=== PATIENT | male | born 1955 | race Two or more races ===

== ENCOUNTER 2016-04-21 14:37 | Inpatient (IN) | payer OTHER ==
[2016-04-21] MEDS ORDERED: ONDANSETRON 4 MG/2 ML VIAL IVP PRN (16:35)
[2016-04-21] MEDS ORDERED: ONDANSETRON DISINTEGRATING 4 MG TAB PO PRN (16:35)
[2016-04-21] MEDS: ENOXAPARIN 80 MG/0.8 ML SYR SC SCH (16:43)
[2016-04-21] MEDS ORDERED: NS 1,000 ML IV SCH (16:45)
--- NOTE | 2016-04-21 16:45 | CPEKG ---
Heart Rate: 145 RR Interval: 414 QRSD Interval: 158 QT Interval: 368 QTC Interval: 572 QRS Lisle: -103 T Wave Lisle: 76 EKG Severity - ABNORMAL ECG - EKG Impression: Atrial fibrillation with RVR Electronically Signed By: Nick Sinclair 21-Apr-2016 17:09:20
[2016-04-21] MEDS ORDERED: PROPOFOL/EMULSION 500 MG/50 ML BOTTLE IV ONE (16:46)
[2016-04-21] MEDS ORDERED: MIDAZOLAM 2 MG/2 ML VIAL ONE (16:51)
[2016-04-21] MEDS ORDERED: fentaNYL 100 MCG/2 ML INJ ONE (16:52)
[2016-04-21] MEDS ORDERED: ENOXAPARIN 80 MG/0.8 ML SYR SC SCH (17:00)
[2016-04-21] MEDS ORDERED: MIDAZOLAM 2 MG/2 ML VIAL IVP ONE (17:00)
[2016-04-21] MEDS ORDERED: WARFARIN SODIUM 5 MG TAB PO ONE (17:00)
[2016-04-21] MEDS ORDERED: fentaNYL 100 MCG/2 ML INJ IVP ONE (17:00)
--- NOTE | 2016-04-21 17:20 | PDTEE1 ---
TERESITA Cardioversion Procedure Procedure: Electrical Cardioversion, Transesophageal Echo Indications: Atrial Fibrillation Consent: Signed and in Chart Anticoagulation: Heparin Procedural Details: Pads were placed in anterior-posterior position. TERESITA probe was advanced and standard images obtained. There is no evidence of left atrial or left atrial appendage thrombus. Synchronized cardioversion attempt #1: 200J Results: Normal sinus rhythm Conclusions: Successful TERESITA Cardioversion (Procedure performed urgently.)
--- NOTE | 2016-04-21 17:24 | CPEKG ---
Heart Rate: 76 RR Interval: 789 P-R Interval: 153 QRSD Interval: 180 QT Interval: 432 QTC Interval: 486 P Wray: 91 QRS Wray: 0 T Wave Wray: 95 EKG Severity - ABNORMAL ECG - EKG Impression: A sensed and VENTRICULAR-PACED COMPLEXES Electronically Signed By: Nick Sinclair 21-Apr-2016 18:02:33
--- NOTE | 2016-04-21 17:56 | GHP ---
[f rep st] HISTORY AND PHYSICAL DATE OF ADMISSION: 04/21/2016 CHIEF COMPLAINT: Lightheadedness. HISTORY OF PRESENT ILLNESS: A 60-year-old male with a known history of coronary artery disease and ischemic cardiomyopathy who presents to an outside hospital with complaints of severe dizziness and a sensation of imminently passing out when exerting even minimal activity including simple ADLs. The patient reports being in his normal state of health. Quite stable in his cardiac medications. Was seen by his mason apprentice last week with only a mild up -titration in his diuretic regimen. Otherwise without chest pain, shortness of breath or presyncopal symptoms. The patient reports 48 hours ago noting that with minimal exertion he had the sensation that he would pass out and feel short of breath. The patient would sit and the symptoms would resolve. The patient denied at that time and with these episodes having any chest discomfort. Denied any vision changes. Denied any notable palpitations. Denied any baseline shortness of breath and reported that when he sat and rested, he would no longer feel winded. Denied any new lower extremity edema or abdominal distention. Denied any nausea, any vomiting , changes in his bowel habits, dysuria, or hematuria. PAST MEDICAL HISTORY: 1. Coronary artery disease status post percutaneous intervention in 2008 with AICD placement for VT. 2. History of ventricular tachycardia with AICD that was placed in 2008 and exchanged for a Bi-V AICD in 2016. 3. Ischemic cardiomyopathy with an ejection fraction less than 25%. SOCIAL HISTORY: Negative for tobacco, alcohol, or illicit drugs. FAMILY HISTORY: Positive for heart disease. Father from an [place]. ADVANCE DIRECTIVE: Patient is full cor, full tube. His daughter would be his medical decision maker. REVIEW OF SYSTEMS: A 10-point review of systems is negative with the exception of that reported in the HPI. PHYSICAL EXAMINATION: VITAL SIGNS: Blood pressure 100/59, heart rate in the 130s to 150s, oxygen saturation 96% on 3 L. afebrile. GENERAL: This is a pleasant appearing middle-aged male in no acute distress. HEENT: Notable for moist mucous membranes. Eye exam is negative for any icterus. CARDIAC: Patient is irregularly, irregular. PULMONARY: Good respiratory effort, is clear to auscultation bilaterally. GASTROINTESTINAL: Positive bowel sounds. ABDOMEN: Soft and nontender in all 4 quadrants. MUSCULOSKELETAL: Negative for any lower extremity edema. SKIN: Negative for any rashes. NEUROLOGIC: Patient is alert and oriented x3. PSYCHIATRIC: He is pleasant and cooperative on interview and examination. DATA: [facility] [address] [facility]: Troponin is 0.15. Creatinine is 1.4. Platelets 219. Hematocrit 42. White count is 6. EKG, which I personally reviewed and interpreted, shows atrial fibrillation with intermittent ventricular pacing. No acute ST-T changes. Echo from the outside facility: Estimated ejection fraction estimated at 15%. ASSESSMENT AND PLAN: This is a 60-year-old male with known coronary artery disease and ischemic cardiomyopathy with history of ventricular tachycardia and AICD placement who presents with lightheadedness. 1. Acute atrial fibrillation with rapid ventricular response. The patient is intermittently ventricularly pacing, but his symptoms correspond with a new onset of atrial fibrillation. His monitor did alert yesterday afternoon, which was the start of his presyncopal symptoms. The plan will be to anticoagulate with Lovenox and cardiovert here in the ICU. The patient is uninsured, so will initiate warfarin therapy this evening and check an INR in the morning. 2. Presyncope. We do suspect that this is likely multifactorial, the new onset of atrial fibrillation with rapid ventricular rates compounded by his low ejection fraction. Hopeful that his symptoms will resolve after cardioversion. Patient received 1 L of normal saline and 2 small boluses at the outside facility. He is currently at his baseline blood pressures. Will not give more fluids at this time. 3. Coronary artery disease. Patient is denying chest pain. Troponin is 0.15 at the outside facility. Will trend troponins overnight and follow EKGs. Will continue his home cardiac regimen. 4. Ischemic cardiomyopathy. The patient has an estimated ejection fraction ranging between 25% and 15%, depending on which echo you refer. Will continue his appropriate medical management from the outside clinic. The patient appears to be currently compensated on my examination. 5. History of ventricular tachycardia with biventricular AICD. The patient is in a new rhythm of atrial fibrillation. We will shock as described above and follow. Anticoagulation is being initiated. 6. Prophylaxis: Patient will be on full-dose Lovenox. DIET: NPO, as we are anticipating cardioversion. DISPOSITION: I expect greater than 2 midnights, as the patient is presenting with symptoms related to his cardiac dysrhythmia. Will require close monitoring and medication titration. I have discussed the case with Dr. Torrey Hansen from Cardiology. We will anticoagulate the patient now and coordinate with Anesthesia for cardioversion. /[id number]/MODL MTDD
[2016-04-21] MEDS: ACETAMINOPHEN 325 MG TAB PO PRN (21:02)
[2016-04-22 04:35] LABS: % IMMATURE GRANULYOCYTES 0.3 % (0.0-1.1); ABSOLUTE IMMATURE GRANULOCYTES 0.02 10^3/uL (0.00-0.10); ADD DIFF? NO; ADD MORPH? NO; ADD SCAN? NO; ATYPICAL LYMPHOCYTE FLAG 0 (0-99); FRAGMENT RBC FLAG 0 (0-99); HEMATOCRIT 41.6 % (40.0-51.0); HEMOGLOBIN 13.6 g/dL (13.7-17.5); LEFT SHIFT FLG 0 (0-99); LIPEMIA HEMOLYSIS FLAG 80 (0-99); MEAN CELL HEMOGLOBIN 31.6 pg (27.9-34.1); MEAN CELL HEMOGLOBIN CONCENTR. 32.7 g/dL (32.4-36.7); MEAN CELL VOLUME 96.5 fL (81.5-99.8); MEAN PLATELET VOLUME 11.4 fL (8.7-11.7); PLATELET CLUMPS FLAG 0 (0-99); PLATELET COUNT 212 10^3/uL (150-400); RED BLOOD CELL COUNT 4.31 10^6/uL (4.40-6.38); RED CELL DISTRIBUTION WIDTH 13.8 % (11.5-15.2)
[2016-04-22] MEDS ORDERED: HYDROmorphONE/DILAUDID 1 MG/ML SYR IVP PRN (04:41)
--- NOTE | 2016-04-22 04:47 | CPEKG ---
Heart Rate: 77 RR Interval: 779 P-R Interval: 172 QRSD Interval: 170 QT Interval: 452 QTC Interval: 512 P Galva: 0 QRS Galva: 128 T Wave Galva: 106 EKG Severity - ABNORMAL ECG - EKG Impression: ATRIAL-SENSED VENTRICULAR-PACED RHYTHM Electronically Signed By: Nick Sinclair 22-Apr-2016 09:35:29
[2016-04-22 04:58] LABS: INR 1.23 (0.83-1.16); PROTIME(PATIENT) 15.5 SEC (12.0-15.0)
[2016-04-22 05:06] LABS: ANION GAP 9 mEq/L (8-16); CALCIUM 8.9 mg/dL (8.5-10.4); CARBON DIOXIDE 20 mEq/l (22-31); CHLORIDE 109 mEq/L (97-110); GLOMERULAR FILTRATION RATE > 60; GLUCOSE 83 mg/dL (70-100); SODIUM 138 mEq/L (134-144); SPECIMEN HEMOLYSIS 103
[2016-04-22 05:10] LABS: TROPONIN I 0.058 ng/mL (0-0.034)
[2016-04-22] MEDS ORDERED: NON-FORMULARY NEW DRUG (Carvedilol [Coreg] 12.5 MG) PO SCH (09:00)
[2016-04-22] MEDS ORDERED: FUROSEMIDE 100 MG/10 ML VIAL IVP SCH (09:00)
[2016-04-22] MEDS ORDERED: FUROSEMIDE 40 MG TAB PO SCH (09:00)
[2016-04-22] MEDS ORDERED: LISINOPRIL 20 MG TAB PO SCH (09:00)
--- NOTE | 2016-04-22 09:02 | SOAPPROG ---
SOAP Progress Note Assessment/Plan: Assessment: 1. Known coronary artery disease. History of previous myocardial infarction in 2008. At that time he underwent PCI of the LAD. An ICD was implanted due to ventricular tachycardia in 2008. This was upgraded in June of 2015 to a biventricular device given ongoing issues with heart failure. Apparently, he has had 3 heart failure issues over the last 12 months. As an outpatient he is followed by Dr. Griffin. 2. Paroxysmal atrial fibrillation. This is his 1st presentation with atrial fibrillation. Historically, he has had an inappropriate ICD shock for an atrial tachycardia. Given his coronary disease, previous infarction and heart failure he certainly is at increased risk for stroke. He underwent a TERESITA cardioversion yesterday given the highly symptomatic nature of his presentation. Fortunately, he was hemodynamically stable. 3. Chronic systolic congestive heart failure . He complains of dyspnea today. This is likely on the basis of heart failure. Apparently, he did receive a significant amount of fluid when he was in the emergency department at [facility]. 4. Valvular heart disease. Plan : 1. I have ordered a PA and lateral chest x-ray. 2. I will transition him over to IV Lasix today. 3. I reduced his lisinopril dose. Instead, I would like to try to increase his Coreg dose in light of his presentation with AFib and a rapid ventricular response. 4. He will continue on Lovenox and Coumadin until his INR is therapeutic at which point the Lovenox can be discontinued. 5. I would like him to get out of bed and ambulate. 6. We will follow along with you. 04/22/16 08:54 Subjective: Yesterday, shortly after arrival, he underwent a transesophageal echo and cardioversion. Sinus rhythm was restored from atrial fibrillation with a rapid ventricular response. He has remained in sinus rhythm overnight. He has been hemodynamically stable. His current blood pressures are consistent with his outpatient blood pressures. Today, he denies chest discomfort. He does complain of dyspnea when he is lying on his back. This is a little improved when laying on his right side. He denies swelling in his legs. He has a slight cough which is nonproductive. Objective: Vital Signs Temp Pulse Resp BP Pulse Ox 37 C 72 18 90/61 L 95 04/22/16 08:00 04/22/16 08:00 04/22/16 08:00 04/22/16 08:00 04/22/16 08:00 Laboratory Results 04/22/16 04:15 04/22/16 04:15 04/21/16 04/22/16 04/23/16 05:59 05:59 05:59 Intake Total 400 Output Total 600 250 Balance -200 -250 PT 15.5 SEC (12.0-15.0) H 04/22/16 04:15 INR 1.23 (0.83-1.16) H 04/22/16 04:15 Laboratory Tests 04/21/16 04/22/16 20:10 04:15 Troponin I 0.070 H 0.058 H Physical Exam - Physical Exam General Appearance: WD/WN, no apparent distress Neck: non-tender Respiratory: lungs clear, other ( Poor air movement diffusely) Cardiac/Chest: regular rate, rhythm, No edema, No gallop, No JVD Peripheral Pulses: 2+: carotid (R), carotid (L) Neuro/Psych: alert, normal mood/affect, oriented x 3 ICD10 Worksheet Patient Problems: Problems Problem Status Diagnosed A-fib Acute
[2016-04-22] MEDS: ENOXAPARIN 80 MG/0.8 ML SYR SC SCH ×2 (10:06→21:00)
[2016-04-22] MEDS: SPIRONOLACTONE 25 MG TAB PO SCH (10:06)
[2016-04-22] MEDS: CARVEDILOL 6.25 MG TAB PO SCH ×2 (10:06→21:01)
[2016-04-22] MEDS: LISINOPRIL 10 MG TAB PO SCH (10:07)
[2016-04-22] MEDS: ASPIRIN EC 81 MG TAB PO SCH (10:07)
[2016-04-22] MEDS: FUROSEMIDE 80 MG in D5W 50 ML IV SCH ×2 (10:32→21:01)
--- NOTE | 2016-04-22 12:37 | DX ---
PA and lateral chest. Clinical History: Dyspnea, hypotension. Comparison Study: None available. Findings: Patchy infiltrate, right lower lobe, which may be secondary to pneumonia or parenchymal sca rring or asymmetric pulmonary edema. Left lung is clear. Cardiac silhouette is markedly enlarged postplacement of left subclavian transven ous pacemaker/defibrillator.. Impression: 1. Right lower lobe infiltrate, pneumonia versus asymmetric pulmonary edema versus parenchymal fibros is. 2. Marked cardiomegaly. Left subclavian transvenous pacemaker/defibrillator. .
--- NOTE | 2016-04-22 14:25 | GCON ---
[f rep st] CONSULTATION PULMONARY CRITICAL CARE CONSULTATION. DATE OF CONSULTATION: 04/22/2016 REASON FOR CONSULTATION: Intensive care unit evaluation and treatment of a gentleman admitted with congestive heart failure. HISTORY: The patient is a very pleasant 60-year-old gentleman, with known underlying coronary artery disease, and an ischemic cardiomyopathy. He is status post biventricular pacer. He is followed by [facility]. He presented to [place] yesterday with increasing shortness of breath. He was in atrial fibrillation for the 1st time. Chest x-ray was consistent with a component of acute pulmonary edema. Secondary to his care with [facility], he was transferred to [facility] and admitted. He was cardioverted last night and remains in a regular rhythm, paced. He denies any chest pain. He denies significant shortness of breath. He denies any neurologic symptoms. PAST MEDICAL HISTORY: As outlined above, with coronary artery disease, previous stenting, biventricular pacer, and AICD. He has had ventricular tachycardia in the past. He has a known ischemic cardiomyopathy with an ejection fraction of approximately 20%. SOCIAL HISTORY: He denies tobacco or alcohol. He has a supportive family. 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 FAMILY HISTORY: Positive for heart disease. REVIEW OF SYSTEMS: A 10-point review of systems is negative except as mentioned above. He is full cor per his wishes. PHYSICAL EXAMINATION: GENERAL: Reveals a very pleasant gentleman who is lying comfortably in bed. VITAL SIGNS: Blood pressure is currently approximately 90/ 60, heart rate 74, with a paced rhythm on the monitor. Respiratory rate is 18 to 20. On 4 L saturations are 94%. He is afebrile. HEENT: Unremarkable for lymphadenopathy or thyromegaly. Mucous membranes are moist. NECK: Jugular venous pressures are difficult to estimate. CHEST: Clear anteriorly. Breath sounds are somewhat diminished. There are some fine inspiratory rales at the bases, no rhonchi, no wheezing. HEART: Heart tones are distant. The rhythm is regular. A systolic murmur is present, and there is a soft apparent gallop. ABDOMEN: Soft, nontender. Bowel sounds are present. There is no organomegaly. EXTREMITIES: Without edema, cords, or tenderness. NEUROLOGIC: Nonfocal. Mental status is intact. DATABASE: Chest x-ray shows a large cardiac silhouette, with some bilateral primarily basilar infiltrates, consistent with congestive heart failure/ pulmonary edema. LABORATORY: White blood cell count 5700, hematocrit 41.6. Platelets are normal. INR on admission is 1.23. Sodium is 138, potassium 5.0, CO2 20, BUN 29 , with a creatinine of 1.0. Glucose is normal. Troponins are mildly elevated at approximately 0.06. ASSESSMENT: 1. Acute congestive heart failure secondary to atrial fibrillation, now resolved post cardioversion, in the setting of a known ischemic cardiomyopathy. The patient also did receive significant fluids which may have contributed. 2. Coronary artery disease, ischemia cardiomyopathy, status post biventricular pacer and automatic implantable cardioverter defibrillator (AICD). 3. History of hyperlipidemia. 4. Metabolic: No issues currently identified. 5. Gastrointestinal prophylaxis: None indicated. PLAN: The patient will be kept in the intensive care unit. Status can be changed to step-down. Lasix diuresis will be continued. Cardiac rhythm will be monitored. The patient is being followed by Cardiology. Medications including aspirin, Coreg, lisinopril, etc. will be continued. He will be kept on full dose anticoagulation. He is currently receiving enoxaparin and will be transitioned to Coumadin. The 1st dose of Coumadin has been given. Lasix diuresis will be continued. Laboratory and chest x-ray will be followed. He will be changed to step-down status. /[id number]/MODL MTDD
--- NOTE | 2016-04-22 15:11 | GCON ---
[f rep st] CONSULTATION CARDIOLOGY CONSULTATION DATE OF CONSULTATION: 04/21/2016 INDICATIONS: Congestive heart failure. HISTORY OF PRESENT ILLNESS: The patient is a 60-year-old male who has been seen in our outpatient cl in by Dr. Juanito Griffin. His cardiovascular history is significant for known coronary artery disease . He had an anterior wall myocardial infarction in 2008. At that time, he underwent PCI. Subsequen tly, he developed ventricular tachycardia and had an ICD placed in 2008. This was upgraded in June of 2015 to a biventricular device, given ongoing congestive heart failure. His ejection fraction at baseline is between 15% and 20%. Comorbidities include dyslipidemia and functional mitral insufficie ncy. At his baseline, he is in [place] [employer] functional class IV. Due to social issues (non [place] citizen, uninsured status), he was thought not to be a candidate for a cardiac transplant, at least here in the [place]. At his last visit, Dr. Griffin was maximizing his medications, ho wealyssa, felt that the patient had approximately 6-18 months to live. I was contacted earlier today from [facility], stating that the patient was in the [facility] department [facility]. The patient was subsequently transferred to our care. The patient states that he began feeling poorly yesterday afternoon at about noon. He had symptoms o f shortness of breath and significant fatigue as well as a sensation of presyncope. Because of this, he went to the emergency department, and was transferred to us. On arrival here, it was noted that he was in rapid atrial fibrillation. In reviewing his medical record, we received a remote alert fro m his ICD. On the , he developed rapid atrial fibrillation with a maximum ventricular rate of 140 beats per minute. It should be noted that the patient does not have a history of atrial fibrillatio n and is typically not on systemic anticoagulation. In talking to the patient with an cereal maker, he states he has mild chest pain and a fullness in his neck associated with dyspnea, fatigue, and symptoms of dizziness. PAST MEDICAL HISTORY: 1. Coronary artery disease, as described above. 2. Chronic ischemic cardiomyopathy with chronic systolic congestive heart failure. He is [place] [employer] functional class IV at baseline. 3. Hyperlipidemia. 4. History of ventricular tachycardia, status post ICD with upgrade to biventricular device. HOME MEDICATIONS: 1. Aspirin 81 mg daily. 2. Coreg 12.5 mg twice daily. 3. Lasix 40 mg by mouth twice daily. 4. Lisinopril 20 mg daily. 5. Simvastatin 80 mg daily. 6. Spironolactone 25 mg daily. ALLERGIES: None. SOCIAL HISTORY: He is . He is not a [place] citizen. He has never smoked. He does not drink alcohol. He does not use drugs. SURGICAL HISTORY: Previous ICD implantation. REVIEW OF SYSTEMS: Through an cereal maker, a 10-point review of systems was performed and was otherw ise negative. PHYSICAL EXAMINATION: VITAL SIGNS: At arrival, his blood pressure was 90/65, heart rate was 145 manuel ts per minute. He was afebrile. He did not have a significant oxygen requirement. GENERAL: He is an obese male, who is not in acute distress. HEENT: He has a thick neck with difficult to appreciate jugular veins. His carotid upstrokes are slightly blunted. RESPIRATORY: He speaks in fu ll sentences, breathing easily. He is resting comfortably. On auscultation, he has scant bibasilar rales. CARDIAC: Precordial inspection demonstrates an ICD in his left infraclavicular fossa. His P TX is laterally displaced. On auscultation, he is tachycardic. He has no 3rd or 4th heart sounds. He has 1/6 holosystolic murmur at the left sternal border. ABDOMEN: Soft and nontender. He has nor moactive bowel sounds. EXTREMITIES: Demonstrate no edema. They are, in fact, well preserved and wa rm. Vasculature has 2+ radial and dorsal pedal pulses. NEUROLOGIC: He is alert and oriented with a pleasant mood and affect. DATABASE: His ECG demonstrates atrial fibrillation, with a resting heart rate of 145 beats per minut e. He has a right bundle branch block with a strong left axis deviation consistent with a left anter ior fascicular block. There is absence of R-waves in the anterolateral precordial leads consistent w ith a previous anterior infarct. Previous chest x-ray from [facility] did not suggest an infi ltrate. His CBC and chemistry panels there were unremarkable. IMPRESSION: This is a 60-year-old male. His cardiovascular history is detailed above. He does have an end-stage ischemic cardiomyopathy with baseline [place] [employer] functional class IV he art failure. He presents now with symptoms of fatigue, weakness, and presyncope. He is found to be in atrial fibrillation with a rapid ventricular response. He does not have a history of atrial fibri llation in the past. In reviewing his remote alerts, we were alerted that he went into atrial fibril lation yesterday afternoon, coincident with the development of his symptoms. RECOMMENDATIONS: 1. I will plan for a TERESITA cardioversion urgently today. 2. He was been given Lovenox, and he will be started on Coumadin. 3. Will plan to continue his outpatient medications, although I think we may need to adjust his Core g up as much as tolerated. 4. In the past, he was thought not to be a candidate for Entresto due to tenuous hemodynamics and co st concerns. 5. At this point, there is no indication of an acute coronary syndrome. I do not think he needs [facility] cardiac catheterization. /[id number]/MODL
--- NOTE | 2016-04-22 15:32 | HOSPPROG ---
Hospitalist Progress Note Assessment/Plan: 60 yo M w/pmh of CAD, iCM pw a fib w/rvr # a fib w/rvr: s/p CV last night, ecg personally reviewed showing a sensed v paced rhythm. Continue AC with lovenox and coumadin. continue coreg # presyncope: likely all related to above, no longer having sxs # acute on chronic systolic heart failure: with EF of 15-20%, volume overloaded s/p volume resuscitation on arrival. Started on IV lasix, monitoring # acute hypoxic respiratory failure: requiring 3-4L to maintain o2 sats in the low 90s, 2/2 above, cxr personally reviewed and notable for CM, bilateral infiltrates r>L, likely asymmetric pulmonary edema but possible pna. Will repeat cxr in am. no infectious sxs currently so will monitor off of abx # hx of CAD, hx of VT with BiVICD # dispo: IP status, high risk given decompensated heart failure requiring IV diuresis # patient new to my care. old records reviewed and summarized as above. Care plan reviewed with pulmonary on multidisciplinary team rounds Subjective: feeling sob, no chest pain, no real cough, no fever or chills Objective: Vital Signs Temp Pulse Resp BP Pulse Ox 37 C 70 20 92/64 L 93 04/22/16 12:00 04/22/16 14:00 04/22/16 14:00 04/22/16 14:00 04/22/16 14:00 Laboratory Results 04/22/16 04:15 04/22/16 04:15 04/21/16 04/22/16 04/23/16 05:59 05:59 05:59 Intake Total 400 Output Total 600 250 Balance -200 -250 PT 15.5 SEC (12.0-15.0) H 04/22/16 04:15 INR 1.23 (0.83-1.16) H 04/22/16 04:15 awake alert nad anicteric op clear rrr no mrg dec bs at bases with bibasilar crackles obese soft nt nd trace ble edema warm dry well perfused oriented appropriate ICD10 Worksheet Patient Problems: Problems Problem Status Diagnosed A-fib Acute - ICD10 Problem Qualifiers (1) A-fib Qualifiers: Atrial fibrillation type: paroxysmal Qualified Description: Paroxysmal atrial fibrillation Qualifier Code(s): (I48.0) Paroxysmal atrial fibrillation
[2016-04-22] MEDS: WARFARIN SODIUM 5 MG TAB PO SCH (16:24)
[2016-04-22] MEDS ORDERED: LORazepam 0.5 MG TAB PO ONE (20:30)
[2016-04-23 05:17] LABS: ANION GAP 12 mEq/L (8-16); CALCIUM 9.3 mg/dL (8.5-10.4); CARBON DIOXIDE 26 mEq/l (22-31); CHLORIDE 104 mEq/L (97-110); CREATININE 0.9 mg/dL (0.7-1.3); GLOMERULAR FILTRATION RATE > 60; GLUCOSE 110 mg/dL (70-100); INR 1.26 (0.83-1.16); MAGNESIUM 1.8 mg/dL (1.6-2.3); POTASSIUM 3.9 mEq/L (3.5-5.2); PROTIME(PATIENT) 15.8 SEC (12.0-15.0); SODIUM 142 mEq/L (134-144)
[2016-04-23] MEDS: ENOXAPARIN 80 MG/0.8 ML SYR SC SCH ×2 (07:33→20:17)
[2016-04-23] MEDS: ACETAMINOPHEN 325 MG TAB PO PRN (07:34)
[2016-04-23] MEDS: ASPIRIN EC 81 MG TAB PO SCH (07:34)
--- NOTE | 2016-04-23 09:22 | DX ---
Chest, One View Portable April 23, 2016, at 0611 Hours History: Dyspnea. Comparison: April 22, 2016. Findings: Cardiac silhouette moderately increased in size similar to yesterday. AICD pacemaker again noted without pneumothorax. Increasing right lower lobe pleuroparenchymal opacity probably represent ing minimal pleural effusion and underlying right lower lobe pneumonia or atelectasis. Mild pulmonary venous hypertension. Left lower lobe retrocardiac opacity which may represent pneumonia or atelectas is. Impression: 1. Pacemaker without pneumothorax. 2. Cardiomegaly and mild pulmonary venous hypertension. 3. Increasing bilateral lower lobe infiltrates with minimal right pleural effusion representing focal pneumonias versus atelectasis.
--- NOTE | 2016-04-23 09:59 | SOAPPROG ---
SOAP Progress Note Assessment/Plan: Assessment: 1. Known coronary artery disease. History of previous myocardial infarction in 2008. At that time he underwent PCI of the LAD. An ICD was implanted due to ventricular tachycardia in 2008. This was upgraded in June of 2015 to a biventricular device given ongoing issues with heart failure. Apparently, he has had 3 heart failure issues over the last 12 months. As an outpatient he is followed by Dr. Griffin. 2. Paroxysmal atrial fibrillation. This is his 1st presentation with atrial fibrillation. Historically, he has had an inappropriate ICD shock for an atrial tachycardia. Given his coronary disease, previous infarction and heart failure he certainly is at increased risk for stroke. He underwent a TERESITA cardioversion yesterday given the highly symptomatic nature of his presentation. Fortunately, he was hemodynamically stable. 3. Chronic systolic congestive heart failure . He complains of dyspnea today. This is likely on the basis of heart failure. Apparently, he did receive a significant amount of fluid when he was in the emergency department at [facility]. 4. Valvular heart disease. 04/23/2016: He experienced a nice diuresis yesterday. With this, he has had significant improvement in previous complaints of shortness of breath. He states that he feels back to normal. However, his blood pressures are a little low today. Plan : 1. I will plan to get him out of bed today. I would like to reassess his hemodynamics once he is a little more awake and out of bed. 2. For the morning we have held his Coreg and lisinopril. 3. Long-term, I think he would do better with Toprol rather than Coreg in light of his tenuous hemodynamics. 4. I think it is likely that we will be able to get him home today. 04/23/16 09:58 Subjective: He states that he feels back to normal. He is not experiencing any significant dyspnea. He denies chest pain. He notes no dizziness. He has maintained sinus rhythm. This morning, his blood pressure is a little on the low side. Objective: Vital Signs Temp Pulse Resp BP Pulse Ox 36.9 C 72 27 H 87/52 L 97 04/23/16 07:38 04/23/16 07:38 04/23/16 07:38 04/23/16 07:38 04/23/16 07:38 Laboratory Results 04/22/16 04:15 04/23/16 04:50 04/22/16 04/23/16 04/24/16 05:59 05:59 05:59 Intake Total 400 700 Output Total 600 3150 Balance -200 -2450 PT 15.8 SEC (12.0-15.0) H 04/23/16 04:50 INR 1.26 (0.83-1.16) H 04/23/16 04:50 Physical Exam - Physical Exam General Appearance: WD/WN, no apparent distress Neck: non-tender, full range of motion Respiratory: lungs clear Cardiac/Chest: regular rate, rhythm, No edema, No gallop, No JVD Peripheral Pulses: 2+: carotid (R), carotid (L) ICD10 Worksheet Patient Problems: Problems Problem Status Diagnosed A-fib Acute
[2016-04-23] MEDS: LISINOPRIL 10 MG TAB PO SCH (10:13)
[2016-04-23] MEDS: FUROSEMIDE 80 MG in D5W 50 ML IV SCH (10:13)
[2016-04-23] MEDS: CARVEDILOL 6.25 MG TAB PO SCH (10:14)
[2016-04-23] MEDS: SPIRONOLACTONE 25 MG TAB PO SCH (10:14)
[2016-04-23] MEDS: ATORVASTATIN CALCIUM 40 MG TAB PO SCH ×2 (10:43→18:02)
--- NOTE | 2016-04-23 11:03 | PDINTPN ---
Industrial Sales Representative Progress Note Assessment/Plan: Assessment: Resolved atrial fibrillation, status post cardioversion. Resolving congestive heart failure, close to baseline. Ischemic cardiomyopathy. Anticoagulation: On full-dose Lovenox, started Coumadin. INR now is therapeutic. Hypoxemia: Mild. He does have oxygen at home and is well educated on how to use it. Plan: Discharged to home today. Cardiac medications per Cardiology. Follow- up per Cardiology. Will need Lovenox bridge until INR is therapeutic. To be followed in the anticoagulation clinic. 30 minutes of critical care time spent directly with the patient. Discussed with Dr. Hansen, nursing. Subjective: Doing well, wants to go home. Denies shortness of breath, denies chest pain. Objective: Vital Signs Temp Pulse Resp BP Pulse Ox 36.9 C 72 27 H 68/47 L 97 04/23/16 07:38 04/23/16 07:38 04/23/16 07:38 04/23/16 10:14 04/23/16 07:38 Laboratory Results 04/22/16 04:15 04/23/16 04:50 04/22/16 04/23/16 04/24/16 05:59 05:59 05:59 Intake Total 400 700 Output Total 600 3150 Balance -200 -2450 PT 15.8 SEC (12.0-15.0) H 04/23/16 04:50 INR 1.26 (0.83-1.16) H 04/23/16 04:50 Laboratory Tests 04/23/16 04:50 PT 15.8 H INR 1.26 H Calcium 9.3 Magnesium 1.8 CXR: James chart. Resolving congestive heart failure. Physical Exam - Physical Exam General Appearance: alert, no apparent distress, obese EENT: other (On O2 at 4 L) Neck: normal inspection (Large neck) Respiratory: lungs clear (Anteriorly), decreased breath sounds (At bases, minimal rales) Cardiac/Chest: regular rate, rhythm (Paced, with some ectopy) Abdomen: normal bowel sounds, non-tender, soft Skin: normal color, warm/dry Extremities: No pedal edema Neuro/Psych: no motor/sensory deficits, No cognition abnormalities ICD10 Worksheet Patient Problems: Problems Problem Status Diagnosed A-fib Acute
--- NOTE | 2016-04-23 15:59 | ECHO ---
[id number] + + [address] : : [place] [address] : : [phone] + + Transesophageal Echocardiographic Report + + :Name: Jacqueline GARVEY Date: 04/21/2016 05:09 PM : : Hospital Admission Number: [id number] Location: icu: :: 1955 Gender: Male : :Age: 60 yrs Race: SAGAR,OT : :Reason For Study: Rosalina HOLLIS : :History: Pre Cardioversion : + + Left Ventricle Left ventricular systolic function is severely reduced. Atria No left atrial mass or thrombus visualized. No thrombus is detected in the left atrial appendage. Conclusion A 2D transesophageal echocardiogram with color flow Doppler was performed. Left ventricular systolic function is severely reduced. No left atrial mass or thrombus visualized. No thrombus is detected in the left atrial appendage. Spontaneous contrast within the left atrium. Proceeded with successful elective DC cardioversion. Final Reading Physician: Kyree Coleman signed on 04/23/2016 03:58 PM Ordering Physician: Dung Hansen Performed By: Dung Hansen MD
[2016-04-23] MEDS: WARFARIN SODIUM 5 MG TAB PO SCH (17:01)
--- NOTE | 2016-04-23 17:42 | HOSPPROG ---
Hospitalist Progress Note Assessment/Plan: * New onset Afib with RVR s/p TERESITA/cardioversion -change to metoprolol due to hypotension -initiating warfarin - follow INR -on lovenox * Hypotension - persists -meds reduced -continue to monitor * Acute on chronic systolic CHF EF 15% -s/p IV lasix * Acute respiratory failure due to pulmonary edema -improved * Vtach s/p BiV ICD Subjective: no new complaints Objective: Vital Signs Temp Pulse Resp BP Pulse Ox 36.9 C 71 16 141/107 H 93 04/23/16 15:14 04/23/16 15:14 04/23/16 15:14 04/23/16 15:14 04/23/16 15:14 Laboratory Results 04/22/16 04:15 04/23/16 04:50 04/22/16 04/23/16 04/24/16 05:59 05:59 05:59 Intake Total 400 700 500 Output Total 600 3150 100 Balance -200 -2450 400 PT 15.8 SEC (12.0-15.0) H 04/23/16 04:50 INR 1.26 (0.83-1.16) H 04/23/16 04:50 - Physical Exam Constitutional: no apparent distress, appears nourished, not in pain Cardiovascular: regular rate and rhythym, no murmur, rub, or gallop Respiratory: no respiratory distress, no rales or rhonchi, clear to auscultation Gastrointestinal: normoactive bowel sounds, soft, non-tender abdomen, no palpable masses Skin: no rashes or abrasions, no fluctuance, no induration Neurologic: AAOx3, sensation intact bilaterally Psychiatric: interacting appropriately, not anxious, not encephalopathic, thought process linear ICD10 Worksheet Patient Problems: Problems Problem Status Diagnosed A-fib Acute
[2016-04-23] MEDS ORDERED: LORazepam 0.5 MG TAB PO PRN (22:39)
[2016-04-24] MEDS ORDERED: METOPROLOL TARTRATE 50 MG TAB PO SCH
[2016-04-24] MEDS ORDERED: WARFARIN SODIUM 5 MG TAB PO SCH
[2016-04-24 05:36] LABS: ANION GAP 9 mEq/L (8-16); CALCIUM 9.4 mg/dL (8.5-10.4); CARBON DIOXIDE 27 mEq/l (22-31); CHLORIDE 104 mEq/L (97-110); CREATININE 0.8 mg/dL (0.7-1.3); GLOMERULAR FILTRATION RATE > 60; GLUCOSE 86 mg/dL (70-100); POTASSIUM 4.4 mEq/L (3.5-5.2); SODIUM 140 mEq/L (134-144)
[2016-04-24 05:47] LABS: INR 1.4 (0.83-1.16); PROTIME(PATIENT) 17.1 SEC (12.0-15.0)
[2016-04-24 07:34] VITALS: RESP 21; TEMP 97.6
[2016-04-24] MEDS: ENOXAPARIN 80 MG/0.8 ML SYR SC SCH (08:21)
[2016-04-24] MEDS: ASPIRIN EC 81 MG TAB PO SCH (08:21)
[2016-04-24] MEDS: SPIRONOLACTONE 25 MG TAB PO SCH (09:24)
[2016-04-24] MEDS ORDERED: LISINOPRIL 10 MG TAB PO SCH (09:28)
[2016-04-24] MEDS: LISINOPRIL 10 MG TAB PO SCH (10:28)
[2016-04-24] MEDS ORDERED: LISINOPRIL 5 MG TAB PO SCH ×2 (10:30)
[2016-04-24 11:51] VITALS: BP 102/73; PULSE 70; O2SAT 90
[2016-04-24] MEDS: WARFARIN SODIUM 5 MG TAB PO SCH (13:46)
--- NOTE | 2016-04-24 17:44 | GDS ---
[f rep st] DISCHARGE SUMMARY DISCHARGE DIAGNOSES: 1. New-onset atrial fibrillation with rapid ventricular response, status post transesophageal echoca rdiogram and cardioversion. 2. Hypotension. 3. Jbtei-ui-uffhtaz systolic congestive heart failure. Ejection fraction 15%. 4. Acute respiratory failure due to pulmonary edema. 5. Ventricular tachycardia, status post biventricular implantable cardioverter-defibrillator. 6. Coronary artery disease, status post stent to left anterior descending. HISTORY: The patient is a 60-year-old male, with known cardiomyopathy, ejection fraction 15%. He pr esented with new-onset rapid atrial fibrillation. He underwent TERESITA and subsequent cardioversion, and is now maintaining normal sinus rhythm. He has been showing very low blood pressures throughout his hospitalization. Cardiology changed his Coreg to metoprolol. He was initiated on anticoagulation f or his atrial fibrillation. Warfarin was started, and he should have close outpatient followup for I NR monitoring. Due to his hypotension, we also had reduce many of his other medications including his lisinopril. Mariann clements initially got some IV fluid, which popped him into pulmonary edema, and he was successfully diurese d back to euvolemic state. DISCHARGE MEDICATIONS: Please see computer record for full detailed list. NEW MEDICATIONS: 1. Warfarin 5 mg p.o. daily. 2. Metoprolol-XL 50 mg p.o. daily. 3. Lisinopril decreased to 5 mg p.o. daily. ADDITIONAL DISCHARGE INSTRUCTIONS: Followup arranged at [facility]. He will have his INR check ed this upcoming April 27. This will be coordinated with [facility], with outpatient followup at [facility] also arranged at the time of discharge. TIME: 30 minutes' time spent arranging discharge. Patient seen and examined by me on the day of dis charge. /[id number]/MODL
[2016-04-24] MEDS ORDERED: METOPROLOL SUCCINATE XR 50 MG TAB PO SCH ×2 (20:00)
[2016-04-24] MEDS ORDERED: FUROSEMIDE 40 MG TAB PO SCH (21:00)
== END 2016-04-24 13:56 | disposition home or self-care (01) | DRG 308 ==
LOC: MERGE 16:10 → F2N 16:10 → F2W 04-23 15:21
PROVIDERS: ADMIT Student in an Organized Health Care Education/Training Program; ATTEND Internal Medicine
PROC: B246ZZ4 Ultrasonography of Right and Left Heart, Transesophageal (ICD-10-PCS; principal; 2016-04-21)
PROC: 5A2204Z Restoration of Cardiac Rhythm, Single (ICD-10-PCS; principal; 2016-04-21)
DX: I48.0 Paroxysmal atrial fibrillation (principal); I50.23 Acute on chronic systolic (congestive) heart failure; J81.1 Chronic pulmonary edema; J96.01 Acute respiratory failure with hypoxia; I25.5 Ischemic cardiomyopathy; I95.9 Hypotension, unspecified; I25.10 Atherosclerotic heart disease of native coronary artery without angina pectoris; E78.5 Hyperlipidemia, unspecified; I25.2 Old myocardial infarction; Z95.5 Presence of coronary angioplasty implant and graft; Z95.810 Presence of automatic (implantable) cardiac defibrillator
CPT/HCPCS: J1170; J1650; J2250; J2704; J3010

== ENCOUNTER 2016-10-07 10:48 | Inpatient (IN) | payer MEDICAID, OTHER ==
--- NOTE | 2016-10-07 11:06 | EDPHY ---
H & P Time Seen by Provider: 10/07/16 11:06 HPI/ROS: CHIEF COMPLAINT: Chest pain HISTORY OF PRESENT ILLNESS: discharged on 04/24/2016 with new onset atrial fibrillation and heart failure as well as history of ventricular tachycardia with implantable defibrillator. Patient developed chest pain at 8:00 a.m. 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 Chest pain is central and does not radiate. Not better worse with position or exertion. Did not actually have syncope. Symptoms are moderate to severe this morning and moderate now. REVIEW OF SYSTEMS: Eye: no change in vision ENT: no sore throat Cardiac: HPI Pulmonary: no cough or SOB Abdomen: no vomiting, diarrhea, abdominal pain Musculoskeletal: no back pain Skin: [place] sweaty earlier Neuro: no headache Constitutional: no fever : no urinary symptoms A comprehensive 10 point review of systems is otherwise negative aside from elements mentioned in the history of present illness. PAST MEDICAL HISTORY: coronary disease and pacemaker. History and physical dated 04/21/2016 includes ventricular tachycardia with AICD, ischemic cardiomyopathy. His discharge summary also notes congestive heart failure and atrial fibrillation. Social history: history and physical with [place] doctor personally in the room. 156/133, 107, 18, 93% RA, 36/T General Appearance: Alert and conversant, cooperative. Eyes: No scleral icterus. ENT, Mouth: Normal mucous membranes. Respiratory: Normal respiratory effort, breath sounds equal, lungs are clear to auscultation. Cardiovascular: Regular rate and rhythm. Gastrointestinal: Abdomen is soft and non tender. Neurological: Alert and oriented x3. Normally conversant. Face symmetric, normal movement and sensation in all extremities. Skin: Not diaphoretic. Musculoskeletal: No peripheral edema and no joint swelling. Psychiatric: Not agitated. Emergency Department course/MDM: Patient had EKG reviewed and was noted to be in a rapid wide complex tachycardia with intermittent pacing spikes. Probable atrial fibrillation with conduction delay, irregular rhythm. Patient's blood pressure started decreasing with systolics in the 70s and 80s. IV normal saline 1 L infused. Steven louis in ED at 1135. Evaluated patient and recommended cardioversion if INR is above 2. Patient continues to have normal mental status and is conversant with the wet room supervisor. Biotronic rep in ED; please see procedure notes for sedation by myself, and cardioversion performed by Dr. Harris. Echocardiogram performed in the emergency department shows ejection fraction 15% . [place] for Steven at 1414 for persistent intermittent hypotension. Request PICC line and start dopamine; at 2:[address] Harris discussed cardiac catheterization, but tells me because of the patient's INR he would like to defer that and continue with PICC line and dopamine. Dopamine started in the emergency department. At this time in discussion with the patient via donkey doctor he appears to have a normal mental status and moves all 4 extremities. Smoking Status: Never smoked Constitutional: Initial Vital Signs Heart Rate 107 H 10/07/16 10:49 Respiratory Rate 18 10/07/16 10:49 O2 Sat (%) 93 10/07/16 10:49 O2 Delivery Mode [Post Non-Rebreather Mask Procedure 3rd] O2 Delivery Mode [Post Non-Rebreather Mask Procedure 2nd] O2 Delivery Mode [Post Non-Rebreather Mask Procedure 1st] O2 Delivery Mode Non-Rebreather Mask O2 (L/minute) [Post Procedure 15 3rd] O2 (L/minute) [Post Procedure 15 2nd] O2 (L/minute) [Post Procedure 15 1st] O2 (L/minute) 15 Allergies/Adverse Reactions: No Known Allergies Allergy (Verified 10/07/16 10:57) Home Medications: Medication Instructions Recorded Aspirin EC [Aspirin EC 81 mg (*)] 81 mg PO DAILY 04/21/16 Furosemide [Lasix 40 MG (*)] 40 mg PO BID 04/21/16 Simvastatin [Zocor] 80 mg PO DAILY18 04/21/16 Spironolactone [Aldactone 25 MG 25 mg PO DAILY 04/21/16 (*)] Lisinopril [Zestril 5 mg (*)] 5 mg PO DAILY #1 tab 04/24/16 Metoprolol Succinate Xr [Toprol Xl 50 mg PO DAILY #1 tab 04/24/16 50 mg (*)] Triamcinolone 0.1% [Triamcinolone 1 jesse TP DAILY PRN 10/07/16 0.1% Cream (*)] Warfarin Sodium [Coumadin 5MG (*)] 5 mg PO DAILY16 10/07/16 Medical Decision Making - Diagnostics EKG Interpretation: 12-lead EKG interpreted by me; official reading is in trace master. My interpretation is white complex tachycardia with pacemaker spikes rate 152 probable underlying AFib. 2nd EK-lead EKG interpreted by me; official reading is in trace master. My interpretation is AV dual pacing at rate of 70. Imaging Results: Imaging Impressions Chest X-Ray 10/07/16 11:16 Impression: 1. Stable moderate to marked cardiomegaly. 2. No significant pulmonary edema seen. 3. Residual fibrotic bands of subsegmental atelectasis suspected at the lung bases. Procedures: Procedure: Procedural sedation. Indication: cardioversion. I was asked to perform sedation by Dr. Harris A pre-sedation evaluation was completed on the patient at my initial evaluation including medical history, allergies and medications, last oral intake, previous experience with sedation, airway assessment, physical examination. Patient is an appropriate candidate for procedural sedation. The risks, benefits, and alternatives of the sedation were discussed with the patient including but not limited to need for airway intervention, cardiovascular complications, ; and consent obtained. The patient is ASA class 3E.Mallampati and 3/3/2 airway assessments were completed. A time out was completed. The patient was sedated with etomidate. The patient was monitored with continuous pulse oximetry, construction inspector and end tidal CO2. There were no complications and no significant hypoxemia. I remained at the bedside for the sedation. The total time I spent in the procedural sedation was 16 minutes. Differential Diagnosis: Differential diagnosis considered for chest pain including but not limited to myocardial ischemia, aortic dissection, pericarditis, pulmonary embolus, chest wall pain, pleural inflammation and pulmonary infectious causes. Consult/Admit Bed Type: [place] [id number] Critical Care Time: Critical care time spent by me, Dr. Henson, exclusively with the care of this patient was 45 minutes, exclusive of PA or COMMODITY MERCHANT time and exclusive of separate procedures. The organ system at risk was cardiovascular and I ordered intravenous normal saline bolus, multiple diagnostic studies, discussion with clinical consultant, interface with pacemaker manufacturer's representative, intravenous pressor medication to stabilize the patient and prevent worsening of the patient 's condition. - Data Points Laboratory Results: Laboratory Results 10/07/16 11:27 10/07/16 11:27 10/07/16 10/07/16 10/07/16 11:27 11:27 11:27 WBC 7.72 10^3/uL 10^3/uL (3.80-9.50) RBC 4.55 10^6/uL 10^6/uL (4.40-6.38) Hgb 14.4 g/dL g/dL (13.7-17.5) Hct 42.2 % % (40.0-51.0) MCV 92.7 fL fL (81.5-99.8) MCH 31.6 pg pg (27.9-34.1) MCHC 34.1 g/dL g/dL (32.4-36.7) RDW 13.6 % % (11.5-15.2) Plt Count 184 10^3/uL 10^3/uL (150-400) MPV 11.0 fL fL (8.7-11.7) Neut % (Auto) 71.0 % % (39.3-74.2) Lymph % (Auto) 13.2 % L % (15.0-45.0) [place] % (Auto) 14.2 % H % (4.5-13.0) Eos % (Auto) 0.9 % % (0.6-7.6) Baso % (Auto) 0.4 % % (0.3-1.7) Nucleat RBC Rel Count 0.0 % % (0.0-0.2) Absolute Neuts (auto) 5.48 10^3/uL 10^3/uL (1.70-6.50) Absolute Lymphs (auto) 1.02 10^3/uL 10^3/uL (1.00-3.00) Absolute Monos (auto) 1.10 10^3/uL H 10^3/uL (0.30-0.80) Absolute Eos (auto) 0.07 10^3/uL 10^3/uL (0.03-0.40) Absolute Basos (auto) 0.03 10^3/uL 10^3/uL (0.02-0.10) Absolute Nucleated RBC 0.00 10^3/uL 10^3/uL (0-0.01) Immature Gran % 0.3 % % (0.0-1.1) Immature Gran # 0.02 10^3/uL 10^3/uL (0.00-0.10) PT 33.3 SEC H SEC (12.0-15.0) INR 3.21 H (0.83-1.16) APTT 48.6 SEC H SEC (23.0-38.0) Sodium 138 mEq/L mEq/L (134-144) Potassium 4.5 mEq/L mEq/L (3.5-5.2) Chloride 103 mEq/L mEq/L (97-110) Carbon Dioxide 21 mEq/l L mEq/l (22-31) Anion Gap 14 mEq/L mEq/L (8-16) BUN 28 mg/dL H mg/dL (7-23) Creatinine 1.4 mg/dL H mg/dL (0.7-1.3) Estimated GFR 52 Glucose 102 mg/dL H mg/dL (70-100) Calcium 9.1 mg/dL mg/dL (8.5-10.4) Troponin I 0.073 ng/mL H ng/mL (0-0.034) Medications Given: Discontinued Medications Etomidate (Etomidate) 10 mg IVP EDNOW ONE Stop: 10/07/16 13:15 Last Admin: 10/07/16 11:58 Dose: 10 mg Dopamine HCl/Dextrose (Dopamine 1600 Mcg/Ml (Premix)) 250 mls @ 0 mls/hr IV EDNOW ONE; Titrate PRN Reason: Protocol Stop: 10/07/16 14:17 Last Admin: 10/07/16 14:47 Dose: 250 mls Departure - Departure Disposition: [facility] Inpatient Acute Clinical Impression: Chest pain Qualifiers: Chest pain type: unspecified Qualified Code(s): R07.9 - Chest pain, unspecified Atrial fibrillation Qualifiers: Atrial fibrillation type: paroxysmal Qualified Code(s): I48.0 - Paroxysmal atrial fibrillation Condition: Serious
--- NOTE | 2016-10-07 11:06 | CPEKG ---
Heart Rate: 152 RR Interval: 395 QRSD Interval: 164 QT Interval: 372 QTC Interval: 592 QRS [place]: 264 T Wave [place]: 85 EKG Severity - ABNORMAL ECG - EKG Impression: PACEMAKER SPIKES OR ARTIFACTS EKG Impression: EXTREME TACHYCARDIA WITH WIDE COMPLEX, NO FURTHER RHYTHM ANALYSIS ATTEMPTED Electronically Signed By: Mateus Henson 07-Oct-2016 16:06:23
[2016-10-07] MEDS ORDERED: ETOMIDATE 40 MG/20 ML INJ ONE (11:33)
[2016-10-07 11:37] LABS: % IMMATURE GRANULYOCYTES 0.3 % (0.0-1.1); ABSOLUTE IMMATURE GRANULOCYTES 0.02 10^3/uL (0.00-0.10); ADD DIFF? NO; ADD MORPH? NO; ADD SCAN? NO; ATYPICAL LYMPHOCYTE FLAG 10 (0-99); FRAGMENT RBC FLAG 0 (0-99); HEMATOCRIT 42.2 % (40.0-51.0); HEMOGLOBIN 14.4 g/dL (13.7-17.5); LEFT SHIFT FLG 0 (0-99); LIPEMIA HEMOLYSIS FLAG 90 (0-99); MEAN CELL HEMOGLOBIN 31.6 pg (27.9-34.1); MEAN CELL HEMOGLOBIN CONCENTR. 34.1 g/dL (32.4-36.7); MEAN CELL VOLUME 92.7 fL (81.5-99.8); PLATELET CLUMPS FLAG 0 (0-99); PLATELET COUNT 184 10^3/uL (150-400); RED BLOOD CELL COUNT 4.55 10^6/uL (4.40-6.38); RED CELL DISTRIBUTION WIDTH 13.6 % (11.5-15.2)
[2016-10-07 11:47] LABS: INR 3.21 (0.83-1.16); PROTIME(PATIENT) 33.3 SEC (12.0-15.0)
[2016-10-07 11:48] LABS: APTT 48.6 SEC (23.0-38.0)
[2016-10-07 11:52] LABS: ANION GAP 14 mEq/L (8-16); CALCIUM 9.1 mg/dL (8.5-10.4); CARBON DIOXIDE 21 mEq/l (22-31); CHLORIDE 103 mEq/L (97-110); CREATININE 1.4 mg/dL (0.7-1.3); GLOMERULAR FILTRATION RATE 52; GLUCOSE 102 mg/dL (70-100); POTASSIUM 4.5 mEq/L (3.5-5.2); SODIUM 138 mEq/L (134-144)
[2016-10-07 12:04] LABS: TROPONIN I 0.073 ng/mL (0-0.034)
--- NOTE | 2016-10-07 12:16 | CPEKG ---
Heart Rate: 73 RR Interval: 822 P-R Interval: 172 QRSD Interval: 146 QT Interval: 389 QTC Interval: 429 P [place]: 131 QRS [place]: 107 T Wave [place]: 105 EKG Severity - ABNORMAL ECG - EKG Impression: ATRIAL-SENSED VENTRICULAR-PACED RHYTHM Electronically Signed By: Mateus Henson 07-Oct-2016 16:06:17
--- NOTE | 2016-10-07 13:06 | GCON ---
[f rep st] CONSULTATION CARDIOLOGY CONSULTATION. I have been asked to do a cardiovascular consultation on him in the emergency room because of tachycardia. Today he had the onset of chest discomfort, and the next thing he noted was that he was having very fast heartbeats. He has known heart failure with a biventricular ICD in place. He has atrial fibrillation. He is on Coumadin. He has been taking his Coumadin as INR is over 3. He was diaphoretic and lightheaded when he had his symptoms. He has coronary disease. He has a pacemaker in place. We have a planer tailer who is helping us, and we are watching him closely. His remote history has been that he had a myocardial infarction in 2008 in [facility]. At that time he got a stent in his LAD. 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 His EKG in the past showed anterior infarction, interventricular conduction delay. His ejection fraction back in 2008 was 34% to 35%. So the patient was in the hospital. At that time, he came in with feeling poorly. He felt a little shortness of breath. [place] some fatigue. He had rapid atrial fibrillation. Maximum ventricular rate was 140 at that time, and that was his first atrial fibrillation. The patient was [place] [employer] functional class 4 at baseline. At this time, he is working so he would not be class 4. His history includes hyperlipidemia, coronary disease, history of VT, ICD with an upgrade to a biventricular device. That upgrade was in June 2015. MEDICATIONS: Have included aspirin, Coreg, Lasix, lisinopril, simvastatin, spironolactone, Coumadin, ALLERGIES: The patient is not allergic to any medications. PAST SURGICAL HISTORY: Includes his ICD and his upgrade. REVIEW OF SYSTEMS: A 12-point review of systems has been done with the tie in machine operator and is negative except as noted. SOCIAL HISTORY: He is from [place]. 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 He does not smoke. He does not drink significant amounts of alcohol. PHYSICAL EXAMINATION: VITAL SIGNS: His blood pressure was 70/60 when I saw him , heart rate 160. GENERAL: He is cooperative. Lying comfortably in emergency room bed. He is overweight. NECK: Supple without adenopathy, thyromegaly. PULMONARY: Reveals rhonchi. No rales, wheezing, or dullness. ABDOMEN: Soft, nontender, without masses. CARDIOVASCULAR: He has an ICD. PMI is on 5th intercostal space 2 cm lateral to the midclavicular line. He has a soft systolic murmur. No diastolic murmur. No S3, S4. No rubs. ABDOMEN: Soft, nontender, with no masses. EXTREMITIES: No edema, inflammation or ulceration. NEUROLOGIC: Shows no cranial neuropathies, and he is moving and talking well and has no obvious motor deficits. LABORATORY DATA/STUDIES: INR is over 3. He has atrial fibrillation with a rapid ventricular response. Interrogating his ICD shows that he has ventricular tachycardia that was overdrive paced earlier. His labs are pending at the time of this dictation. ASSESSMENT AND PLAN: 1. Chest pain. 2. Coronary disease. 3. Atrial fibrillation. 4. Ventricular tachycardia. 5. Ischemic cardiomyopathy. 6. Dyslipidemia. 7. Obesity. PLAN: He is a very active gentleman doing a good job of trying to take care of himself with secondary prevention. He is taking his medications. At this point in time, he is stable, but he had chest pain. Because of his INR being extended, I will do a Lexiscan stress test tomorrow. His chest discomfort that he first had this morning came with a heart rate of 160 and may not represent significant ischemia. If he were not on Coumadin, I might proceed with coronary angiography tomorrow instead for a more definitive test, but he is on Coumadin, and I do not really want to stop the Coumadin, especially if he has no significant ischemia. He has had no complaints of ischemia up until this time. Recently he has been very active and not had limitations. In terms of his chest pain differential diagnosis, there is nothing to suggest disease of the great vessels. His pulses are full and equal. Nothing to suggest pulmonary embolic disease. Nothing to suggest even GI or pulmonary pathology as other causes such as paraesophageal hernia, GI bleed, etc. However , we will watch him closely and make sure that everything is fine. There is no evidence to suggest pancreatitis. He will be admitted to the hospital. We will watch his troponins which invariably will probably be up, and we will do the Lexiscan tomorrow. I have discussed things with him through the tie in machine operator. All of his questions were answered. His prognosis is guarded, and we will watch him very closely. Thank you very much. /[id number]/MODL MTDD
[2016-10-07] MEDS ORDERED: ETOMIDATE 20 MG/10 ML VIAL IVP ONE (13:14)
[2016-10-07] MEDS ORDERED: ONDANSETRON 4 MG/2 ML VIAL IVP PRN (13:37)
[2016-10-07] MEDS ORDERED: ONDANSETRON DISINTEGRATING 4 MG TAB PO PRN (13:37)
[2016-10-07] MEDS ORDERED: TRIAMCINOLONE 0.1% 15 GM CRTUBE TP PRN (13:40)
--- NOTE | 2016-10-07 13:53 | ECHO ---
[id number] + + [address] : : [place] [address] : : [phone] + + Adult Echocardiographic Report + --------+ :Name: ZOEY BANG Johannejim Date: 10/07/2016 01:03 PM : : Hospital Admission Number: [id number] Locat ion: ER6: :: 1955 Gender: Male Height: 66 in : :Age: 61 yrs Race: UN,U,OT Weight: 180 l b : :Reason For Study: Eval LV Fx : : BSA: 1.9 mete rs2 : :History: Post Cardioversion : + --------+ MMode/2D Measurements \T\ Calculations IVSd: 0.89 cm LVIDd: 8.4 cm FS: 4.2 % Ao root diam: LVPWd: 1.1 cm LVIDs: 8.0 cm EDV(Teich): 3.1 cm 383.1 ml ACS: 2.0 cm ESV(Teich): 348.5 ml EF(Teich): 9.0 % LVLd ap4: 9.7 cm SV(MOD-sp4): EDV(MOD-sp4): 81.0 ml 309.0 ml LVLs ap4: 10.4 cm ESV(MOD-sp4): 228.0 ml EF(MOD-sp4): 26.2 % Normal Measurement Values: + + :LVIDd (3.5-5.7cm) IVSd (0.6-1.1cm) LVPWd (0.6-1.1cm) Aortic Root (2.0-3.7cm)Left Atrium (1.5-4.0cm): :LV Vol(d) (76-115ml) LV Vol(s) (29-48ml) Ejec Fraction (50-65%)PV Keith (0.6- 1.2m/s) TV Keith (0.4-1.0m/s) : :MV E Keith (0.8-1.0m/s)MV A Keith (0.3-1.0m/s)LVOT Keith (0.7-1.2m/s) Asc Ao Keith ( 0.9-1.8m/s) : + + Doppler Measurements \T\ Calculations MV E max keith: Ao V2 max: LV V1 max: MR max keith: 72.1 cm/sec 93.7 cm/sec 49.9 cm/sec 365.0 cm/sec MV A max keith: Ao max P.5 mmHg LV V1 max PG: MR max P.4 cm/sec 1.00 mmHg 53.3 mmHg MV E/A: 1.7 PA V2 max: TR max keith: 78.7 cm/sec 315.0 cm/sec PA max P.5 mmHgTR max P.7 mmHg RAP systole: 5.0 mmHg RVSP(TR): 44.7 mmHg Left Ventricle The left ventricle is severely dilated. There is global thinning of the left ventricular pitts. Ejection Fraction = 15%. Left ventricular systolic function is severely reduced. There is severe global hypokinesis of the left ventricle. Right Ventricle There is a pacemaker lead in the right ventricle. Atria The left atrium is severely dilated. The right atrium is mild to moderately dilated. Mitral Valve There is no evidence of mitral valve prolapse. There is no mitral valve stenosis. There is mild to moderate mitral regurgitation. Tricuspid Valve There is mild tricuspid regurgitation. Right ventricular systolic pressure is 45mmHg. There is Doppler evidence for mild pulmonary hypertension. Aortic Valve The aortic valve opens well. There is no aortic stenosis. There is no aortic insufficiency. Pulmonic Valve The pulmonic valve is normal in structure and function. There is no pulmonic valvular regurgitation. Great Vessels The aortic root is normal size. Pericardium/Pleural There is no pericardial effusion. Conclusion A complete two-dimensional transthoracic echocardiogram was performed (2D, M-mode, Doppler and color flow Doppler). The left ventricle is severely dilated. There is global thinning of the left ventricular pitts. Ejection Fraction = 15%. Left ventricular systolic function is severely reduced. There is severe global hypokinesis of the left ventricle. There is a pacemaker lead in the right ventricle. The left atrium is severely dilated. There is no evidence of mitral valve prolapse. There is mild to moderate mitral regurgitation. There is mild tricuspid regurgitation. Right ventricular systolic pressure is 45mmHg. There is Doppler evidence for mild pulmonary hypertension. The aortic valve opens well. There is no pericardial effusion. Final Reading Physician: Kyree Morrison signed on 10/07/2016 01:52 PM Ordering Physician: Shahbaz Harris Performed By: Oswaldo Asif, KARENCS
[2016-10-07] MEDS ORDERED: ALTEPLASE 2 MG VIAL IVP PRN (14:15)
[2016-10-07] MEDS ORDERED: LIDOCAINE 1% 300 MG/30 ML SDV ONE (14:32)
[2016-10-07] MEDS ORDERED: IOPAMIDOL (ISOVUE-370) 150 ML BTL IV ONE (14:33)
[2016-10-07] MEDS ORDERED: fentaNYL 100 MCG/2 ML INJ ONE (14:33)
[2016-10-07] MEDS ORDERED: MIDAZOLAM 2 MG/2 ML VIAL ONE (14:33)
[2016-10-07] MEDS ORDERED: WARFARIN SODIUM 5 MG TAB PO SCH (16:00)
--- NOTE | 2016-10-07 16:38 | PDGENHP ---
History and Physical - Chief Complaint acute weakness - History of Present Illness primary care provider: [facility] Primary pick out hand: Humaira Yang HPI: 61-year-old male presenting with acute weakness characterized as generalized with associated central chest discomfort characterized as pressure and burning sensation as well as palpitations, diaphoresis, lightheadedness, shortness of breath, blurred vision. Onset of symptoms was around 8:00 a.m. on the day of presentation and it occurred approximately 1 hour after patient was physically exerting himself. During the exact onset of symptoms, the patient was at rest. Reports that the previous day he had experienced acute lightheadedness as well as blurred vision which lasted several minutes. He reports that he regularly physically exerting himself and does not experience these after mentioned symptoms. In our emergency department, the patient was noted to be in rapid atrial fibrillation and his pacemaker was interrogated. Demonstrated ventricular tachycardia with overdrive pacing. Patient received DC cardioversion and he became hypotensive. Was placed on a dopamine drip. History Information - Allergies/Home Medication List Allergies/Adverse Reactions: No Known Allergies Allergy (Verified 10/07/16 10:57) Home Medications: Aspirin EC [Aspirin EC 81 mg (*)] 81 mg PO DAILY 04/21/16 [Last Taken 10/07/16] Furosemide [Lasix 40 MG (*)] 40 mg PO BID 04/21/16 [Last Taken 10/07/16] Simvastatin [Zocor] 80 mg PO DAILY18 04/21/16 [Last Taken 10/06/16] Spironolactone [Aldactone 25 MG (*)] 25 mg PO DAILY 04/21/16 [Last Taken ] Triamcinolone 0.1% [Triamcinolone 0.1% Cream (*)] 1 jesse TP DAILY PRN 10/07/16 [ Last Taken Unknown] Warfarin Sodium [Coumadin 5MG (*)] 5 mg PO DAILY16 10/07/16 [Last Taken 10/06/16 ] I have personally reviewed and updated: family history, medical history, social history, surgical history - Past Medical History atrial fibrillation ( paroxysmal with most recent TERESITA DC cardioversion in April of 2016), coronary artery disease ( With myocardial infarction in 2008 , stent placed in the LAD at [facility]), CHF ( systolic, ischemic cardiomyopathy with last known ejection fraction 15%), hyperlipidemia Additional medical history: ventricular tachycardia - Surgical History Additional surgical history: biventricular ICD, permanent pacemaker, LAD stent - Family History Additional family history: father with myocardial infarction - Social History Smoking Status: Never smoked Alcohol Use: None Drug Use: None Additional social history: reports he has regularly physically 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, 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 Review of Systems ROS: 10pt was reviewed & negative except for what was stated in HPI & below Constitutional: Reports: weakness EENMT: Reports: blurred vision Cardiac: Reports: chest pain, lightheadedness, palpitations Respiratory: Reports: shortness of breath Physical Exam Temp Pulse Resp BP Pulse Ox 36.1 C 70 20 91/57 L 93 10/07/16 16:03 10/07/16 16:03 10/07/16 16:03 10/07/16 16:03 10/07/16 16:03 O2 (L/minute) 2 Constitutional: no apparent distress, appears nourished, not in pain Eyes: PERRL, anicteric sclera, EOMI Ears, Nose, Mouth, Throat: moist mucous membranes, hearing normal, ears appear normal, no oral mucosal ulcers Cardiovascular: systolic murmur ( 1/6 at the apex, 2/6 at the right sternal border), JVD, No irregularly irregular, No tachycardia, No edema Respiratory: no respiratory distress, no rales or rhonchi, clear to auscultation Gastrointestinal: normoactive bowel sounds, soft, non-tender abdomen, no palpable masses Skin: warm, normal color, no rashes or abrasions, no fluctuance, no induration, No mottled Neurologic: AAOx3, CN II-XII Intact, No weakness ( motor strength 5/5 bilateral upper and lower extremities), No facial droop Psychiatric: interacting appropriately, not anxious, not encephalopathic, thought process linear Lab Data & Imaging Review 10/07/16 11:27 10/07/16 11:27 WBC 7.72 10^3/uL (3.80-9.50) 10/07/16 11:27 RBC 4.55 10^6/uL (4.40-6.38) 10/07/16 11:27 Hgb 14.4 g/dL (13.7-17.5) 10/07/16 11:27 Hct 42.2 % (40.0-51.0) 10/07/16 11:27 MCV 92.7 fL (81.5-99.8) 10/07/16 11: MCH 31.6 pg (27.9-34.1) 10/07/16 11: MCHC 34.1 g/dL (32.4-36.7) 10/07/16 11:27 RDW 13.6 % (11.5-15.2) 10/07/16 11:27 Plt Count 184 10^3/uL (150-400) 10/07/16 11: MPV 11.0 fL (8.7-11.7) 10/07/16 11: Neut % (Auto) 71.0 % (39.3-74.2) 10/07/16 11: Lymph % (Auto) 13.2 % (15.0-45.0) L 10/07/16 11: [place] % (Auto) 14.2 % (4.5-13.0) H 10/07/16 11: Eos % (Auto) 0.9 % (0.6-7.6) 10/07/16 11: Baso % (Auto) 0.4 % (0.3-1.7) 10/07/16 11: Nucleat RBC Rel Count 0.0 % (0.0-0.2) 10/07/16 11: Absolute Neuts (auto) 5.48 10^3/uL (1.70-6.50) 10/07/16 11: Absolute Lymphs (auto) 1.02 10^3/uL (1.00-3.00) 10/07/16 11:27 Absolute Monos (auto) 1.10 10^3/uL (0.30-0.80) H 10/07/16 11:27 Absolute Eos (auto) 0.07 10^3/uL (0.03-0.40) 10/07/16 11: Absolute Basos (auto) 0.03 10^3/uL (0.02-0.10) 10/07/16 11: Absolute Nucleated RBC 0.00 10^3/uL (0-0.01) 10/07/16 11:27 Immature Gran % 0.3 % (0.0-1.1) 10/07/16 11:27 Immature Gran # 0.02 10^3/uL (0.00-0.10) 10/07/16 11:27 PT 33.3 SEC (12.0-15.0) H 10/07/16 11:27 INR 3.21 (0.83-1.16) H 10/07/16 11:27 APTT 48.6 SEC (23.0-38.0) H 10/07/16 11:27 VBG Lactic Acid 1.7 mmol/L (0.7-2.1) 10/07/16 14:55 Sodium 138 mEq/L (134-144) 10/07/16 11:27 Potassium 4.5 mEq/L (3.5-5.2) 10/07/16 11:27 Chloride 103 mEq/L (97-110) 10/07/16 11:27 Carbon Dioxide 21 mEq/l (22-31) L 10/07/16 11:27 Anion Gap 14 mEq/L (8-16) 10/07/16 11:27 BUN 28 mg/dL (7-23) H 10/07/16 11:27 Creatinine 1.4 mg/dL (0.7-1.3) H 10/07/16 11:27 Estimated GFR 52 10/07/16 11:27 Glucose 102 mg/dL (70-100) H 10/07/16 11:27 Calcium 9.1 mg/dL (8.5-10.4) 10/07/16 11:27 Troponin I 0.073 ng/mL (0-0.034) H 10/07/16 11:27 Visualized and Interpreted Chest x-ray results: Yes Chest X-Ray results: other ( severe cardiomegaly with atelectasis) Visualized and Interpreted EKG results: Yes EKG Interpretation: Positive for: other ( a sensed V paced) Assessment & Plan Assessment: 61-year-old male presenting with paroxysmal atrial fibrillation with acute rapid ventricular response complicated by acute kidney injury, hypotension, ischemic cardiomyopathy Plan: 1. atrial fibrillation. Paroxysmal, acute rapid ventricular response, most likely cause of patient's constellation of initial symptoms, may also have been the result of obstructive coronary disease -status post cardioversion in the emergency department with subsequent hypotension -monitor rhythm closely while on dobutamine -currently systemically anticoagulated, holding this afternoon Coumadin dosage that he can be successfully catheterized tomorrow if required after Lexiscan -will continue on beta-dominic if in when pressure stabilizes 2. hypotension. Acute, most likely secondary to a combination of severe ischemic cardiomyopathy as well as recent AFib requiring cardioversion -per Cardiology, placed on dobutamine drip and would recommend maintaining a mean arterial pressure greater than 60 -initial lactic acid level normal, repeat at 6:00 p.m. to ensure no end-organ ischemia is occurring -hold on aggressive IV fluids given his significantly impaired ejection fraction 3. Acute kidney injury. Most likely secondary to renal hypoperfusion in the setting of uncontrolled atrial fibrillation on presentation, increase renal perfusion with dobutamine, monitor urine output and serum creatinine level -holding Aldactone, holding BARBARA-inhibitor, holding Lasix 4. chest pain. Acute, potentially secondary to atrial fibrillation outlined above, also has underlying coronary artery disease and warrants further cardiac risk stratification for obstructive coronary disease -get Lexiscan stress tomorrow once the acute situation has stabilized, to be catheterized following that if warranted -continue on aspirin 81 mg daily 5. ischemic cardiomyopathy and chronic systolic congestive heart failure. Secondary to known coronary artery disease, echocardiogram performed demonstrating ejection fraction of 15% and global hypokinesis -he is at high risk for CHF exacerbation if he receives fluids or is in uncontrolled atrial fibrillation, continue to maintain the fine balance between these 2 entities -currently receiving dobutamine via PICC line to ensure adequate cardiac output , continue to monitor weight and urine output Diet. Cardiac Prophylaxis. High risk patient, currently systemically anticoagulated Code. Full, is MPOA confirmed with patient Disposition. Anticipated discharge uncertain this time, anticipated length stay is greater than 48 hours warranting inpatient admission status for acute AFib RVR with hypotension and high risk ischemic cardiomyopathy warranting ICU level care. 50 minutes of total critical care time spent with the patient, at bedside, addressing the issues as outlined above, patient remains high risk of worsening morbidity and/or mortality is critically ill.
[2016-10-07] MEDS ORDERED: DOBUTamine 500 MG in D5W 250 ML IV SCH (17:00)
[2016-10-07] MEDS: ATORVASTATIN CALCIUM 40 MG TAB PO SCH (17:26)
[2016-10-07] MEDS ORDERED: DOBUTamine/DEXTROSE 250 ML IV SCH (17:30)
[2016-10-07] MEDS: ACETAMINOPHEN 325 MG TAB PO PRN (18:07)
[2016-10-08 05:56] LABS: % IMMATURE GRANULYOCYTES 0.4 % (0.0-1.1); ABSOLUTE IMMATURE GRANULOCYTES 0.02 10^3/uL (0.00-0.10); ADD DIFF? NO; ADD MORPH? NO; ADD SCAN? NO; ATYPICAL LYMPHOCYTE FLAG 10 (0-99); FRAGMENT RBC FLAG 0 (0-99); HEMOGLOBIN 13.5 g/dL (13.7-17.5); LEFT SHIFT FLG 0 (0-99); LIPEMIA HEMOLYSIS FLAG 90 (0-99); MEAN CELL HEMOGLOBIN 31.4 pg (27.9-34.1); MEAN CELL HEMOGLOBIN CONCENTR. 33.8 g/dL (32.4-36.7); MEAN PLATELET VOLUME 10.6 fL (8.7-11.7); PLATELET CLUMPS FLAG 0 (0-99); PLATELET COUNT 165 10^3/uL (150-400); RED CELL DISTRIBUTION WIDTH 13.8 % (11.5-15.2)
[2016-10-08 06:10] LABS: ANION GAP 11 mEq/L (8-16); CALCIUM 9.1 mg/dL (8.5-10.4); CARBON DIOXIDE 23 mEq/l (22-31); CHLORIDE 108 mEq/L (97-110); GLOMERULAR FILTRATION RATE > 60; GLUCOSE 88 mg/dL (70-100); POTASSIUM 4.4 mEq/L (3.5-5.2); SODIUM 142 mEq/L (134-144)
[2016-10-08 06:11] LABS: INR 3.64 (0.83-1.16); PROTIME(PATIENT) 36.8 SEC (12.0-15.0)
[2016-10-08] MEDS: METOPROLOL SUCCINATE XR 50 MG TAB PO SCH (11:07)
[2016-10-08] MEDS: ASPIRIN EC 81 MG TAB PO SCH (11:07)
[2016-10-08] MEDS: ATORVASTATIN CALCIUM 40 MG TAB PO SCH (18:07)
--- NOTE | 2016-10-08 18:19 | HOSPPROG ---
Hospitalist Progress Note Assessment/Plan: Assessment: 61-year-old male presenting with paroxysmal atrial fibrillation with acute rapid ventricular response complicated by acute kidney injury, hypotension, ischemic cardiomyopathy Plan: 1. atrial fibrillation. Paroxysmal, acute rapid ventricular response, most likely cause of patient's constellation of initial symptoms, may also have been the result of obstructive coronary disease -status post cardioversion in the emergency department, now NSR -currently systemically anticoagulated, holding today -will continue on beta-dominic 2. hypotension. Acute, most likely secondary to a combination of severe ischemic cardiomyopathy as well as recent AFib requiring cardioversion -weaned off dobutamine gtt today 3. Acute kidney injury. Most likely secondary to renal hypoperfusion in the setting of uncontrolled atrial fibrillation on presentation -holding Aldactone, holding BARBARA-inhibitor, holding Lasix -monitor Cr, improving 4. chest pain. Acute, potentially secondary to atrial fibrillation outlined above, also has underlying coronary artery disease and warrants further cardiac risk stratification for obstructive coronary disease -get Lexiscan stress tomorrow once INR < 2, to be catheterized following that if warranted -continue on aspirin 81 mg daily, statin 5. ischemic cardiomyopathy and chronic systolic congestive heart failure. Secondary to known coronary artery disease, echocardiogram performed demonstrating ejection fraction of 15% and global hypokinesis -he is at high risk for CHF exacerbation Diet. Cardiac Prophylaxis. High risk patient, currently systemically anticoagulated Code. Full, is MPOA confirmed with patient Disposition. Anticipated discharge uncertain, stress test and possible cath tomorrow, made PCU status Subjective: no further chest pain, ambulating well to bathroom Objective: Vital Signs Temp Pulse Resp BP Pulse Ox 36.5 C 70 20 98/59 L 97 10/08/16 16:00 10/08/16 16:00 10/08/16 16:00 10/08/16 16:00 10/08/16 16:00 Laboratory Results 10/08/16 05:41 10/08/16 05:41 10/07/16 10/08/16 10/09/16 05:59 05:59 05:59 Intake Total 2346 500 Output Total 850 125 Balance 1496 375 PT 36.8 SEC (12.0-15.0) H 10/08/16 05:41 INR 3.64 (0.83-1.16) H 10/08/16 05:41 - Physical Exam Constitutional: no apparent distress, appears nourished, not in pain Cardiovascular: systolic murmur (II/ at apex), JVD, No irregularly irregular, No tachycardia, No edema Respiratory: no respiratory distress, no rales or rhonchi, clear to auscultation Gastrointestinal: normoactive bowel sounds, soft, non-tender abdomen, no palpable masses Psychiatric: interacting appropriately, not anxious, not encephalopathic, thought process linear ICD10 Worksheet Patient Problems: Problems Problem Status Onset Atrial fibrillation Acute Chest pain Acute A-fib Acute Cardiomyopathy Acute
[2016-10-09 05:21] LABS: % IMMATURE GRANULYOCYTES 0.3 % (0.0-1.1); ABSOLUTE IMMATURE GRANULOCYTES 0.02 10^3/uL (0.00-0.10); ADD DIFF? NO; ADD MORPH? NO; ADD SCAN? NO; ATYPICAL LYMPHOCYTE FLAG 0 (0-99); FRAGMENT RBC FLAG 0 (0-99); HEMATOCRIT 40.2 % (40.0-51.0); HEMOGLOBIN 13.6 g/dL (13.7-17.5); LEFT SHIFT FLG 0 (0-99); LIPEMIA HEMOLYSIS FLAG 90 (0-99); MEAN CELL HEMOGLOBIN 31.6 pg (27.9-34.1); MEAN CELL HEMOGLOBIN CONCENTR. 33.8 g/dL (32.4-36.7); MEAN CELL VOLUME 93.5 fL (81.5-99.8); MEAN PLATELET VOLUME 10.5 fL (8.7-11.7); PLATELET CLUMPS FLAG 0 (0-99); PLATELET COUNT 166 10^3/uL (150-400); RED CELL DISTRIBUTION WIDTH 13.6 % (11.5-15.2)
[2016-10-09 05:35] LABS: INR 2.81 (0.83-1.16); PROTIME(PATIENT) 29.9 SEC (12.0-15.0)
[2016-10-09 05:48] LABS: ALBUMIN 3.7 g/dL (3.5-5.0); ANION GAP 10 mEq/L (8-16); CALCIUM 9.2 mg/dL (8.5-10.4); CARBON DIOXIDE 24 mEq/l (22-31); CHLORIDE 107 mEq/L (97-110); CREATININE 0.8 mg/dL (0.7-1.3); GLOMERULAR FILTRATION RATE > 60; GLUCOSE 94 mg/dL (70-100); POTASSIUM 4.8 mEq/L (3.5-5.2); SODIUM 141 mEq/L (134-144)
--- NOTE | 2016-10-09 09:21 | SOAPPROG ---
ERNIE Progress Note Assessment/Plan: Assessment: 61 y/o man uninsured and illegal immigration status with CAD s/p LAD PCI and anterior ID in 2008 and chronic ischemic systolic CHF with LVEF 15%, severe MR and LVEDD 8.4cm admitted with afib with RVR and decompensated CHF. I meet him in 02/26 and my recommendation was a heart transplant evaluation. I discussed his case with Medical school and because of insurance and immigration status could not offer heart transplant work up. He feels okay today with no CP, heart palpitations, PND or syncope. PLAN: 1)cancel ETT cardiolite and/or heart cath. 2)lasix 60mg IV BID 3)lisinopril 5mg pO qam. 4)allow cardiac, low NACL diet. 5)okay to transfer out of ICU to [facility] on tele 6)AM tommorrow (BMP and Troponin and INR) 7)maybe home Tuesday or Tuesday. Would do palliative care consult tuesday. entire visit today done with striker off 10/09/16 09:17 Subjective: feels better today. Denies CP, palpitations, PND or cough or lightheadeness. Objective: Vital Signs Temp Pulse Resp BP Pulse Ox 36.4 C 71 18 101/68 97 10/09/16 08:00 10/09/16 08:00 10/09/16 08:00 10/09/16 08:00 10/09/16 08:00 Laboratory Results 10/09/16 05:09 10/09/16 05:09 10/08/16 10/09/16 10/10/16 05:59 05:59 05:59 Intake Total 2346 500 Output Total 850 850 Balance 1496 -350 PT 29.9 SEC (12.0-15.0) H 10/09/16 05:09 INR 2.81 (0.83-1.16) H 10/09/16 05:09 Physical Exam - Physical Exam General Appearance: alert EENT: normal ENT inspection Neck: non-tender Respiratory: rales Cardiac/Chest: regular rate, rhythm, gallop, JVD, systolic murmur Peripheral Pulses: 2+: carotid (R), carotid (L), femoral (R), femoral (L), dorsalis-pedis (R), dorsalis-pedis (L) Abdomen: non-tender, No organomegaly, No hepatomegaly, No splenomegaly Skin: warm/dry Extremities: No pedal edema Neuro/Psych: oriented x 3 ICD10 Worksheet Patient Problems: Problems Problem Status Onset Atrial fibrillation Acute Chest pain Acute A-fib Acute Cardiomyopathy Acute
[2016-10-09] MEDS: FUROSEMIDE 100 MG/10 ML VIAL IVP SCH ×2 (09:40→16:10)
[2016-10-09] MEDS: LISINOPRIL 5 MG TAB PO SCH (09:40)
[2016-10-09] MEDS: ASPIRIN EC 81 MG TAB PO SCH (09:40)
[2016-10-09] MEDS: METOPROLOL SUCCINATE XR 50 MG TAB PO SCH (09:40)
[2016-10-09] MEDS: SPIRONOLACTONE 25 MG TAB PO SCH (09:44)
--- NOTE | 2016-10-09 15:44 | HOSPPROG ---
Hospitalist Progress Note Assessment/Plan: Assessment: 61-year-old male presenting with paroxysmal atrial fibrillation with acute rapid ventricular response complicated by acute kidney injury, hypotension, ischemic cardiomyopathy and acute systolic CHF exacerbation Plan: 1. atrial fibrillation. Paroxysmal, acute rapid ventricular response, most likely cause of patient's constellation of initial symptoms and resulting in poor CO and CHF -status post cardioversion, now NSR -currently systemically anticoagulated, restart today -will continue on beta-dominic 2. hypotension. Acute, most likely secondary to a combination of severe ischemic cardiomyopathy as well as recent AFib requiring cardioversion -off dobutamine 3. Acute kidney injury. Most likely secondary to renal hypoperfusion in the setting of uncontrolled atrial fibrillation on presentation -holding Aldactone, restart ACEi/lasix -monitor Cr, UOP 4. chest pain. Acute, potentially secondary to atrial fibrillation outlined above -continue on aspirin 81 mg daily, statin 5. ischemic cardiomyopathy and acute on chronic systolic congestive heart failure. Secondary to known coronary artery disease, echocardiogram performed demonstrating ejection fraction of 15% and global hypokinesis, weight gain -d/w Dr. Griffin, he recommends starting lasix 60mg IV bid + ACEi -not transplant candidate 2/2 status -get palliative consult on 10/11 Diet. Cardiac Prophylaxis. High risk patient, currently systemically anticoagulated Code. Full, is MPOA confirmed with patient Disposition. Anticipated discharge uncertain, requiring ongoing IV diuresis Subjective: patient reports no chest pain overnight Objective: Vital Signs Temp Pulse Resp BP Pulse Ox 36.5 C 70 18 94/63 L 97 10/09/16 12:00 10/09/16 12:00 10/09/16 12:00 10/09/16 12:00 10/09/16 12:00 Laboratory Results 10/09/16 05:09 10/09/16 05:09 10/08/16 10/09/16 10/10/16 05:59 05:59 05:59 Intake Total 2346 500 Output Total 850 850 Balance 1496 -350 PT 29.9 SEC (12.0-15.0) H 10/09/16 05:09 INR 2.81 (0.83-1.16) H 10/09/16 05:09 - Physical Exam Constitutional: no apparent distress, appears nourished, not in pain Cardiovascular: systolic murmur (II/ at sternum and apex), JVD, No irregularly irregular, No tachycardia, No edema Respiratory: inspiratory crackles (bilat bases), No reduced air movement, No expiratory wheeze, No bronchial breath sounds Gastrointestinal: soft, non-tender abdomen, distension (mild), No tenderness, No guarding Psychiatric: interacting appropriately, not anxious, not encephalopathic, thought process linear ICD10 Worksheet Patient Problems: Problems Problem Status Onset Cardiomyopathy Acute Chest pain Acute Atrial fibrillation Acute A-fib Acute
[2016-10-09] MEDS: WARFARIN SODIUM 5 MG TAB PO SCH (16:10)
[2016-10-09] MEDS: ATORVASTATIN CALCIUM 40 MG TAB PO SCH (16:11)
[2016-10-10 04:19] LABS: INR 2.37 (0.83-1.16); PROTIME(PATIENT) 26.1 SEC (12.0-15.0)
[2016-10-10 04:30] LABS: ANION GAP 11 mEq/L (8-16); CALCIUM 9.2 mg/dL (8.5-10.4); CARBON DIOXIDE 26 mEq/l (22-31); CHLORIDE 102 mEq/L (97-110); CREATININE 0.9 mg/dL (0.7-1.3); GLOMERULAR FILTRATION RATE > 60; GLUCOSE 88 mg/dL (70-100); POTASSIUM 4.3 mEq/L (3.5-5.2); SODIUM 139 mEq/L (134-144)
[2016-10-10 04:41] LABS: TROPONIN I 0.058 ng/mL (0-0.034)
--- NOTE | 2016-10-10 08:02 | SOAPPROG ---
ERNIE Progress Note Assessment/Plan: Assessment: 61 y/o man uninsured and illegal immigration status with CAD s/p LAD PCI and anterior IA in 2008 and chronic ischemic systolic CHF with LVEF 15%, severe MR and LVEDD 8.4cm admitted with afib with RVR and decompensated CHF. I meet him in 02/26 and my recommendation was a heart transplant evaluation. I discussed his case with Medical school and because of insurance and immigration status could not offer heart transplant work up. He feels okay today with no CP, heart palpitations, PND or syncope. He is back at baseline weight and euvolemic and no more afib. No angina symptoms. PLAN: 1)change IV lasix to Lasix 60mg PO BID this afternoon after morning IV lasix. 2)rest of meds without changes. 3)no cath or ETT cardiolite needed currently. 4)As long as stays in NSR without arrhythmias and no rebound dramatic weight gain off IV lasix, could go home tommorrow (tuesday). 10/10/16 07:59 Subjective: no complaints this morning. Denies CP, palpitations, PND or syncope. Ambulated hallways without sx. Objective: Vital Signs Temp Pulse Resp BP Pulse Ox 36.4 C 70 16 84/55 L 97 10/09/16 23:09 10/10/16 04:00 10/10/16 04:00 10/10/16 04:00 10/10/16 04:00 Laboratory Results 10/09/16 05:09 10/10/16 04:00 10/09/16 10/10/16 10/11/16 05:59 05:59 05:59 Intake Total 500 1250 Output Total 850 400 Balance -350 850 PT 26.1 SEC (12.0-15.0) H 10/10/16 04:00 INR 2.37 (0.83-1.16) H 10/10/16 04:00 Physical Exam - Physical Exam General Appearance: alert EENT: normal ENT inspection Neck: non-tender Respiratory: lungs clear Cardiac/Chest: regular rate, rhythm, gallop, systolic murmur, No JVD Peripheral Pulses: 2+: carotid (R), carotid (L), femoral (R), femoral (L), dorsalis-pedis (R), dorsalis-pedis (L) Abdomen: non-tender, No organomegaly, No guarding Skin: warm/dry Extremities: No pedal edema Neuro/Psych: alert ICD10 Worksheet Patient Problems: Problems Problem Status Onset Atrial fibrillation Acute Chest pain Acute A-fib Acute Cardiomyopathy Acute
[2016-10-10] MEDS: ASPIRIN EC 81 MG TAB PO SCH (08:08)
[2016-10-10] MEDS: METOPROLOL SUCCINATE XR 50 MG TAB PO SCH (08:08)
[2016-10-10] MEDS: SPIRONOLACTONE 25 MG TAB PO SCH (08:10)
[2016-10-10] MEDS: LISINOPRIL 5 MG TAB PO SCH (08:10)
[2016-10-10] MEDS: FUROSEMIDE 100 MG/10 ML VIAL IVP SCH ×2 (08:11→08:37)
--- NOTE | 2016-10-10 10:49 | HOSPPROG ---
Hospitalist Progress Note Assessment/Plan: Assessment: 61-year-old male presenting with paroxysmal atrial fibrillation with acute rapid ventricular response complicated by acute kidney injury, hypotension, ischemic cardiomyopathy and acute systolic CHF exacerbation Plan: 1. atrial fibrillation. Paroxysmal, acute rapid ventricular response, most likely cause of patient's constellation of initial symptoms and resulting in poor CO and CHF -status post cardioversion, now NSR -currently systemically anticoagulated -will continue on beta-dominic 2. hypotension. Acute, most likely secondary to a combination of severe ischemic cardiomyopathy as well as recent AFib requiring cardioversion -off dobutamine 3. Acute kidney injury. Most likely secondary to renal hypoperfusion in the setting of uncontrolled atrial fibrillation on presentation -restarted ACEi/lasix/aldactone -monitor Cr, UOP 4. chest pain. Acute, potentially secondary to atrial fibrillation outlined above -continue on aspirin 81 mg daily, statin 5. ischemic cardiomyopathy and acute on chronic systolic congestive heart failure. Secondary to known coronary artery disease, echocardiogram performed demonstrating ejection fraction of 15% and global hypokinesis, weight gain -net neg 4kg LOS -per Dr. Griffin, adjust lasix to 60mg PO bid this afternoon and gauge effect over next 24hrs prior to DC -not transplant candidate 2/2 status -get palliative consult on 10/11 Diet. Cardiac Prophylaxis. High risk patient, currently systemically anticoagulated Code. Full, is MPOA confirmed with patient Disposition. Anticipated discharge 10/11, pending ability to tolerate diuretics Subjective: Denies any chest pain or shortness of breath overnight Objective: Vital Signs Temp Pulse Resp BP Pulse Ox 36.5 C 74 14 104/50 L 98 10/10/16 08:00 10/10/16 08:08 10/10/16 08:00 10/10/16 08:10 10/10/16 08:00 Laboratory Results 10/09/16 05:09 10/10/16 04:00 10/09/16 10/10/16 10/11/16 05:59 05:59 05:59 Intake Total 500 1250 Output Total 850 400 Balance -350 850 PT 26.1 SEC (12.0-15.0) H 10/10/16 04:00 INR 2.37 (0.83-1.16) H 10/10/16 04:00 - Pending Discharge Pending Discharge Within 24 Hours: Yes Pending Discharge Date: 10/11/16 Pending Discharge Time: 11:00 - Physical Exam Constitutional: no apparent distress, appears nourished, not in pain Cardiovascular: systolic murmur (2/6 at the sternum and apex), No irregularly irregular, No tachycardia, No edema Respiratory: no respiratory distress, no rales or rhonchi, clear to auscultation Gastrointestinal: normoactive bowel sounds, no palpable masses, distension (Mild ), No guarding Neurologic: AAOx3, No facial droop Psychiatric: interacting appropriately, not anxious, not encephalopathic, thought process linear ICD10 Worksheet Patient Problems: Problems Problem Status Onset Atrial fibrillation Acute Chest pain Acute A-fib Acute Cardiomyopathy Acute
[2016-10-10] MEDS: FUROSEMIDE 40 MG TAB PO SCH ×2 (13:28→13:29)
[2016-10-10] MEDS: WARFARIN SODIUM 5 MG TAB PO SCH (15:23)
[2016-10-10] MEDS: ACETAMINOPHEN 325 MG TAB PO PRN (18:08)
[2016-10-10] MEDS: ATORVASTATIN CALCIUM 40 MG TAB PO SCH (18:08)
[2016-10-10] MEDS ORDERED: ENOXAPARIN 80 MG/0.8 ML SYR SC SCH (21:00)
[2016-10-11 05:07] LABS: INR 2.19 (0.83-1.16); PROTIME(PATIENT) 24.5 SEC (12.0-15.0)
[2016-10-11 05:16] LABS: ANION GAP 11 mEq/L (8-16); CALCIUM 9.4 mg/dL (8.5-10.4); CARBON DIOXIDE 27 mEq/l (22-31); CHLORIDE 101 mEq/L (97-110); CREATININE 1.1 mg/dL (0.7-1.3); GLOMERULAR FILTRATION RATE > 60; GLUCOSE 82 mg/dL (70-100); POTASSIUM 4.5 mEq/L (3.5-5.2); SODIUM 139 mEq/L (134-144)
[2016-10-11 05:23] VITALS: RESP 16
[2016-10-11 08:13] VITALS: BP 101/67; TEMP 97.7; O2SAT 96
[2016-10-11] MEDS: FUROSEMIDE 40 MG TAB PO SCH (09:04)
[2016-10-11] MEDS: METOPROLOL SUCCINATE XR 50 MG TAB PO SCH (09:04)
[2016-10-11] MEDS: LISINOPRIL 5 MG TAB PO SCH (09:05)
[2016-10-11] MEDS: ASPIRIN EC 81 MG TAB PO SCH (09:05)
[2016-10-11] MEDS: SPIRONOLACTONE 25 MG TAB PO SCH (09:05)
[2016-10-11 09:06] VITALS: PULSE 88
--- NOTE | 2016-10-11 10:57 | PDDCSUM ---
Discharge Summary Discharge Summary: DISCHARGE SUMMARY FOLLOW-UP ITEMS: Monitor daily weights DATE OF ADMISSION: 10/07/2016 DATE OF DISCHARGE: 10/11/16 DISCHARGE DIAGNOSES: 1. Paroxysmal atrial fibrillation with acute rapid ventricular response 2. Acute hypotension 3. Acute kidney injury on chronic kidney disease stage 3 4. Acute chest pain 5. Ischemic cardiomyopathy 6. Acute on chronic systolic congestive heart failure exacerbation CONSULTATIONS: Cardiology PROCEDURES / IMAGING: DC cardioversion, PICC line placement CHIEF COMPLAINT: Acute chest pain and shortness of breath SUBJECTIVE: Patient is feeling well at time discharge, he has not had any subsequent shortness of breath overnight PHYSICAL EXAM ON DISCHARGE: Systolic blood pressure is 101, net-400 cc overnight, lungs are clear to auscultation bilaterally, no lower extremity edema, heart sounds are distant, with regular rhythm LABS ON DISCHARGE: Creatinine 1.1, potassium 4.5, BNP 2250, INR 2.2 HOSPITAL COURSE BY PROBLEM: 1. Paroxysmal atrial fibrillation with acute rapid ventricular response. The patient's presenting symptoms were most likely secondary to rapid ventricular response provoked by physical activity and cardiomyopathy. Resulted in acute CHF exacerbation. Consequently, his atrial fibrillation was cardioverted and he has been maintained in a sinus mechanism. He has been continued on his home dosage of beta-dominic and has been re-initiated on systemic anticoagulation. 2. Acute hypotension. Patient experienced hypotension status post cardioversion in the setting of severe ischemic cardiomyopathy and low baseline blood pressure. The patient did report required dobutamine and intensive care monitoring and he was weaned from dobutamine drip successfully. The patient's baseline systolic blood pressure is in the 90 to 100 range and he has been maintaining that for the 48 hours prior to discharge. 3. Acute kidney injury on chronic kidney disease stage 3. The patient demonstrated elevated creatinine level in the setting of renal hypoperfusion in the setting of uncontrolled atrial fibrillation. Had initially held his BARBARA inhibitor, Aldactone, Lasix, and provide him with IV fluids. His home medications have been re-initiated and his creatinine level has subtle to his baseline around 1.1. 4. Acute chest pain. Patient presenting with acute chest pain most likely secondary to his atrial fibrillation in the setting of ischemic cardiomyopathy. Patient was seen in consultation by the cardiology service and determined that there would be low yield for additional cardiac risk stratification at this point. Was continued on his aspirin and statin. 5. Ischemic cardiomyopathy. Patient has a known ischemic cardiomyopathy and ejection fraction of 15% with global hypokinesis as well as significant valvular issues. The patient is not a transplant candidate secondary to his status and inability to receive postoperative care. 6. Acute on chronic systolic congestive heart failure exacerbation. Secondary to rapid AFib and then subsequent IV fluids, patient had also been experiencing some weight gain prior to this presentation and required diuresis once his blood pressure had stabilized. His Lasix dosage has been increased to 60 mg twice daily and he has been maintaining a net negative to even status daily. The patient received palliative discussion with myself on the day of discharge, and although he was offered a formal palliative consultation by palliative team , the patient declined 1. He is more interested in learning about how much time is anticipated he has left so that he is able to share this information with his family. I offered him end of life counseling for his family and he has declined at this time. I have expressed to the patient that without optical medical management, his life expectancy is less than 3 months but with optimal medical management and regular, close outpatient follow-up, he can extend this to quite some time. I have shared with him that the expectation of future hospitalizations for similar issues to this presentation is completely expected and that close follow-up as well as contact with the cardiology service in the outpatient setting may help mitigate some of this risk. DISCHARGE MEDICATIONS: Please see official discharge medication reconciliation sheet in chart , increase Lasix to 60 mg twice daily. Continue other home medications. DISCHARGE INSTRUCTIONS: Please follow up with Marjan Lindo at [facility] within 1 week. TIME SPENT: Greater than 30 minutes were spent on direct patient care, as well as discharge planning and preparation.
[2016-10-11] MEDS: ACETAMINOPHEN 325 MG TAB PO PRN (11:42)
--- NOTE | 2016-10-11 13:38 | SOAPPROG ---
SOVALER[facility] Progress Note Assessment/Plan: 1. PAF - Pt has a history of PAF. He is managed with a rate control and anticoagulation strategy. He was admitted on 10/07/16 with A-fib and RVR. He was treated with DCCV and has maintained a NSR. --> Continue current therapy. --> Consider amiodarone of recurrence this year. 2. CAD - Pt has known CAD and is s/p PCI of his LAD in 2008. He did have a mild troponin elevation in the setting of DCCV and CHF. He denies symptoms of angina. Suspect his CHF exacerbation was precipitated by A-fib as opposed to ischemia. --> Continue secondary prevention. 3. CM - Pt has an ICM with an EF of 15%. He was admitted with CHF in the setting of A-fib with RVR. He was treated with DCCV and diuresis with resolutions of his symptoms. Pt reports class II to III symptoms at this time. --> Continue metoprolol, lisinopril, and spironolactone --> Continue lasix 60 mg bid --> F/U [facility] in 1 to 2 weeks. 10/11/16 13:42 Subjective: No chest pain No orthopnea or PND ambulating arround the pod with out difficulty O > I by 400 ml on PO diuretic therapy Objective: Vital Signs Temp Pulse Resp BP Pulse Ox 36.5 C 88 16 101/67 96 10/11/16 08:10 10/11/16 09:04 10/11/16 08:10 10/11/16 09:05 10/11/16 08:10 Laboratory Results 10/09/16 05:09 10/11/16 04:50 10/10/16 10/11/16 10/12/16 05:59 05:59 05:59 Intake Total 1250 900 Output Total 400 1300 Balance 850 -400 PT 24.5 SEC (12.0-15.0) H 10/11/16 04:50 INR 2.19 (0.83-1.16) H 10/11/16 04:50 Physical Exam - Physical Exam General Appearance: alert, no apparent distress Respiratory: lungs clear Cardiac/Chest: regular rate, rhythm, systolic murmur Abdomen: non-tender, soft Extremities: No pedal edema Neuro/Psych: alert ICD10 Worksheet Patient Problems: Problems Problem Status Onset Atrial fibrillation Acute Chest pain Acute A-fib Acute Cardiomyopathy Acute
== END 2016-10-11 14:49 | disposition home or self-care (01) | DRG 308 ==
LOC: F2N 16:02 → F2W 10-10 17:11
PROVIDERS: ADMIT Internal Medicine; ATTEND Internal Medicine
PROC: 5A2204Z Restoration of Cardiac Rhythm, Single (ICD-10-PCS; principal; 2016-10-07)
PROC: 02HV33Z Insertion of Infusion Device into Superior Vena Cava, Percutaneous Approach (ICD-10-PCS; 2016-10-07)
DX: I48.0 Paroxysmal atrial fibrillation (principal); N17.9 Acute kidney failure, unspecified; I50.23 Acute on chronic systolic (congestive) heart failure; N18.3 Chronic kidney disease, stage 3 (moderate); I95.9 Hypotension, unspecified; I25.10 Atherosclerotic heart disease of native coronary artery without angina pectoris; E66.9 Obesity, unspecified; I25.2 Old myocardial infarction; Z95.5 Presence of coronary angioplasty implant and graft; Z79.01 Long term (current) use of anticoagulants; Z95.810 Presence of automatic (implantable) cardiac defibrillator
CPT/HCPCS: C1751; J1250; J1265; J1644; J1940; J2250; J3010; Q9967

== ENCOUNTER → 2016-10-21 | Outpatient (CLI) | payer MEDICAID | LOC: FIMAGING 15:16 | PROVIDERS: ATTEND Internal Medicine Cardiovascular Disease | DX: Z51.81 Encounter for therapeutic drug level monitoring (principal); I47.2 Ventricular tachycardia; J44.9 Chronic obstructive pulmonary disease, unspecified; I51.7 Cardiomegaly; Z95.810 Presence of automatic (implantable) cardiac defibrillator ==

== ENCOUNTER 2017-01-16 16:03 | Inpatient (IN) | payer SELFPAY ==
--- NOTE | 2017-01-16 16:13 | EDPHY ---
H & P Stated Complaint: Chest pain Time Seen by Provider: 01/16/17 16:12 HPI/ROS: CHIEF COMPLAINT: Chest pain HISTORY OF PRESENT ILLNESS: The patient presents the ED with a 3 day history of exertional chest pain. The patient has a history of coronary artery disease. He believes he had a stent placed in 2008. The patient does have a history of atrial fibrillation. He is anticoagulated and has a pacemaker. The patient is uncertain when his last stress test was. Patient is currently chest pain-free. He has had symptoms of associated fatigue and mild nausea. He does report some a mild increasing lower extremity edema. The patient denies any abdominal pain, fever or acute cough. The patient denies pleuritic chest pain. The patient denies additional acute complaints. REVIEW OF SYSTEMS: A comprehensive 10 point review of systems is otherwise negative aside from elements mentioned in the history of present illness. Source: Patient Exam Limitations: No limitations - Personal History Current Tetanus/Diphtheria Vaccine: Yes - Medical/Surgical History Hx Asthma: No Hx Chronic Respiratory Disease: No Hx Diabetes: No Hx Cardiac Disease: Yes Hx Renal Disease: No Hx Cirrhosis: No Hx Alcoholism: No Hx HIV/AIDS: No Hx Splenectomy or Spleen Trauma: No Other PMH: Cardiac issues: previous pacemaker in 2008-sees [facility]. HTN. - Social History Smoking Status: Never smoked - Physical Exam Exam: General Appearance: Alert, no distress Eyes: Pupils equal and round no pallor or injection ENT, Mouth: Mucous membranes moist Respiratory: pacemaker noted on chest wall, there are no retractions, lungs are clear to auscultation Cardiovascular: Regular rate and rhythm Gastrointestinal: Abdomen is soft and nontender, no masses, bowel sounds normal Neurological: A&O, normal motor function, normal sensory exam, normal cranial nerves Skin: Warm and dry, no rashes Musculoskeletal: Neck is supple nontender Extremities: Trace bilateral edema Constitutional: Initial Vital Signs Temperature (C) 36.7 C 01/16/17 16:07 Heart Rate 70 01/16/17 16:07 Respiratory Rate 17 01/16/17 16:07 Blood Pressure 90/62 L 01/16/17 16:07 O2 Sat (%) 92 01/16/17 16:07 O2 Delivery Mode Room Air O2 (L/minute) 2 Allergies/Adverse Reactions: No Known Allergies Allergy (Verified 01/16/17 16:06) Home Medications: Medication Instructions Recorded Aspirin EC [Aspirin EC 81 mg (*)] 81 mg PO DAILY 04/21/16 Simvastatin [Zocor] 80 mg PO DAILY18 04/21/16 Spironolactone [Aldactone 25 MG 25 mg PO DAILY 04/21/16 (*)] Lisinopril [Zestril 5 mg (*)] 5 mg PO DAILY #1 tab 04/24/16 Metoprolol Succinate Xr [Toprol Xl 50 mg PO DAILY #1 tab 04/24/16 50 mg (*)] Warfarin Sodium [Coumadin 5MG (*)] 5 mg PO MWF@16 10/07/16 Furosemide [Lasix 40 MG (*)] 60 mg PO BID@0900,1500 #180 tab 10/11/16 Amiodarone HCl [Pacerone] 100 mg PO DAILY 01/16/17 Warfarin Sodium [Coumadin 5MG (*)] 5 mg PO SUTUTHSA@16 01/16/17 Medical Decision Making - Diagnostics EKG Interpretation: EKG: Complete interpretation has been separately recorded in the [employer] archive. Summary impression: Paced rhythm, nonspecific EKG changes are noted Imaging Results: Chest x-ray AP: Images reviewed by myself, severe cardiomegaly, no obvious severe pulmonary edema. Procedures: Procedure: Limited transthoracic echocardiogram. A limited transthoracic echocardiogram was performed and interpreted by myself for increasing cardiomegaly. Limited transthoracic echocardiogram: The pericardium was visualized and found to be negative for pericardial fluid. Cardiac activity was present. The study was negative for pericardial effusion. ED Course/Re-evaluation: The patient presents to the ED with 3 days of exertional chest pain. I reviewed the patient's past medical records including his hospitalization in September of this year. I discussed this case with his regular pharmacy resident Dr. Sinclair. The patient is not had a coronary angiogram since 2008. Dr. Sinclair would like to admit the patient to the hospital for further evaluation of his chest pain and worsening heart failure. He is asked the patient be admitted to the hospitalist service and be kept NPO after midnight. A discuss this with the patient and his family at 5:15 p.m.. They are amenable to hospitalization. The patient is currently chest pain-free. The patient does have fairly significantly increased cardiomegaly on his chest x -ray. I did perform a bedside ultrasound which demonstrates no obvious pericardial effusion. The patient was re-evaluated at 6:15 p.m.. He continues to be comfortable in the room. He is in no acute distress. His neurologic examination remains normal. He continues to be in a paced rhythm with a blood pressure of 90/60. Differential Diagnosis: Differential diagnosis considered includes acute coronary syndrome, pericarditis , congestive heart failure, myocardial infarction - Data Points Laboratory Results: Laboratory Results 01/16/17 16:17 01/16/17 16:17 01/16/17 01/16/17 16:17 16:17 WBC 8.89 10^3/uL 10^3/uL (3.80-9.50) RBC 4.70 10^6/uL 10^6/uL (4.40-6.38) Hgb 15.5 g/dL g/dL (13.7-17.5) Hct 43.8 % % (40.0-51.0) MCV 93.2 fL fL (81.5-99.8) MCH 33.0 pg pg (27.9-34.1) MCHC 35.4 g/dL g/dL (32.4-36.7) RDW 14.0 % % (11.5-15.2) Plt Count 194 10^3/uL 10^3/uL (150-400) MPV 10.2 fL fL (8.7-11.7) Neut % (Auto) 68.2 % % (39.3-74.2) Lymph % (Auto) 17.3 % % (15.0-45.0) [place] % (Auto) 12.6 % % (4.5-13.0) Eos % (Auto) 0.8 % % (0.6-7.6) Baso % (Auto) 0.2 % L % (0.3-1.7) Nucleat RBC Rel Count 0.0 % % (0.0-0.2) Absolute Neuts (auto) 6.06 10^3/uL 10^3/uL (1.70-6.50) Absolute Lymphs (auto) 1.54 10^3/uL 10^3/uL (1.00-3.00) Absolute Monos (auto) 1.12 10^3/uL H 10^3/uL (0.30-0.80) Absolute Eos (auto) 0.07 10^3/uL 10^3/uL (0.03-0.40) Absolute Basos (auto) 0.02 10^3/uL 10^3/uL (0.02-0.10) Absolute Nucleated RBC 0.00 10^3/uL 10^3/uL (0-0.01) Immature Gran % 0.9 % % (0.0-1.1) Immature Gran # 0.08 10^3/uL 10^3/uL (0.00-0.10) Sodium 135 mEq/L mEq/L (134-144) Potassium 4.1 mEq/L mEq/L (3.5-5.2) Chloride 97 mEq/L mEq/L (97-110) Carbon Dioxide 22 mEq/l mEq/l (22-31) Anion Gap 16 mEq/L mEq/L (8-16) BUN 49 mg/dL H mg/dL (7-23) Creatinine 1.6 mg/dL H mg/dL (0.7-1.3) Estimated GFR 44 Glucose 81 mg/dL mg/dL (70-100) Calcium 9.0 mg/dL mg/dL (8.5-10.4) Troponin I 0.041 ng/mL H ng/mL (0.000-0.034) NT-Pro-B Natriuret Pep 00441 pg/mL H pg/mL (0-125) Departure - Departure Disposition: [facility] Inpatient Acute Clinical Impression: Congestive heart failure, Cardiomyopathy, A-fib Condition: Fair
--- NOTE | 2017-01-16 16:14 | CPEKG ---
Heart Rate: 70 RR Interval: 857 P-R Interval: 140 QRSD Interval: 172 QT Interval: 364 QTC Interval: 393 P [place]: 0 QRS [place]: 111 T Wave [place]: 63 EKG Severity - ABNORMAL ECG - EKG Impression: ATRIAL-SENSED VENTRICULAR-PACED RHYTHM Electronically Signed By: Ayo Wharton 16-Jan-2017 16:47:52
[2017-01-16 16:27] LABS: % IMMATURE GRANULYOCYTES 0.9 % (0.0-1.1); ABSOLUTE IMMATURE GRANULOCYTES 0.08 10^3/uL (0.00-0.10); ADD DIFF? NO; ADD MORPH? NO; ADD SCAN? NO; ATYPICAL LYMPHOCYTE FLAG 0 (0-99); FRAGMENT RBC FLAG 0 (0-99); HEMATOCRIT 43.8 % (40.0-51.0); HEMOGLOBIN 15.5 g/dL (13.7-17.5); LEFT SHIFT FLG 0 (0-99); LIPEMIA HEMOLYSIS FLAG 90 (0-99); MEAN CELL HEMOGLOBIN CONCENTR. 35.4 g/dL (32.4-36.7); MEAN CELL VOLUME 93.2 fL (81.5-99.8); MEAN PLATELET VOLUME 10.2 fL (8.7-11.7); PLATELET CLUMPS FLAG 10 (0-99); PLATELET COUNT 194 10^3/uL (150-400)
[2017-01-16 16:37] LABS: ANION GAP 16 mEq/L (8-16); CARBON DIOXIDE 22 mEq/l (22-31); CHLORIDE 97 mEq/L (97-110); CREATININE 1.6 mg/dL (0.7-1.3); GLOMERULAR FILTRATION RATE 44; GLUCOSE 81 mg/dL (70-100); POTASSIUM 4.1 mEq/L (3.5-5.2); SODIUM 135 mEq/L (134-144)
[2017-01-16 16:49] LABS: TROPONIN I 0.041 ng/mL (0.000-0.034)
[2017-01-16] MEDS ORDERED: ONDANSETRON DISINTEGRATING 4 MG TAB PO PRN (17:58)
[2017-01-16] MEDS ORDERED: ACETAMINOPHEN 325 MG TAB PO PRN (17:58)
[2017-01-16] MEDS ORDERED: ONDANSETRON 4 MG/2 ML VIAL IVP PRN (17:58)
[2017-01-16 19:24] LABS: INR 3.91 (0.83-1.16)
--- NOTE | 2017-01-16 19:52 | GHP ---
[f rep st] HISTORY AND PHYSICAL DATE OF ADMISSION: 01/16/2017 CHIEF COMPLAINT: Chest pain. HISTORY OF PRESENT ILLNESS: This is a 61-year-old male, with a history of ischemic cardiomyopathy, f ollowed closely by [facility], who presents with sudden onset of sharp and burning substernal ches t pain that he notes when he walks. Patient reports that these symptoms have begun in the last 24 ho urs, are new to him, and notes that every time he tries to walk for any actual distance, that he deve lops this sharp, substernal pain, with associated burning radiation, then resolves when he rests. No t associated with palpitations, not associated with shortness of breath or pleuritic pain. The patie nt has not had any nausea or vomiting, and no noted diaphoresis by loved ones nearby. Additionally, reports an associated blurring of the vision while he has this chest discomfort. Of note, the patient was hospitalized 10/07/2016, with similar symptoms. At that time, he was noted to be in rapid AFib. Patient had DC cardioversion, ultimately stabilized, placed on a dopamine drip. Reports he has been well and followed in the outpatient setting with heart failure medications and has been feeling improved lower extremity edema and shortness of breath. He has been compliant with his medications without any difficulty. The patient denies any subjective fevers or chills. Denies any headaches. Denies any changes in his bowel habits or difficulty passing urine. Does report improved lower extremity edema. PAST MEDICAL HISTORY: 1. Ischemic cardiomyopathy. 2. Paroxysmal atrial fibrillation and history of VT with a pacemaker in place. 3. Coronary artery disease, status post LAD percutaneous intervention. Patient would be a heart tra nsplant candidate with different insurance and immigration status. 4. Hyperlipidemia. SOCIAL HISTORY: Negative for tobacco, alcohol, or illicit drugs. FAMILY HISTORY: Positive for heart disease in multiple male relatives. ADVANCED DIRECTIVES: Patient is full cor, full tube. His would be his medical decision maker. REVIEW OF SYSTEMS: A 10-point review of systems is negative with the exception of that reported in t he HPI. PHYSICAL EXAMINATION: VITAL SIGNS: Blood pressure is 96/64, heart rate 75, respiratory rate 16, 98% on 2 L, 36.7. GENERAL: This is a pleasant, middle-aged male, in no acute distress. HEENT: Notabl e for moist mucous membranes. Eyes: Negative for any icterus. CARDIAC: Patient is regular rate an d rhythm. A systolic murmur is appreciated. PULMONARY: Patient is clear to auscultation bilaterall y. GASTROINTESTINAL: Positive bowel sounds. ABDOMEN: Soft and nontender. MUSCULOSKELETAL: Negat [place] for any lower extremity edema. SKIN: Negative for any rashes. NEUROLOGIC: Patient is alert an d oriented x3. PSYCHIATRIC: He is pleasant and cooperative on interview and examination. IMAGING DATA: Chest x-ray, which I personally reviewed and interpreted, shows cardiomegaly, implante d device with no effusions or notable edema. EKG, which I personally reviewed and interpreted, shows a paced rhythm without acute ST-T changes. LABORATORY DATA: White count 8.8, hematocrit 43.8, creatinine 1.6. BNP 11,900. Troponin 0.041, gregoria r recent baseline. ASSESSMENT AND PLAN: This is a 61-year-old male presenting with chest pain. 1. Acute chest pain. Patient has known coronary artery disease and ischemic cardiomyopathy, present ing with atypical chest pain and a stable troponin excursion. Cardiology was consulted from the [facility] department, wanted the patient to be kept n.p.o. for repeat cardiac catheterization in the [facility]. Will need to review his acute kidney injury with them prior to contrast load with catheterizati on. Will keep the patient on telemetry, recheck troponin, and discuss with Cardiology in the morning . 2. Ischemic cardiomyopathy. The patient's heart failure symptoms seem improved per his description. Chest x-ray shows cardiomegaly, but no effusions. Some vascular prominence; however, his BNP is ma rkedly elevated from his last visit, and he has a new acute kidney injury. Will hold his diuretic th is evening until Cardiology is able to see him in the morning. Will not give until Cardiology in [facility]. 3. Acute kidney injury, possibly related to his diuretic regimen. Certainly more concerning would b e progression of his severe ischemic cardiomyopathy. Will hold his diuretic and his BARBARA inhibitor an d review with Cardiology in the morning. 4. Hyperlipidemia, will continue patient's statin therapy. 5. Prophylaxis. The patient is on full-dose anticoagulation and will check his INR today and in the morning, continuing his home dosing. DIET: Cardiac until n.p.o. DISPOSITION: I expect greater than 2 midnights based on his acute kidney dysfunction. Patient will need more than an ischemic workup during this hospital stay. I have discussed the case with the emergency room physician. Patient will be triaged to the PCU for cardiac monitoring and care. /[id number]/MODL
[2017-01-16] MEDS: ATORVASTATIN CALCIUM 40 MG TAB PO SCH (22:05)
[2017-01-17 05:22] LABS: APTT 46.8 SEC (23.0-38.0); INR 3.99 (0.83-1.16); PROTIME(PATIENT) 39.6 SEC (12.0-15.0)
[2017-01-17 05:41] LABS: ANION GAP 11 mEq/L (8-16); CALCIUM 8.7 mg/dL (8.5-10.4); CARBON DIOXIDE 24 mEq/l (22-31); CHLORIDE 102 mEq/L (97-110); CREATININE 1.3 mg/dL (0.7-1.3); GLOMERULAR FILTRATION RATE 57; GLUCOSE 78 mg/dL (70-100); POTASSIUM 4.1 mEq/L (3.5-5.2); SODIUM 137 mEq/L (134-144)
[2017-01-17] MEDS: METOPROLOL SUCCINATE XR 50 MG TAB PO SCH (07:44)
[2017-01-17] MEDS: AMIODARONE HCL 200 MG TAB PO SCH (07:45)
[2017-01-17] MEDS ORDERED: AMIODARONE HCL 100 MG PO SCH (09:00)
[2017-01-17] MEDS ORDERED: FUROSEMIDE 40 MG TAB PO SCH (09:00)
[2017-01-17] MEDS ORDERED: LISINOPRIL 5 MG TAB PO SCH (09:00)
--- NOTE | 2017-01-17 10:42 | ASMTCMCOM ---
CM Note CM Note Notes: Reviewed chart and discussed w/RN. Pt lives at home w/. He has been screened by [facility] and jesse submitted for [facility]. Anticipate dc home w/ when medically stable. Date Signed: 01/17/2017 10:42 AM Electronically Signed By:Cammy Fontenot RN
--- NOTE | 2017-01-17 10:49 | PDMN ---
Medical Necessity Medical necessity: Patient meets INPT criteria per physician note and MCG M-40 Angina (sudden onset burning substernal chest pain; new TY/Creat 1.6/BUN 49; hx of known CAD and ischemic cardiomyopathy, NPO awaiting cardiac cath; anticipated LOS > 2 midnights for further workup for new TY possibly related to diuretic regimen vs progression of cardiomyopathy; holding warfarin for INR 3.99.)
[2017-01-17] MEDS: ASPIRIN EC 81 MG TAB PO SCH (11:41)
--- NOTE | 2017-01-17 13:40 | HOSPPROG ---
Hospitalist Progress Note Assessment/Plan: 61-year-old with a history of coronary artery disease and ischemic cardiomyopathy is admitted with 3 days of exertional sharp chest pain. He is currently pain-free. # chest pain: Concerning for ischemia given past medical history. Patient to be seen by Cardiology for possible angiogram to be done today. Further recommendations will depend upon studies noted. #. AFib/VT. Status post pacemaker placement and AICD. Stable, tele reviewed # Elevated INR, unable to perform angiogram due to bleeding risk. * Pt will need additional midnight stay for ongoing treatment and further evaluation. #. hyperlipemia Subjective: doing well, no chest pain. Objective: Vital Signs Temp Pulse Resp BP Pulse Ox 36.8 C 70 18 98/69 L 98 01/17/17 11:29 01/17/17 11:29 01/17/17 11:29 01/17/17 11:29 01/17/17 11:29 Laboratory Results 01/17/17 04:17 01/16/17 01/17/17 01/18/17 05:59 05:59 05:59 Intake Total 200 Balance 200 PT 39.6 SEC (12.0-15.0) H 01/17/17 04:17 INR 3.99 (0.83-1.16) H 01/17/17 04:17 - Time Spent With Patient Time Spent with Patient: greater than 35 minutes Time Spent with Patient: Greater than 35 minutes spent on this patients care, greater than 50% of time spent counseling, educating, and coordinating care regarding the above mentioned plan. - Physical Exam Constitutional: no apparent distress Eyes: PERRL Ears, Nose, Mouth, Throat: moist mucous membranes Cardiovascular: regular rate and rhythym Respiratory: no respiratory distress, clear to auscultation Skin: warm Neurologic: AAOx3 Psychiatric: interacting appropriately ICD10 Worksheet Patient Problems: Problems Problem Status Onset Atrial fibrillation Acute Congestive heart failure Acute A-fib Acute Cardiomyopathy Acute Chest pain Acute
[2017-01-17] MEDS ORDERED: PHYTONADIONE 2.5 MG/2.5 ML ORAL UDL PO ONE (15:09)
[2017-01-17] MEDS ORDERED: WARFARIN SODIUM 5 MG TAB PO SCH (16:00)
[2017-01-17] MEDS: ATORVASTATIN CALCIUM 40 MG TAB PO SCH (17:05)
--- NOTE | 2017-01-17 18:26 | GCON ---
[f rep st] CONSULTATION DATE OF CONSULTATION: 01/17/2017 CHIEF COMPLAINT: We have been asked by Dr. Carrillo to evaluate the patient with a chief complaint of chest pain. HISTORY OF PRESENT ILLNESS: The patient is a 61-year-old gentleman with known coronary artery diseas e and ischemic cardiomyopathy who presents with a chief complaint of chest pain. The patient was in his usual state of health until 1-2 days prior to admission, when he began to experience chest discom fort, described as an ache in his chest extending up into his throat. The chest discomfort is not as sociated with nausea, vomiting, or diaphoresis. The chest discomfort is precipitated by exertion and relieved with rest. The patient reports a similar chest discomfort when he had episodes of atrial f ibrillation and was admitted in September of 2016. The patient's EKG demonstrates a paced rhythm with no acute ST or T-wave changes. His troponin is mildly elevated. We have been consulted to help in the further management of this patient. The patient has known coronary artery disease and is status post anterior myocardial infarction in 01 12. He was treated with percutaneous coronary intervention of his left anterior descending coronary artery at that time. His anginal or presenting symptoms were syncope. The patient also has an ische kalyn cardiomyopathy with severely reduced left ventricular systolic function. He is status post biven tricular ICD placement. The patient also has a history of paroxysmal atrial fibrillation. He has re cently started on amiodarone therapy secondary for recurrent episodes of atrial fibrillation. PAST MEDICAL HISTORY: 1. Coronary artery disease. 2. Ischemic cardiomyopathy. 3. Hypertension. 4. Hyperlipidemia. 5. Paroxysmal atrial fibrillation. MEDICATIONS: Please see medicine reconciliation form. ALLERGIES: No known drug allergies. SOCIAL HISTORY: Patient does not smoke and denies problems with alcohol. FAMILY HISTORY: Notable for coronary artery disease. REVIEW OF SYSTEMS: A 10-point review of systems is negative, except as noted in HPI. PHYSICAL EXAMINATION: GENERAL: The patient is resting comfortably in bed. He does not appear to be in acute distress at this time. VITAL SIGNS: Temperature is afebrile. Pulse is 70. Blood pressur e 98/69. Respiratory rate is 18. SaO2 is 98% on 2 L nasal cannula. HEENT: Normocephalic atraumati c. Extraocular muscles intact. NECK: No JVD. No bruits. LUNGS: Clear to auscultation bilaterall y. CARDIOVASCULAR: Regular rate and rhythm. S1, S2. Grade 2/6 holosystolic murmur is noted at the left sternal border. ABDOMEN: Soft, nontender. Normoactive bowel sounds. No hepatosplenomegaly n oted. EXTREMITIES: No clubbing, cyanosis, or edema. NEURO: Patient is awake, alert, and oriented x3. LABORATORY: White blood cell count is 8.89. Hemoglobin 15.5, hematocrit 43.8, platelet count 194. INR is 3.99. Sodium 137, potassium 4.1, chloride 102, CO2 24, BUN 44, creatinine 1.3. Troponin peak ed at 0.58. BNP is elevated at 11,900. EKG demonstrates paced rhythm. ASSESSMENT AND PLAN: The patient is a 61-year-old gentleman with return 1. Acute coronary syndrome. The patient presents with exertional chest pain concerning for an angin al equivalent. He has known coronary artery disease and is status post previous percutaneous coronar y intervention of his left anterior descending coronary artery in 2008. His EKG demonstrates no acut e ST or T-wave changes. His troponin is mildly elevated indicating myocardial irritation. Reviewed risks and benefits of cardiac catheterization. We will arrange to have this performed. Ideally, thi s would occur when his INR is less than 1.7. We will continue medical management at this time. 2. Paroxysmal atrial fibrillation. Patient has a history of paroxysmal atrial fibrillation. He is managed with a rhythm control and anticoagulation strategy. Would continue amiodarone therapy and mo nitor patient on telemetry monitoring. At this time, we will hold off on anticoagulation so we can d o cardiac catheterization. 3. Cardiomyopathy. The patient has an ischemic cardiomyopathy with an ejection fraction of 15%. He appears to be euvolemic at this time. He is certainly reporting exertional symptoms more consistent with angina than congestive heart failure. We will continue medical management for his ischemic car diomyopathy. /[id number]/MODL
[2017-01-18 04:41] LABS: INR 2.56 (0.83-1.16); PROTIME(PATIENT) 27.8 SEC (12.0-15.0)
[2017-01-18 05:20] LABS: ANION GAP 10 mEq/L (8-16); CALCIUM 8.7 mg/dL (8.5-10.4); CARBON DIOXIDE 24 mEq/l (22-31); CHLORIDE 100 mEq/L (97-110); CREATININE 1.1 mg/dL (0.7-1.3); GLOMERULAR FILTRATION RATE > 60; GLUCOSE 89 mg/dL (70-100); POTASSIUM 4.7 mEq/L (3.5-5.2); SODIUM 134 mEq/L (134-144)
[2017-01-18] MEDS: ASPIRIN EC 81 MG TAB PO SCH (09:55)
[2017-01-18] MEDS: AMIODARONE HCL 200 MG TAB PO SCH (09:55)
[2017-01-18] MEDS: METOPROLOL SUCCINATE XR 50 MG TAB PO SCH (10:01)
[2017-01-18] MEDS ORDERED: NITROGLYCERIN 0.4 MG BTL SL PRN (10:09)
[2017-01-18] MEDS ORDERED: TEMAZEPAM 15 MG CAP PO PRN (10:11)
[2017-01-18] MEDS ORDERED: PERFLUTREN LIPID MICROSPHERES 1.1 MG/ML VIAL IV ONE (11:30)
[2017-01-18] MEDS ORDERED: PHYTONADIONE 2.5 MG/2.5 ML ORAL UDL PO ONE (11:50)
--- NOTE | 2017-01-18 11:54 | PDCARPN ---
Cardiology Progress Note Chief Complaint: Patient reporting episodes of chest pressure. Assessment/Plan: Assessment: 61-year-old male with known history of CAD, ischemic cardiomyopathy, hypertension, hyperlipidemia, paroxysmal atrial fibrillation, remote AICD implantation. Admitted with ongoing chest pressure on January 16, with elevated troponin of 0.041,. Fully anticoagulated on warfarin with INR on admission of 3.91. Elevated BNP of 11,900. Initial electrocardiogram showing AV paced. Patient's most recent echocardiogram (10/07/2016) with EF of 15% with severe left ventricular systolic function, global hypokinesis of the LV, LA severely dilated, moderate MR, RVSP of [address] Siddiqi yesterday, with plans for cardiac catheterization once INR is less than 1.7. Patient given vitamin K yesterday afternoon. Today, patient is Occitan-speaking only, and seen with professional lang interpreter. He reports mild episode during the night of midsternal chest pressure, lasting for approximately 1 and half to 2 hours. Denies of any increased shortness of breath, has had no palpitations, lightheadedness, near- syncope, or syncopal events. Laboratory studies drawn showing INR of 2.56. Continuous cardiac monitoring showing AV paced, with no malignant arrhythmias, rare PVC, no pauses. Patient denies of any therapeutic shocks from AICD. Systolic blood pressure noted to be running in low to high 90s throughout the evening. Physical examination, he appears fairly euvolemic. Plan: 1. Chest pain/CAD: Patient with known history of CAD, reporting exertional chest pain on admission. Mildly elevated troponin on admission with downward decline follow-up. EKG showing no acute ST or T-wave abnormalities, discussed with Dr. Siddiqi, felt to be appropriate candidate to undergo cardiac catheterization for further evaluation. INR to high today 2.5 will repeat vitamin K this afternoon, repeat INR in a.m., and NPO after midnight for cardiac catheterization. Until then, patient will remain on anti-platelet therapy of aspirin, continue on beta-dominic. Sublingual nitroglycerin has been ordered. If patient has recurrent chest pain, that does not resolve quickly, or has any significant EKG changes, then we can consider changing his cardiac catheterization to more of an urgent status. 2. Ischemic cardiomyopathy: Patient's most recent echocardiogram showing EF of 15%, he appears to be fairly euvolemic on physical examination today, but noted to have elevated BNP. Systolic blood pressure soft in the 90s. Will continue him on metoprolol as mentioned above, hold his lisinopril. Will resume his current diuretic of Lasix 40 mg p.o. twice daily, and Aldactone. Would like him to have a repeated echocardiogram done today for re-evaluation of LV function, and to assure no wall motion abnormality. Patient has AICD. 3. PAF: Maintain av paced on monitor, no runs of AFib noted. Anticoagulation held in preparation for cardiac catheterization. Continued on home metoprolol and amiodarone. 4. Hyperlipidemia: Resume home atorvastatin dosage. 01/18/17 11:51 Subjective: Patient reports episode of chest pressure last evening, lasting approximately 1 hour to an 1.5 Hours. Denies of any palpitations, lightheadedness, increased shortness of breath, orthopnea, PND, near-syncope or syncopal events. Denies of any therapeutic shocks from AICD.. Reviewed/Discussed With: hospitalist (Dr Perera), other (Dr Siddiqi) Objective: Vital Signs (8 Hrs) Temp Pulse Resp BP Pulse Ox 01/18/17 11:17 36.6 C 70 18 104/71 96 01/18/17 10:01 70 106/74 01/18/17 07:19 36.6 C 70 18 90/64 L 98 01/18/17 04:00 36.7 C 70 16 89/63 L 98 Intake/Output (24 Hrs) 01/17/17 01/18/17 01/19/17 05:59 05:59 05:59 Intake Total 200 1950 200 Balance 200 1950 200 Intake: Oral (ml) 200 1950 200 Other: Weight 74.843 kg Intake Quantity No Yes Sufficient Number of Voids Toilet 1 3 Number of Stools Toilet 1 Result Diagrams: 01/16/17 16:17 01/18/17 03:34 Cardiac Labs: Cardiac Lab Results (72 Hrs) 01/16/17 21:15 Troponin I 0.037 H - Physical Exam Constitutional: healthy appearing, no apparent distress Ears, Nose, Mouth, Throat: moist mucous membranes Cardiovascular: regular rate and rhythm, no rubs, systolic murmur ( 1 to 2/6 along sternal line.), pulses symmetric bilat, No jugular vein distention, No carotid bruit Peripheral Pulses: 2+: carotid (R), carotid (L) Respiratory: other ( Lungs are clear but diminished in bases bilateral. No rhonchi, rales, or wheezing noted.) Gastrointestinal: normoactive bowel sounds Skin: warm, no edema Neurologic: AAOx3 Psychiatric: cooperative, interactive, following commands ICD10 Worksheet Patient Problems: Problems Problem Status Onset Cardiomyopathy Acute Chest pain Acute Atrial fibrillation Acute Congestive heart failure Acute A-fib Acute
--- NOTE | 2017-01-18 13:29 | ECHO ---
[email or web address] [address] [address] Main: [phone] Fax: Transthoracic Echocardiogram Name: ZOEY BANG MR#: [id number] Study Date: 01/18/2017 Study Time: 10:37 AM Date of : 1955 Age: 61 year(s) Height: 165.1 cm (65 in.) Weight: 78.02 kg (172 lb.) BSA: 1.86 m2 Gender: Male Examination: Echo Indication: Systolic heart failure/CAD/Defibrillator/Cardiomyopathy Image Quality: Contrast: Requested by: Jerman Valera BP: 106 mmHg/74 mmHg Heart Rate: Rhythm: Indication: Systolic heart failure/CAD/Defibrillator/Cardiomyopathy Procedure Staff Ticketing Agent: Rashmi Venegas Reading Physician: Grzegorz Baltazar Requesting Provider: Conclusions: Severely dilated left ventricle. The ejection fraction is estimated to be 10-15 %. No LV apical thrombus. There is an ICD lead noted in the right ventricle. The left atrium is severely dilated. The right atrium is mildly dilated. Moderate mitral valve regurgitation is present. Trivial aortic valve regurgitation. Mild tricuspid regurgitation is present. The pulmonary artery pressure is mildly increased. Trivial pulmonic valve regurgitation. No pericardial effusion. Measurements: Chambers Valvular Assessment AV/MV Valvular Assessment TV/PV Normal Normal Normal Name Value Range Name Value Range Name Value Range Ao Aranza (MM): 2.9 cm (2.2 cm-3.7 AV meanP mmHg ( - ) TR Vmax: 3.22 mm/s ( - ) cm) LVOT Vmax: 0.56 m/s (0.7 m/s-1.1 TR PGmax: 41 mmHg ( - ) IVSd (2D): 0.5 cm (0.6 cm-1.1 m/s) syst. PAP: 51 mmHg ( - ) cm) ROSE (VTI): 2.5 cm ( - ) LVDd (2D): 8.4 cm (4.2 cm-5.9 MV meanP mmHg ( - ) cm) MVA (Vmax): 1.6 m/s ( - ) LVPWd (2D): 0.9 cm (0.6 cm-1 cm) LVOTd 2.2 cm 2.2 cm mm LVEF (MOD4): 18 % (>=55 %) EF Range: 10-15 % Patient: ZOEY BANG Study Date: 01/18/2017 Page 1 of 2 10:37 AM Continued Measurements: Chambers Valvular Assessment AV/MV Valvular Assessment TV/PV Name Value Name Value Name Value LADs: 6.5 cm MV Annulus: 3.6 cm CVP (est.): 10 mmHg LADs Lon.2 cm MV VTI: 25.10 cm LA Area: 48.6 cm2 MR ERO: 0.250 cm2 MR PISA radius: 7 mm MR Reg. Volume: 31 ml MR Reg. Fraction: 12 % Findings: Left Ventricle: Severely dilated left ventricle. The ejection fraction is estimated to be 10-15 %. No LV apical thrombus. Right Ventricle: Normal size right ventricle. There is an ICD lead noted in the right ventricle. Left Atrium: The left atrium is severely dilated. Right Atrium: The right atrium is mildly dilated. Mitral Valve: The mitral valve is normal in appearance. Moderate mitral valve regurgitation is present. Aortic Valve: The aortic valve is normal in appearance. Trivial aortic valve regurgitation. Tricuspid Valve: The tricuspid valve appears normal. Mild tricuspid regurgitation is present. The pulmonary artery pressure is mildly increased. Pulmonic Valve: The pulmonic valve is normal in appearance. Trivial pulmonic valve regurgitation. Pericardium: No pericardial effusion. Exam Comments: Definity used to eval LV apex for thrombus.. (No Signature Object) Patient: ZOEY BANG Study Date: 01/18/2017 Page 2 of 2 10:37 AM [id number]
[2017-01-18] MEDS: FUROSEMIDE 40 MG TAB PO SCH (14:36)
--- NOTE | 2017-01-18 14:48 | HOSPPROG ---
Hospitalist Progress Note Assessment/Plan: 61-year-old with a history of coronary artery disease and ischemic cardiomyopathy is admitted with 3 days of exertional sharp chest pain. He is currently pain-free. # chest pain: Concerning for ischemia given past medical history. Patient to be seen by Cardiology and plan for angiogram when INR<2 #. AFib/VT. Status post pacemaker placement and AICD. Stable, tele reviewed # Elevated INR, unable to perform angiogram due to bleeding risk. * Pt will need additional midnight stay for ongoing treatment and further evaluation. #. hyperlipemia Subjective: had brief episode of cp last night, none now Objective: Vital Signs Temp Pulse Resp BP Pulse Ox 36.6 C 70 18 104/71 96 01/18/17 11:17 01/18/17 11:17 01/18/17 11:17 01/18/17 11:17 01/18/17 11:17 Laboratory Results 01/18/17 03:34 01/17/17 01/18/17 01/19/17 05:59 05:59 05:59 Intake Total 200 1950 200 Balance 200 1950 200 PT 27.8 SEC (12.0-15.0) H D 01/18/17 03:34 INR 2.56 (0.83-1.16) H 01/18/17 03:34 - Physical Exam Constitutional: no apparent distress Ears, Nose, Mouth, Throat: moist mucous membranes Cardiovascular: regular rate and rhythym, no murmur, rub, or gallop Respiratory: no respiratory distress, clear to auscultation ICD10 Worksheet Patient Problems: Problems Problem Status Onset Cardiomyopathy Acute Chest pain Acute Atrial fibrillation Acute Congestive heart failure Acute A-fib Acute
[2017-01-18] MEDS ORDERED: WARFARIN SODIUM 5 MG TAB PO SCH (16:00)
[2017-01-18] MEDS: ATORVASTATIN CALCIUM 40 MG TAB PO SCH (18:13)
[2017-01-19 05:22] LABS: % IMMATURE GRANULYOCYTES 1.5 % (0.0-1.1); ABSOLUTE IMMATURE GRANULOCYTES 0.11 10^3/uL (0.00-0.10); ADD DIFF? NO; ADD MORPH? NO; ADD SCAN? NO; ATYPICAL LYMPHOCYTE FLAG 0 (0-99); FRAGMENT RBC FLAG 0 (0-99); HEMATOCRIT 42.7 % (40.0-51.0); LEFT SHIFT FLG 10 (0-99); LIPEMIA HEMOLYSIS FLAG 90 (0-99); MEAN CELL HEMOGLOBIN CONCENTR. 35.1 g/dL (32.4-36.7); MEAN CELL VOLUME 94.1 fL (81.5-99.8); MEAN PLATELET VOLUME 10.3 fL (8.7-11.7); PLATELET CLUMPS FLAG 0 (0-99); PLATELET COUNT 180 10^3/uL (150-400); RED BLOOD CELL COUNT 4.54 10^6/uL (4.40-6.38); RED CELL DISTRIBUTION WIDTH 13.5 % (11.5-15.2)
[2017-01-19 05:26] LABS: APTT 31.5 SEC (23.0-38.0); INR 1.46 (0.83-1.16); PROTIME(PATIENT) 17.7 SEC (12.0-15.0)
[2017-01-19 05:39] LABS: ANION GAP 10 mEq/L (8-16); CALCIUM 8.9 mg/dL (8.5-10.4); CARBON DIOXIDE 27 mEq/l (22-31); CHLORIDE 99 mEq/L (97-110); CHOLESTEROL 159 mg/dL (140-220); CHOLESTEROL/HDL RATIO 3.79 RATIO (1.00-4.97); CREATININE 1.1 mg/dL (0.7-1.3); GLOMERULAR FILTRATION RATE > 60; GLUCOSE 86 mg/dL (70-100); HIGH DENSITY LIPOPROTEIN 42 mg/dL (40-65); LDL/HDL RATIO 1.69 RATIO (1.00-3.64); LOW DENSITY LIPOPROTEIN 71 mg/dL (80-100); MAGNESIUM 2.2 mg/dL (1.6-2.3); NON-HIGH DENSITY LIPOPROTEIN 117 mg/dL (90-129); POTASSIUM 4.7 mEq/L (3.5-5.2); SODIUM 136 mEq/L (134-144); TRIGLYCERIDE 233 mg/dL (40-150); VERY LOW DENSITY LIPOPROTEINS 46 mg/dL (8-25)
[2017-01-19] MEDS ORDERED: DIAZEPAM 5 MG TAB PO ONE ×2 (06:00→08:45)
[2017-01-19] MEDS ORDERED: diphenhydrAMINE 25 MG CAP PO ONE ×2 (06:00→08:45)
[2017-01-19] MEDS ORDERED: ASPIRIN EC 325 MG TAB PO ONE ×2 (06:00→08:45)
[2017-01-19] MEDS ORDERED: FAMOTIDINE 20 MG TAB PO ONE ×2 (06:00→08:45)
[2017-01-19] MEDS ORDERED: NS 1,000 ML IV ONE ×2 (06:00→09:00)
--- NOTE | 2017-01-19 08:39 | CPEKG ---
Heart Rate: 70 RR Interval: 857 P-R Interval: 148 QRSD Interval: 178 QT Interval: 376 QTC Interval: 406 P Shonto: 0 QRS Shonto: 69 EKG Severity - ABNORMAL ECG - EKG Impression: A-V DUAL-PACED RHYTHM WITH SOME INHIBITION Electronically Signed By: Shahbaz Harris 19-Jan-2017 11:06:45
[2017-01-19] MEDS: METOPROLOL SUCCINATE XR 50 MG TAB PO SCH (08:41)
[2017-01-19] MEDS: AMIODARONE HCL 200 MG TAB PO SCH (08:43)
[2017-01-19] MEDS: ASPIRIN EC 81 MG TAB PO SCH (08:48)
[2017-01-19] MEDS: FUROSEMIDE 40 MG TAB PO SCH ×2 (08:51→14:36)
[2017-01-19] MEDS: SPIRONOLACTONE 25 MG TAB PO SCH (08:52)
--- NOTE | 2017-01-19 12:01 | HOSPPROG ---
Hospitalist Progress Note Assessment/Plan: first encounter with this patient 61-year-old with a history of coronary artery disease and ischemic cardiomyopathy is admitted with 3 days of exertional sharp chest pain. Still with intermittent chest pain concerning for ischemia. He is schedule for angiogram this morning. # chest pain: Concerning for ischemia given past medical history. Patient to be seen by Cardiology and plan for angiogram today #. AFib/VT. Status post pacemaker placement and AICD. Stable, tele reviewed # Elevated INR, s/p Vitamin K. INR this morning 1.46, ok for angiogram #. hyperlipemia # Hx of ischemic cardiomyopathy Plan: Angiogram today. Await results Subjective: NPO. Awaiting angiogram this morning. No CP currently. Had CP last night. Objective: Vital Signs Temp Pulse Resp BP Pulse Ox 36.4 C 70 18 97/70 L 97 01/19/17 11:25 01/19/17 11:25 01/19/17 11:25 01/19/17 11:25 01/19/17 11:25 Laboratory Results 01/19/17 04:07 01/19/17 04:07 01/18/17 01/19/17 01/20/17 05:59 05:59 05:59 Intake Total 1950 800 Output Total 525 400 Balance 1950 275 -400 PT 17.7 SEC (12.0-15.0) H D 01/19/17 04:07 INR 1.46 (0.83-1.16) H 01/19/17 04:07 - Physical Exam Constitutional: no apparent distress, appears nourished Eyes: PERRL Ears, Nose, Mouth, Throat: moist mucous membranes, hearing normal Cardiovascular: regular rate and rhythym Respiratory: no respiratory distress Gastrointestinal: normoactive bowel sounds Genitourinary: no bladder fullness Skin: warm Musculoskeletal: full muscle strength Neurologic: AAOx3 Psychiatric: interacting appropriately, not anxious, not encephalopathic ICD10 Worksheet Patient Problems: Problems Problem Status Onset Atrial fibrillation Acute Congestive heart failure Acute A-fib Acute Cardiomyopathy Acute Chest pain Acute
--- NOTE | 2017-01-19 12:56 | PDHPUP ---
History & Physical Update H&P update statement: This history and physical update is based on an assessment of the patient which was completed after admission or registration (within 24 hours), but prior to the surgery/procedure. H&P update: H&P reviewed & patient examined, no change in patient's condition since H&P completed
--- NOTE | 2017-01-19 12:57 | PDPROPOC ---
Sedation Plan of Care Sedation Plan of Care: vital signs stable, mental status noted, patient educated of risks, benefits, alternatives, patient can tolerate sedation ASA Classification: ASA 2 Planned drugs: fentanyl, midazolam Mallampati Score: Class 2 Mallampati Reference Image: Patient passed 3-3-2 rule?: Yes
[2017-01-19] MEDS ORDERED: LIDOCAINE 1% 300 MG/30 ML SDV ONE (13:03)
[2017-01-19] MEDS ORDERED: MIDAZOLAM 2 MG/2 ML VIAL ONE (13:03)
[2017-01-19] MEDS ORDERED: fentaNYL 100 MCG/2 ML INJ ONE (13:03)
[2017-01-19] MEDS ORDERED: IOPAMIDOL (ISOVUE-370) 150 ML BTL IV ONE ×2 (13:04→13:50)
[2017-01-19] MEDS ORDERED: FUROSEMIDE 20 MG/2 ML VIAL ONE (14:02)
[2017-01-19] MEDS ORDERED: ATROPINE SULFATE 1 MG/10 ML SYR IVP PRN (14:18)
--- NOTE | 2017-01-19 16:14 | ASMTCMCOM ---
CM Note CM Note Notes: 01/19/2017 Case Management Note: Case Management d/c poc remains home with family support when medically stable with follow up as directed. Case Management available if needs change. 01/17/2017 Case Management Note: CM Note Reviewed chart and discussed w/RN. Pt lives at home w/. He has been screened by [facility] and jesse submitted for [facility]astity Lam. Anticipate dc home w/ when medically stable. Date Signed: 01/19/2017 04:14 PM Electronically Signed By:Kary Ramos RN
[2017-01-19] MEDS ORDERED: FUROSEMIDE 40 MG/4 ML VIAL IVP ONE ×2 (18:00)
[2017-01-19] MEDS: ATORVASTATIN CALCIUM 40 MG TAB PO SCH (18:02)
--- NOTE | 2017-01-19 20:52 | CPIP ---
[f rep st] INVASIVE CARDIAC PROCEDURE DATE OF PROCEDURE: 01/16/2017 PROCEDURE PERFORMED: 1. Coronary angiography. 2. Left ventriculography. INDICATION: 1. Known coronary artery disease, status post stenting of left anterior descending coronary artery. 2. Congestive heart failure. 3. Chest pain syndrome concerning for an acute coronary syndrome. ACCESS: Patient was prepped and draped in sterile fashion. 1% lidocaine was used to anesthetize the right inguinal region. A 6-Citizen Of [place] introducer sheath was placed selectively into the right common fe moral artery via modified Seldinger technique. CORONARY ANGIOGRAPHY: A 6-Citizen [place] JL3.5 catheter was advanced to the left main coronary artery and im ages obtained. The left main coronary artery trifurcated into an LAD, ramus, and circumflex coronary arteries. The left main coronary artery appeared normal. The left anterior descending coronary art alyssa was previously stented in the proximal segment. The previously placed stent was widely patent wi th no evidence of significant in-stent restenosis. The remainder of the left anterior descending cor onary artery was free of any significant disease. The ramus coronary artery was a large vessel. The ramus coronary artery appeared normal. The circumflex coronary artery was a large vessel but was no ndominant. Circumflex coronary artery and its complement of OM branches appeared normal. A 6-[place]izen [place] JR4 was advanced to the right coronary artery and images obtained. The right coronary artery was do minant. The right coronary artery appeared normal. LEFT VENTRICULOGRAPHY: A 6-Citizen [place] pigtail catheter was advanced in the left ventricle and images obt ained. The left ventricle was dilated in size with reduced systolic function. Estimated ejection fr action was 10% to 15%. The left ventricular end-diastolic pressure was elevated at 32 mmHg. COMPLICATIONS: None. CONCLUSIONS: 1. Patent left anterior descending stent. 2. No obstructive coronary artery disease. 3. Severely reduced left ventricular systolic function with an estimated ejection fraction of 10% to 15%. /[id number]/MODL
[2017-01-20 04:34] LABS: % IMMATURE GRANULYOCYTES 1.4 % (0.0-1.1); ABSOLUTE IMMATURE GRANULOCYTES 0.09 10^3/uL (0.00-0.10); ADD DIFF? NO; ADD MORPH? NO; ADD SCAN? NO; ATYPICAL LYMPHOCYTE FLAG 0 (0-99); FRAGMENT RBC FLAG 0 (0-99); HEMATOCRIT 42.3 % (40.0-51.0); HEMOGLOBIN 14.4 g/dL (13.7-17.5); LEFT SHIFT FLG 10 (0-99); LIPEMIA HEMOLYSIS FLAG 90 (0-99); MEAN CELL HEMOGLOBIN 31.8 pg (27.9-34.1); MEAN CELL VOLUME 93.4 fL (81.5-99.8); MEAN PLATELET VOLUME 10.4 fL (8.7-11.7); PLATELET CLUMPS FLAG 10 (0-99); PLATELET COUNT 166 10^3/uL (150-400); RED BLOOD CELL COUNT 4.53 10^6/uL (4.40-6.38); RED CELL DISTRIBUTION WIDTH 13.5 % (11.5-15.2)
[2017-01-20 04:44] LABS: ANION GAP 10 mEq/L (8-16); CALCIUM 8.6 mg/dL (8.5-10.4); CARBON DIOXIDE 29 mEq/l (22-31); CHLORIDE 96 mEq/L (97-110); GLOMERULAR FILTRATION RATE > 60; GLUCOSE 91 mg/dL (70-100); POTASSIUM 4.2 mEq/L (3.5-5.2); SODIUM 135 mEq/L (134-144)
[2017-01-20] MEDS: AMIODARONE HCL 200 MG TAB PO SCH (08:41)
[2017-01-20] MEDS: METOPROLOL SUCCINATE XR 50 MG TAB PO SCH (08:42)
[2017-01-20] MEDS: ASPIRIN EC 81 MG TAB PO SCH (08:42)
[2017-01-20] MEDS: FUROSEMIDE 40 MG TAB PO SCH (08:42)
[2017-01-20] MEDS: SPIRONOLACTONE 25 MG TAB PO SCH (08:44)
[2017-01-20 11:40] VITALS: PULSE 71; RESP 16; TEMP 97.7; O2SAT 97
[2017-01-20 11:41] VITALS: BP 111/66
[2017-01-20] MEDS ORDERED: WARFARIN SODIUM 5 MG TAB PO SCH (12:00)
--- NOTE | 2017-01-20 12:16 | SOAPPROG ---
ERNIE Progress Note Assessment/Plan: Assessment: 61 y/o man with CAD s/p CO and LAD PCI 2008 with acute on chronic ischemic systolic CHF with LVEF 17%, BIVAICD and PAF. He appears still moderately hypervolemic. I meet him initially in Feb 2016 and recommended heart transplant evaluation but with his uninsured status and illegal alienship not candidate for DT-VAD or OHT. I meet with him now with RN and [employer] translators and told him I do not think we can do much more CHF medicine anderson as BP and CO/CI tenuously low. I think his prognosis is < six months and pt should consider entering home hospice. I think the CP and shortness episodes are related to low CI and will continue despite best CHF treatment. REC: 1)increase Lasix to 60mg PO BID 2)start KCL 20meq PO qam. 3)rest of meds without changes. 4)okay to discharge home later today. 5)my office will arrange home hospice company in his [place] with [place] speaking staff to come meet Mr. Whitman and his family in next 5-7 days. 6)f/u [facility] 10 days. Time spent with pt today 45 minutes. 01/20/17 12:12 Subjective: no complaints today. Denies CP, PND, palpitations or syncope. Objective: Vital Signs Temp Pulse Resp BP Pulse Ox 36.5 C 71 16 111/66 97 01/20/17 11:37 01/20/17 11:37 01/20/17 11:37 01/20/17 11:37 01/20/17 11:37 Laboratory Results 01/20/17 03:28 01/20/17 03:28 01/19/17 01/20/17 01/21/17 05:59 05:59 05:59 Intake Total 800 800 Output Total 525 2500 Balance 275 -1700 PT 17.7 SEC (12.0-15.0) H D 01/19/17 04:07 INR 1.46 (0.83-1.16) H 01/19/17 04:07 Physical Exam - Physical Exam General Appearance: alert EENT: normal ENT inspection Neck: full range of motion Respiratory: lungs clear Cardiac/Chest: regular rate, rhythm, gallop, JVD, systolic murmur Peripheral Pulses: 2+: carotid (R), carotid (L), femoral (R), femoral (L), dorsalis-pedis (R), dorsalis-pedis (L) Abdomen: non-tender, No rebound, No ascites Skin: warm/dry Extremities: No pedal edema Neuro/Psych: alert ICD10 Worksheet Patient Problems: Problems Problem Status Onset Atrial fibrillation Acute Congestive heart failure Acute A-fib Acute Cardiomyopathy Acute Chest pain Acute
[2017-01-20] MEDS ORDERED: POTASSIUM CL 20 MEQ/15 ML UDCUP PO SCH (12:30)
--- NOTE | 2017-01-20 12:55 | PDDCSUM ---
Discharge Summary Discharge Summary: HPI/Hospital Course 61-year-old with a history of coronary artery disease and ischemic cardiomyopathy is admitted with 3 days of exertional sharp chest pain. Angiogram did not show Obstruction, no stents were placed. EF is still very low at 10-15%. He is euvolemic at discharge. He has some SIMS but otherwise at baseline Unfortunately, the pt's has end stage CHF and home hospice will be set up by cardiology in about 5-7 days. He likely has less than 6 months to live. Lasix has been increased to 60mg BID. All other meds have not been changed including BB, BARBARA-I, statin, K sparring diuretic. Warfarin has been restarted DDX: # chest pain: #. AFib/VT. Status post pacemaker placement and AICD. Stable, tele reviewed # Elevated INR, s/p Vitamin K. Coumadin to be restarted #. hyperlipemia # Hx of ischemic cardiomyopathy Exam: VS ON 2lO2 NAD AAOX3 RRR CTAB S/NT/ND NO EDEMA SKIN WARM D/C MEDS: SEE MED REC F/U: PER ABOVE TOTAL TIME SPENT ON DISCHARGE IS 35 MINS
--- NOTE | 2017-01-20 13:33 | ASMTCMCOM ---
CM Note CM Note Notes: Pt spoke w/ Dr. Griffin and Dr. Oconnell regarding d/c POC. Dr. Griffin office will set up home hospice in [place]. Pt is being discharged today. Pt was informed by Dr. Griffin that he has 6-12 months to live. CM to available for changes. Date Signed: 01/20/2017 01:32 PM Electronically Signed By:TOMMY Stroud
[2017-01-20] MEDS ORDERED: FUROSEMIDE 80 MG TAB PO SCH (15:00)
[2017-01-20] MEDS ORDERED: FUROSEMIDE 40 MG TAB PO SCH (15:00)
--- NOTE | 2017-01-20 15:54 | ASDISCHSUM ---
Discharge Information Plan Status:Hospice-Home Medically Cleared to Leave:01/19/2017 Discharge Date:01/20/2017 03:08 PM CM D/C Disposition: ADT D/C Disposition:Home, Routine, Self-Care Projected Discharge Date:01/20/2017 12:00 AM Transportation at D/C: Discharge Delay Reason: Follow-Up Date:01/20/2017 12:00 AM Discharge Slot: Final Diagnosis: Placement Information Patient Contact Information Contact Name:TERRELL Relationship: Address: Work Phone: City: [facility] Phone: State/[employer] Code: Email: Financial Information Financial Class:Self-Pay Primary Plan Desc:SELF PAY Primary Plan Number: Secondary Plan Desc: Secondary Plan Number: Assessment Information [facility] CM Progress Note CM Note CM Note Notes: Reviewed chart and discussed w/RN. Pt lives at home w/. He has been screened by [employer] and jesse submitted for [employer]. Anticipate dc home w/ when medically stable. Date Signed: 01/17/2017 10:42 AM Electronically Signed By:Cammy Fontenot RN [facility] CM Progress Note CM Note CM Note Notes: 01/19/2017 Case Management Note: Case Management d/c poc remains home with family support when medically stable with follow up as directed. Case Management available if needs change. 01/17/2017 Case Management Note: CM Note Reviewed chart and discussed w/RN. Pt lives at home w/. He has been screened by [facility] and jesse submitted for [facility]. Anticipate dc home w/ when medically stable. Date Signed: 01/19/2017 04:14 PM Electronically Signed By:Kary Ramos RN [facility] CM Progress Note CM Note CM Note Notes: Pt spoke w/ Dr. Griffin and Dr. Oconnell regarding d/c POC. Dr. Griffin office will set up home hospice in malagasy. Pt is being discharged today. Pt was informed by Dr. Griffin that he has 6-12 months to live. CM to available for changes. Date Signed: 01/20/2017 01:32 PM Electronically Signed By:TOMMY Stroud Intervention Information
== END 2017-01-20 15:08 | disposition home or self-care (01) | DRG 287 ==
LOC: F2W 19:40
PROVIDERS: ADMIT Hospitalist; ATTEND Hospitalist
DX: I11.0 Hypertensive heart disease with heart failure (principal); I50.23 Acute on chronic systolic (congestive) heart failure; I25.5 Ischemic cardiomyopathy; E78.5 Hyperlipidemia, unspecified; I25.2 Old myocardial infarction; I25.10 Atherosclerotic heart disease of native coronary artery without angina pectoris; I48.0 Paroxysmal atrial fibrillation; Z95.5 Presence of coronary angioplasty implant and graft; Z95.810 Presence of automatic (implantable) cardiac defibrillator
CPT/HCPCS: C1760; J1644; J1940; J2250; J3010; Q9957; Q9967

== ENCOUNTER 2017-07-19 09:15 | Inpatient (IN) | payer SELFPAY ==
[2017-07-19] MEDS ORDERED: ONDANSETRON DISINTEGRATING 4 MG TAB PO PRN (10:58)
[2017-07-19] MEDS ORDERED: ONDANSETRON 4 MG/2 ML VIAL IVP PRN (10:58)
--- NOTE | 2017-07-19 11:15 | CPEKG ---
Heart Rate: 70 RR Interval: 857 P-R Interval: 120 QRSD Interval: 198 QT Interval: 380 QTC Interval: 410 P [place]: 0 QRS [place]: 0 EKG Severity - ABNORMAL ECG - EKG Impression: A-V DUAL-PACED RHYTHM WITH SOME INHIBITION Electronically Signed By: Angel Luis Ellington 20-Jul-2017 08:42:43
[2017-07-19 12:19] LABS: PLATELET COUNT 183 10^3/uL (150-400)
[2017-07-19 12:32] LABS: INR 2.19 (0.83-1.16); PROTIME(PATIENT) 24.4 SEC (12.0-15.0)
[2017-07-19] MEDS ORDERED: ALTEPLASE 2 MG VIAL IVP PRN (13:32)
--- NOTE | 2017-07-19 14:26 | GHP ---
[f rep st] HISTORY AND PHYSICAL DATE OF ADMISSION: 07/19/2017 CHIEF COMPLAINT: Increased shortness of breath with occasional midsternal chest pressure, with weight gain over the last week. HISTORY OF PRESENT ILLNESS: The patient is a Danish-speaking only patient. He is seen with professional elementary principal. He has been known to our practice, with significant past history that includes myocardial infarction with PCI to the LAD in 2008, ischemic cardiomyopathy, dyslipidemia, remote Bi-V AICD implantation, history of paroxysmal atrial fibrillation with last cardioversion in September of 2016, chronic systolic heart failure, nocturnal hypoxemia on overnight O2. Patient reported that he had been in his usual state of health until approximately 2 weeks ago, in which he was noted to have elevated creatinine level. His metolazone had been discontinued. He reports over the last week, he has noted weight gain, and has not noticed significant peripheral edema, but does report abdominal bloating. He says he has gained approximately 4 pounds in the last week. He has recently had laboratory studies drawn at his PCP's office yesterday, showing a significant elevation of BUN to 59 and creatinine at 2.26. He informs me today that he feels that he can only walk 10 feet, in which he developed significant shortness of breath. He does report midsternal chest pressure with no radiation. These symptoms usually subside within 2-3 minutes of resting. He reports he has had no significant episodes of palpitations, denies of any orthopnea, PND, edema, near-syncope, or syncopal events. He does feel that he had a hard "hit in the chest" approximately 1 week ago, feeling as if his AICD had delivered therapy. He reports he has had no recent fevers, chills or night sweats. He has not been around anybody sick. He reports he has been compliant with all his medications. With his recent increase in BUN and creatinine, his PCP did notify our office, with recommendations for admission to the hospital for further evaluation of his renal insufficiency and reported chest pressure and shortness of breath. PAST MEDICAL HISTORY: 1. Includes previous MO with PCI of the LAD in 2008. 2. Ischemic cardiomyopathy. 3. Chronic systolic heart failure. 4. Paroxysmal atrial fibrillation. 5. Hypertension. 6. Hyperlipidemia. 7. Nocturnal hypoxia. 8. Borderline renal insufficiency. PAST SURGICAL HISTORY: 1. Includes PCI of the LAD in 2008. 2. Bi-V AICD implantation. FAMILY HISTORY: Notable for a family history of coronary artery disease, reporting multiple family members with history of MIs. SOCIAL HISTORY: Patient is currently not working due to his health problems. He has never used tobacco. Reports occasional alcohol use. Denies any illicit drug use. ALLERGIES: Patient has no known drug allergies. MEDICATIONS: At home include: Allopurinol 100 mg p.o. daily, Zantac 150 mg p.o. h.s., potassium chloride 20 mEq p.o. daily, metoprolol succinate 50 mg p.o. daily, lisinopril 5 mg p.o. daily, Lasix 80 mg p.o. daily, aspirin 81 mg p.o. daily, amiodarone 200 mg p.o. daily, Aldactone 25 mg p.o. daily, simvastatin 80 mg p.o. daily, warfarin 5 mg p.o. daily. REVIEW OF SYSTEMS: A 10-point review of systems done on this patient all negative, as except as mentioned above. PHYSICAL EXAMINATION: GENERAL APPEARANCE: Short-statured, mildly obese, male. He is alert and oriented to person, place, time, and situation. He appears to be in no acute distress at the time of my examination. VITAL SIGNS: Current blood pressure of 90/59, heart rate is 72, electrocardiogram showing AV paced, saturating 90% on room air, respiration rate 18, temperature 36.6 degrees Celsius. HEENT: Head is normocephalic. Lips and tongue are pink and moist with no signs of cyanosis. Conjunctivae pink. NECK: Trachea is midline, +2 carotid pulses bilateral. No auscultated bruits, mild jugular vein elevation 4-5 cm above sternal notch. LUNGS: Diminished in bases bilateral, no rhonchi, rales or wheezing noted. CARDIAC: Regular rate, regular rhythm. S1, S2. A 1 to 2/6 systolic murmur noted along the left sternal border. ABDOMEN: Firm, nontender, no palpable masses, positive bowel sounds x4 quadrants. SKIN: Rives, warm, dry, no cyanosis, no clubbing, no significant peripheral edema. VASCULAR: +2 carotids bilateral, +2 radials bilateral, +1 dorsal pedal and posterior tibial pulses bilateral. CHEST: Pacemaker insertion site, left anterior chest, healed. LABORATORY STUDIES: Drawn today show WBC of 5.48, hemoglobin of 13.7, hematocrit of 39.7, platelet count of 183. INR 2.19. Sodium 136, potassium 4.6 , chloride 95, CO2 is 27, BUN 90, creatinine 2.7, glucose of 90, calcium 9.3, creatinine 2.1, total bilirubin 1.1, AST 34, ALT 28, alkaline phosphate 73, troponin 0.029, proBNP 5120, total protein 8.2, albumin 4.6, TSH 2.80. STUDIES: Electrocardiogram today showing AV paced rhythm. Chest x-ray showing cardiomegaly with mild pulmonary venous hypertension, no pleural effusion, pacemaker without pneumothorax. Patient's most recent cardiac catheterization was done on January 16, 2017, which showed patent left anterior descending artery, no obstructive coronary artery disease, severely reduced LV systolic function with EF estimated between 10% to 15%. Per our office notes, most recent echocardiogram was done on January 18, 2017, showing EF of 10% to 15%. ASSESSMENT AND PLAN: 1. Acute on chronic systolic heart failure: Patient noted to recently be taken off metolazone due to elevated BUN and creatinine. Reporting weight gain and shortness of breath. Patient noted with mild JVD and abdominal bloating, but no significant peripheral edema. At this time, I would like him to undergo echocardiogram for re-evaluation of his left ventricular systolic function and evaluate his pulmonary pressures. With his elevated BUN and creatinine, will hold diuresis at this time. Pending on EF, consideration of starting him on dobutamine. 2. Chest pressure: Patient reporting episodes of mild midsternal chest pressure. He has had a coronary angiogram done less than 7 months ago, showing patent left anterior descending stent with no flow limiting disease. Current laboratory studies showing a negative troponin of 0.029. Again will repeat echocardiogram as above to re-evaluate left ventricular function. We will plan on continuing him on antiplatelet therapy of aspirin. Will cycle troponin levels. 3. Renal insufficiency: BUN is noted to be 90 today with creatinine at 2.7. The patient recently had his metolazone discontinued. Potentially also caused by inadequate perfusion due to low ejection fraction. Will hold diuretics and ACEi at this time. After echocardiogram, will ask for Nephrology consultation. 4. History of ventricular tachycardia: Patient with automated implantable cardioverter-defibrillator implantation, does report potentially having a shock last week by the device. Have asked the [employer] commissary representative to come in and interrogate the device. Will continue on home dose of amiodarone. Continuous cardiac monitoring. Potassium within normal limits. Magnesium in a.m. 5. Hyper dyslipidemia: Continue patient on current dose of statin therapy. 6. Nocturnal hypoxemia: Continue patient on oxygen therapy at night. 7. History of gout: Patient will continue on home dose of allopurinol. 8. Paroxysmal atrial fibrillation: Patient is currently atrioventricular paced , and pacemaker interrogation as mentioned above. Continue on home dosage of amiodarone. Will hold metoprolol due to hypotension at this time. Continue patient on warfarin. 9. Deep venous thrombosis prophylaxis: Patient is on warfarin as mentioned above. 10. Code status: The patient is a full code. /[id number]/MODL MTDD
--- NOTE | 2017-07-19 15:16 | ECHO ---
[email or web address] [address] [address] Main: [phone] Fax: Transthoracic Echocardiogram Name: ZOEY BANG MR#: [id number] Study Date: 07/19/2017 Study Time: 12:13 PM Date of : 1955 Age: 61 year(s) Height: 165.1 cm (65 in.) Weight: 85.7 kg (188.94 lb.) BSA: 1.93 m2 Gender: Male Examination: Echo Indication: CHF, AICD, Known Cardiomyopathy Image Quality: Contrast: Requested by: Jerman Valera BP: 90 mmHg/59 mmHg Heart Rate: Rhythm: Normal sinus rhythm Indication: CHF, AICD, Known Cardiomyopathy Procedure Staff [employer] Assessment: Oswaldo Asif RDCS Reading Physician: Vinny Siddiqi MD Requesting Provider: Conclusions: Severely dilated left ventricle. Severely reduced systolic LV function. EF is 10 %. The left atrium is severely dilated. The mitral valve is normal in appearance. Moderate mitral valve regurgitation is present. The aortic valve is tri-leaflet and functions normally. When compared to the 01/18/17 study. There is no significant change. Measurements: Chambers Valvular Assessment AV/MV Valvular Assessment TV/PV Normal Normal Normal Name Value Range Name Value Range Name Value Range Ao Aranza (MM): 2.8 cm (2.2 cm-3.7 AV meanP mmHg ( - ) TR Vmax: 2.52 mm/s ( - ) cm) ROSE (VTI): 1.4 cm ( - ) TR PGmax: 25 mmHg ( - ) IVSd (2D): 0.6 cm (0.6 cm-1.1 MV E Vmax: 0.37 m/s ( - ) syst. PAP: 35 mmHg ( - ) cm) MV A Vmax: 0.50 m/s ( - ) PV Vmax: 0.62 m/s (0.6 m/s-0.9 LVDd (2D): 8.3 cm (4.2 cm-5.9 MV E/A: 0.74 ( - ) m/s) cm) MV meanP mmHg ( - ) PV PGmax: 2 mmHg ( - ) LVDs (2D): 7.8 cm (2.1 cm-4 cm) MVA (Vmax): 2.2 m/s ( - ) LVPWd (2D): 1.0 cm (0.6 cm-1 cm) LVOTd 2.1 cm 2.1 cm mm LVEF (BP): 10 % (>=55 %) Continued Measurements: Chambers Valvular Assessment AV/MV Valvular Assessment TV/PV Name Value Name Value Name Value Patient: ZOEY BANG Study Date: 07/19/2017 Page 1 of 2 12:13 PM LADs: 6.3 cm MV Annulus: 5.5 cm CVP (est.): 10 mmHg LADs Lon.8 cm MV E' Septal: 0.03 m/s LA Area: 49.9 cm2 MV E/E' Septal: 10.90 LA Volume: 211 ml MV VTI: 14.30 cm LA Volume Index: 109.3 ml/m2 MR ERO: 0.080 cm2 MR PISA radius: 6 mm MR Reg. Volume: 12 ml MR Reg. Fraction: 4 % Findings: Left Ventricle: Severely dilated left ventricle. Severely reduced systolic LV function. EF is 10 %. Diastolic dysfunction is present. . There is severe global hypokinesis with a EF estimated at 10%. Right Ventricle: Normal size right ventricle. There is no ICD lead noted in the right ventricle. Left Atrium: The left atrium is severely dilated. Right Atrium: The right atrium is mildly dilated. Mitral Valve: The mitral valve is normal in appearance. Moderate mitral valve regurgitation is present. Aortic Valve: The aortic valve is tri-leaflet and functions normally. There is no aortic valve regurgitation. Tricuspid Valve: The tricuspid valve appears normal. Trivial tricuspid valve regurgitation. The pulmonary artery pressure is normal. Pulmonic Valve: The pulmonic valve is normal in appearance and function. There is no pulmonic regurgitation seen. Aorta: The aorta is normal. Pericardium: No pericardial effusion. Exam Comments: This patient has a ischemic cardiomyopathy.. (No Signature Object) Patient: ZOEY BANG Study Date: 07/19/2017 Page 2 of 2 12:13 PM [id number]
[2017-07-19] MEDS ORDERED: FUROSEMIDE 40 MG/4 ML VIAL IVP ONE (15:24)
[2017-07-19] MEDS ORDERED: DOBUTamine/DEXTROSE 250 ML IV SCH (15:30)
[2017-07-19] MEDS: DOBUTamine 500 MG in D5W 250 ML IV SCH (17:40)
--- NOTE | 2017-07-19 19:18 | GCON ---
[f rep st] CONSULTATION NEPHROLOGY CONSULTATION DATE OF CONSULTATION: 07/19/2017 REASON FOR CONSULTATION: Acute kidney injury in the setting of ischemic cardiomyopathy. HISTORY OF PRESENT ILLNESS: This is a pleasant 61-year-old male with a past medical history signific ant for an ischemic cardiomyopathy with ejection fraction 10% to 15%, who now presents with acute ris e in his creatinine. History is obtained from the patient through a hospital automotive parts interpreter. He appear s to be a good historian. Additional history is obtained per the Cardiology Service. The patient has a normal baseline creatinine. Approximately 2 weeks ago, the patient began developin g worsening chest burning on exertion. He also noted some worsening exercise tolerance. Laboratory studies were performed and his creatinine was noted to be showing elevated. Because of this, his met olazone was discontinued. Following that time, he developed some weight gain, although he did not can ve peripheral edema. He denies shortness of breath at rest. The patient denies any other recent new issues. He feels that his food and food intake have been sta ble. He has not had other medication changes. He does have to urinate 3 times at night, but this can s not changed. He does not take nonsteroidal medications. I cannot identify any other toxic insult to his kidneys. The patient is now admitted for presumed worsening systolic heart failure. He has been started on a dobutamine drip. We are now asked to comment relating to his worsened creatinine level. Of note, th e patient typically runs systolic blood pressures of around 90. PAST MEDICAL HISTORY: 1. History of coronary artery disease, status post myocardial infarction and previous stenting. 2. Ischemic cardiomyopathy with ejection fraction 10% to 15%. 3. History of paroxysmal atrial fibrillation. 4. Past history of hypertension, now with low blood pressures. 5. Hyperlipidemia. 6. Nocturnal hypoxemia. 7. History of borderline renal insufficiency. 8. Gout. SURGICAL HISTORY: 1. Percutaneous stenting of LAD. 2. BiV AICD. FAMILY HISTORY: Positive for coronary artery disease. HOME MEDICATIONS: Allopurinol 100 mg daily, Zantac 150 mg q.h.s., potassium chloride 20 mEq daily, m etoprolol succinate 50 mg daily, lisinopril 5 mg daily, Lasix daily, aspirin 81 mg daily, amiodarone 200 mg daily, Aldactone 25 mg daily, simvastatin 80 mg daily, warfarin 5 mg daily. ALLERGIES: No known allergies. SOCIAL HISTORY: The patient is disabled. He does not have a history of tobacco or alcohol use. REVIEW OF SYSTEMS: He denies fevers, chills, headaches, or rhinitis. He has had some occasional vis ual disturbances associated with his chest pain. He has shortness of breath with exertion but not at rest. He has the aforementioned angina during exertion, but not at rest. He denies abdominal pain, constipation or diarrhea. He has to urinate 3 times at night. He has not had lower extremity edema . PHYSICAL EXAM: GENERAL: At time of exam, the patient is appropriate and alert. VITAL SIGNS: Cable rature afebrile, pulse 71, blood pressure 96/62. HEENT: Eyes: Sclerae clear. Oropharynx clear wit h false upper plates. NECK: No lymphadenopathy or thyromegaly. LUNGS: Clear to auscultation bilat erally. CARDIOVASCULAR: Regular rhythm without gallops or rubs. ABDOMEN: Nontender, no organomega ly. /RECTAL: Deferred. EXTREMITIES: No lower extremity edema. INTEGUMENT: Generally clear. N EURO: No focal findings. LABORATORY STUDIES: White count 5.4, hematocrit 39.7, platelets 183. Sodium 136, potassium 4.6, bic arb 27, BUN 90, creatinine 2.7. BNP 5120. IMPRESSION AND PLAN: Acute kidney injury in the setting of systolic heart failure. This appears mos t likely to be cardiorenal. This is unfortunate, as it likely represents a worsening of his already severe cardiac function. The patient is on low-dose angiotensin-converting enzyme inhibitor, and thi s is being held appropriately. He is receiving dobutamine, and this is likely the appropriate therap y. The patient does not appear grossly fluid overloaded. He is lying flat in bed at the present hamlet e. At this point, I would consider allowing him to gain some additional volume, while the dobutamine is being infused. In addition, the patient may not tolerate lisinopril in the future, and we may ne ed to try to use hydralazine in its place. We will go ahead and perform a renal ultrasound, to ensur e he does not have any obstruction that could be driving the process from a renal standpoint. Again, I did not identify any nephrotoxic issues. Thank you for allowing us to participate in this gentleman's care. We will continue following closel y with you. /[id number]/MODL
[2017-07-19] MEDS ORDERED: NON-FORMULARY NEW DRUG (Ranitidine Hcl [Zantac] 150 MG) PO SCH (21:00)
[2017-07-19] MEDS: FAMOTIDINE 20 MG TAB PO SCH (21:45)
[2017-07-20 05:45] LABS: INR 2.43 (0.83-1.16); PROTIME(PATIENT) 26.4 SEC (12.0-15.0)
[2017-07-20] MEDS: ASPIRIN EC 81 MG TAB PO SCH (08:38)
[2017-07-20] MEDS: ATORVASTATIN CALCIUM 40 MG TAB PO SCH (08:38)
[2017-07-20] MEDS: WARFARIN SODIUM 5 MG TAB PO SCH (08:38)
[2017-07-20] MEDS: ALLOPURINOL 100 MG TAB PO SCH (08:38)
[2017-07-20] MEDS: AMIODARONE HCL 200 MG TAB PO SCH (08:38)
[2017-07-20] MEDS ORDERED: AMIODARONE HCL 200 MG PO SCH (09:00)
[2017-07-20] MEDS ORDERED: NON-FORMULARY NEW DRUG (Simvastatin [Zocor] 80 MG) PO SCH (09:00)
--- NOTE | 2017-07-20 09:50 | SOAPPROG ---
ERNIE Progress Note Assessment/Plan: Assessment: Patient looks better today. 1. Cardiorenal UA pending, US ok. Cr improving with dobutamine and diuresis. Pt's picture is interesting in that he really does not show his excess volume on exam, and he has no orthopnea. However, as reviewed with cards, he tends to show decompensation from a cardiac output standpoint. Cr is improving. I've identified no primary renal issues. On DC, it may be best this time to dc on hydralazine vs ACEI. Plan: 07/20/17 09:47 Subjective: No complaints Objective: Vital Signs Temp Pulse Resp BP Pulse Ox 36.7 C 70 19 84/39 L 99 07/20/17 08:00 07/20/17 08:00 07/20/17 08:00 07/20/17 08:00 07/20/17 08:00 Laboratory Results 07/19/17 12:00 07/20/17 05:20 07/19/17 07/20/17 07/21/17 05:59 05:59 05:59 Intake Total 930 Output Total 1925 450 Balance -995 -450 PT 26.4 SEC (12.0-15.0) H 07/20/17 05:20 INR 2.43 (0.83-1.16) H 07/20/17 05:20 Physical Exam - Physical Exam General Appearance: no apparent distress Respiratory: lungs clear Cardiac/Chest: regular rate, rhythm Extremities: normal inspection Neuro/Psych: oriented x 3 ICD10 Worksheet Patient Problems: Problems Problem Status Onset A-fib Acute Atrial fibrillation Acute Cardiomyopathy Acute Chest pain Acute Congestive heart failure Acute
[2017-07-20] MEDS: DOBUTamine 500 MG in D5W 250 ML IV SCH (10:29)
--- NOTE | 2017-07-20 11:27 | PDMN ---
Medical Necessity Medical necessity: MCG M190 Heart failure A-2 days: SOB, wt gain, abd bloating, elevated BUN, Cr. Chest pressure, in pt with sig. cardiac hx. further monitoring, eval and tx needed anticipate > 2 midnights
--- NOTE | 2017-07-20 12:17 | GCON ---
[f rep st] CONSULTATION INFORMATION SECURITY ANALYST CONSULTATION REASON FOR ADMISSION: Congestive heart failure with severe cardiomyopathy. HISTORY OF PRESENT ILLNESS: The patient is a very pleasant 61-year-old male with a past med ical history including mild renal insufficiency, hyperlipidemia, atrial fibrillation, severe ischemic cardiomyopathy, coronary artery disease with an NM, hypertension and nocturnal hypoxia. Approximate ly 2 weeks prior to admission, he was noted at that time to have an elevated creatinine level. He be dori having weight gain as well as breathlessness, and also had some dyspnea upon exertion. He was ad mitted to the hospital. Echocardiogram revealed ejection fraction of approximately 10%. He was begun on dobutamine and dopam ine will be started shortly. Currently, he is resting comfortably and feels markedly improved. He denies any cough or productive sputum. There is no fever or night sweats. PAST MEDICAL HISTORY: Significant for NM, cardiomyopathy, atrial fibrillation, hyperlipidemia, hyper tension and renal insufficiency. PAST SURGICAL HISTORY: Has had a PCI of the LAD. He also had an AICD implanted. FAMILY HISTORY: Significant for coronary artery disease. ALLERGIES: No known allergies to medications. SOCIAL HISTORY: No history of tobacco use. Infrequent alcohol use. He has good family support. REVIEW OF SYSTEMS: A 10-point review of system was performed and was negative, except for what was m entioned in HPI. PHYSICAL EXAM: VITAL SIGNS: Blood pressure is 91/45, pulse 73, respirations 22, temperature is 36.7 , oxygen saturation 97% on 2 L. GENERAL: He is a mildly overweight, but very pleasant 61-year-old H ispanic male who is resting comfortably, on supplemental oxygen. HEENT: Eyes WATSON, EOMI. Throat sh ows no erythema or tonsillar hypertrophy. NECK: Supple with no cervical adenopathy. HEART: Regula r rate and rhythm, with a 2/6 systolic murmur heard best at the left sternal border, without radiatio n. LUNGS: Diminished breath sounds, bibasilar crackles, but no wheeze. ABDOMEN: Soft, nontender. Bowel sounds are present all 4 quadrants. EXTREMITIES: No clubbing or cyanosis. Trace lower extre mity edema. LABORATORIES: White count is 5.4, hemoglobin 13, hematocrit 39, platelet count is 183. INR is 2.43. Sodium 138, potassium 4.4, chloride 96, CO2 is 29, BUN is 81, creatinine is 2.3. These are down fr om yesterday's. IMAGING: Chest x-ray dated 07/19/2017 reveals cardiomegaly and some evidence of pulmonary edema. IMPRESSION: 1. Severe cardiomyopathy with ejection fraction of 10%. 2. Coronary artery disease. 3. Acute on chronic renal failure. 4. History of ventricular tachycardia. 5. Hypertension. 6. Hyperlipidemia. RECOMMENDATIONS: 1. The patient is currently on dobutamine. I agree with adding dopamine to this. 2. Agree with Nephrology consult. 3. DVT and PE prophylaxis. 4. Stress ulcer prophylaxis. 5. Ambulation. 6. PT and OT. 7. Out of bed to chair. 8. Close cardiovascular monitoring. Thank you very much. /[id number]/MODL
--- NOTE | 2017-07-20 12:55 | SOAPPROG ---
SOAP Progress Note Assessment/Plan: Assessment: CHF MD hospital follow up note 61 y/o man SSO with following cardiac and medical issues: --CAD s/p LAD PCI 2008 with large anterior [place] --chronic ischemic systolic CHF with LVEF 10% and moderate MR --BIVAICD --PAF --CRI with usual baseline serum creatinine 1.2 Last cardiac cath 01/28 showed patent LAD stent with no new obstructive lesions. Echo 07/19/17 showed LVEF 10%, LVEDD 8.3cm, normal RVEF, moderate MR, mild TR. He has been hospitalized about six times in last two years (04/30, 07/28 , 01/28 and now this one 07/29). He has not insurance and illegal immigration status. I recommended VAD and OHT evaluation when I first meet him in 02/26 but not able to for above reasons. Now on IV DBT and IV Dopamine he feels okay. CP and shortness of breath are gone. He is nauseated but no PND, dizziness, palpitations or angina. He is but has his sons and their families near him but has elected not to tell his family how sick he is. On physical exam, he appears euvolemic and ARF probably from very low CO/CI and recent Metalozone use. REC: 1)continue IV DBT and IV Dopamine for 3-5 days keeping SBP > 95 in hopes of normalizing serum creatinine 2)no beta dominic, ACEI or aldactone for now 3)No IV lasix for now 4)social work program coordinator and financial worker consult to confirm what his insurance and immigration status is. If he has Medicaid and green card, would transfer him ICU to ICU to VAD/OHT center this hospitalization. 5)If does not have option financially of VAD and OHT, palliative care consult to consider hospice once discharged to home next week hopefully. entire visit with patient done with bee producer and KILN HEAD HOUSE OPERATOR present. 07/20/17 12:48 Subjective: feels better than yesterday. Denies CP, rest dyspnea, PND or palpitations or dizziness. Abdominal pain improving. Objective: Vital Signs Temp Pulse Resp BP Pulse Ox 36.6 C 70 19 104/53 L 93 07/20/17 12:00 07/20/17 12:00 07/20/17 12:00 07/20/17 12:00 07/20/17 12:00 Laboratory Results 07/19/17 12:00 07/20/17 05:20 07/19/17 07/20/17 07/21/17 05:59 05:59 05:59 Intake Total 930 Output Total 1925 600 Balance -995 -600 PT 26.4 SEC (12.0-15.0) H 07/20/17 05:20 INR 2.43 (0.83-1.16) H 07/20/17 05:20 Physical Exam - Physical Exam General Appearance: alert EENT: PERRL/EOMI Neck: non-tender Respiratory: lungs clear Cardiac/Chest: regular rate, rhythm, gallop, JVD (JVP to 8cm.), systolic murmur Peripheral Pulses: 2+: carotid (R), carotid (L), femoral (R), femoral (L), dorsalis-pedis (R), dorsalis-pedis (L) Abdomen: normal bowel sounds, non-tender, No distended, No guarding, No rebound Skin: No jaundice Extremities: No pedal edema ICD10 Worksheet Patient Problems: Problems Problem Status Onset A-fib Acute Atrial fibrillation Acute Cardiomyopathy Acute Chest pain Acute Congestive heart failure Acute
[2017-07-20] MEDS: ACETAMINOPHEN 325 MG TAB PO PRN ×2 (15:27→22:33)
[2017-07-20] MEDS: FAMOTIDINE 20 MG TAB PO SCH (20:06)
[2017-07-21 03:56] LABS: INR 2.82 (0.83-1.16); PROTIME(PATIENT) 29.6 SEC (12.0-15.0)
[2017-07-21] MEDS: DOBUTamine 500 MG in D5W 250 ML IV SCH (08:06)
[2017-07-21] MEDS: ATORVASTATIN CALCIUM 40 MG TAB PO SCH (08:07)
[2017-07-21] MEDS: ALLOPURINOL 100 MG TAB PO SCH (08:07)
[2017-07-21] MEDS: ASPIRIN EC 81 MG TAB PO SCH (08:07)
[2017-07-21] MEDS: AMIODARONE HCL 200 MG TAB PO SCH (08:07)
[2017-07-21] MEDS: WARFARIN SODIUM 5 MG TAB PO SCH (08:08)
--- NOTE | 2017-07-21 09:14 | SOAPPROG ---
ERNIE Progress Note Assessment/Plan: Assessment: Patient looks better today. 1. Cardiorenal Cr improving. Course is similar to past hospitalizations. No evidence of primary renal issue. This appears to be cardiorenal. Dr. Griffin note reviewed. Would consider ongoing outpatient therapy with anti aldosterone therapy and hydralazine, avoiding ACEI. We will sign off. Thx Plan: 07/20/17 09:47 07/21/17 09:12 Subjective: Looks better, no complaints Objective: Vital Signs Temp Pulse Resp BP Pulse Ox 36.5 C 76 19 121/71 H 97 07/20/17 20:00 07/21/17 06:00 07/21/17 06:00 07/21/17 06:00 07/21/17 06:00 Laboratory Results 07/19/17 12:00 07/21/17 03:35 07/20/17 07/21/17 07/22/17 05:59 05:59 05:59 Intake Total 930 635 Output Total 1925 2600 Balance -995 -1965 PT 29.6 SEC (12.0-15.0) H 07/21/17 03:35 INR 2.82 (0.83-1.16) H 07/21/17 03:35 Physical Exam - Physical Exam General Appearance: no apparent distress Respiratory: lungs clear Cardiac/Chest: regular rate, rhythm Extremities: normal inspection Neuro/Psych: normal mood/affect, oriented x 3 ICD10 Worksheet Patient Problems: Problems Problem Status Onset A-fib Acute Atrial fibrillation Acute Cardiomyopathy Acute Chest pain Acute Congestive heart failure Acute
--- NOTE | 2017-07-21 09:42 | PDINTPN ---
Grab Driver Progress Note Assessment/Plan: Assessment/plan: * Severe cardiomyopathy-ejection fraction approximately 10%. -continue dobutamine and dopamine drips per Cardiology * Coronary disease * Atrial fibrillation * Hyperlipidemia * Hypertension-blood pressure controlled * Renal insufficiency-creatinine down to 1.5 * PT/OT * Nutrition-adequate Subjective: Sitting up eating breakfast. Comfortable. Objective: Vital Signs Temp Pulse Resp BP Pulse Ox 36.5 C 85 12 99/48 L 93 07/20/17 20:00 07/21/17 08:00 07/21/17 08:00 07/21/17 08:00 07/21/17 08:00 Laboratory Results 07/19/17 12:00 07/21/17 03:35 07/20/17 07/21/17 07/22/17 05:59 05:59 05:59 Intake Total 930 635 Output Total 1925 2600 Balance -995 -1965 PT 29.6 SEC (12.0-15.0) H 07/21/17 03:35 INR 2.82 (0.83-1.16) H 07/21/17 03:35 - Time Spent With Patient Time Spent With Patient: 25 min of time spent with patient, over 1/2 involved with coordination of care or counseling Physical Exam - Physical Exam General Appearance: alert, no apparent distress EENT: PERRL/EOMI, normal ENT inspection Neck: non-tender, full range of motion, supple, normal inspection Respiratory: chest non-tender, lungs clear, normal breath sounds Cardiac/Chest: systolic murmur, irregularly irregular Peripheral Pulses: 2+: carotid (R), carotid (L), femoral (R), femoral (L), dorsalis-pedis (R), dorsalis-pedis (L) Abdomen: normal bowel sounds, non-tender, soft Male Genitalia: deferred Rectal: deferred Skin: normal color, warm/dry Extremities: normal range of motion, non-tender, normal inspection, normal capillary refill Neuro/Psych: alert ICD10 Worksheet Patient Problems: Problems Problem Status Onset A-fib Acute Atrial fibrillation Acute Cardiomyopathy Acute Chest pain Acute Congestive heart failure Acute
--- NOTE | 2017-07-21 11:51 | SOAPPROG ---
SOVALERIO Progress Note Assessment/Plan: Assessment: CHF hospital follow up note 61 y/o man SSO with following cardiac and medical issues: --CAD s/p LAD PCI 2008 with large anterior [place] --chronic ischemic systolic CHF with LVEF 10% and moderate MR --BIVAICD --PAF --CRI with usual baseline serum creatinine 1.2 Last cardiac cath 01/28 showed patent LAD stent with no new obstructive lesions. Echo 07/19/17 showed LVEF 10%, LVEDD 8.3cm, normal RVEF, moderate MR, mild TR. He has been hospitalized about six times in last two years (04/30, 07/28 , 01/28 and now this one 07/29). He has not insurance and illegal immigration status. I recommended VAD and OHT evaluation when I first meet him in 02/26 but not able to for above reasons. Now on IV DBT and IV Dopamine he feels okay. CP and shortness of breath are gone. He is nauseated but no PND, dizziness, palpitations or angina. He is but has his sons and their families near him but has elected not to tell his family how sick he is. On physical exam, he appears euvolemic and ARF probably from very low CO/CI and recent Metalozone use. He is feeling better except for a brief episode of nausea and lightheadedness this AM. I discussed again his case with [facility] and they cannot offer him a VAD and/or OHT without insurance and green card or SSN (none of which he has). We discussed hospice therapy and he is not ready to make any decisions. I discussed with him that we will probably get him home by Tuesday or Tuesday but risk of quickly re-decompensating high and what would he like to do. I suggested to him on previous visits going back to [place] and seeing if he could get a heart transplant or VAD covered there. He is not interested in that. PLAN: 1)no change in current meds. 2)probably attempt to wean off Dopamine gtt tomorrow and DBT gtt over weekend. 3)hopefully out of ICU tuesday or tuesday off IV gtts. 4)no ACEI, BB, aldactone or Lasix for now. entire hospital visit done today with Maintenance Clerk Kianna. Time > 50 minutes. 07/21/17 11:47 Subjective: overall feels better than yesterday with less nausea or CP. One brief 5 minute episode of nausea and lightheadedness this AM. Denies CP, palpitations or rest shortness of breath. Objective: Vital Signs Temp Pulse Resp BP Pulse Ox 36.5 C 74 14 100/70 95 07/20/17 20:00 07/21/17 10:00 07/21/17 10:00 07/21/17 10:00 07/21/17 10:00 Laboratory Results 07/19/17 12:00 07/21/17 03:35 07/20/17 07/21/17 07/22/17 05:59 05:59 05:59 Intake Total 930 635 Output Total 1925 2600 Balance -995 -1965 PT 29.6 SEC (12.0-15.0) H 07/21/17 03:35 INR 2.82 (0.83-1.16) H 07/21/17 03:35 Physical Exam - Physical Exam General Appearance: alert EENT: PERRL/EOMI Neck: non-tender Respiratory: lungs clear Cardiac/Chest: regular rate, rhythm, gallop, systolic murmur, No JVD Peripheral Pulses: 2+: carotid (R), carotid (L), femoral (R), femoral (L), dorsalis-pedis (R), dorsalis-pedis (L) Abdomen: non-tender, No guarding, No rebound Skin: warm/dry Extremities: No pedal edema Neuro/Psych: alert ICD10 Worksheet Patient Problems: Problems Problem Status Onset A-fib Acute Atrial fibrillation Acute Cardiomyopathy Acute Chest pain Acute Congestive heart failure Acute
[2017-07-21] MEDS: ACETAMINOPHEN 325 MG TAB PO PRN ×2 (13:56→20:02)
[2017-07-21] MEDS: FAMOTIDINE 20 MG TAB PO SCH (20:02)
[2017-07-22 04:22] LABS: INR 3.52 (0.83-1.16)
[2017-07-22] MEDS ORDERED: POLYETHYLENE GLYCOL 3350 17 GM PKT PO PRN (08:38)
[2017-07-22] MEDS ORDERED: BISACODYL 10 MG SUPP PR PRN (08:38)
[2017-07-22] MEDS ORDERED: MAGNESIUM HYDROXIDE 30 ML UDCUP PO PRN (08:38)
[2017-07-22] MEDS ORDERED: LACTULOSE 20 GM/30 ML UDCUP PO PRN (08:38)
[2017-07-22] MEDS: AMIODARONE HCL 200 MG TAB PO SCH (09:15)
[2017-07-22] MEDS: SENNOSIDES/DOCUSATE SODIUM TAB PO SCH ×2 (09:15→19:45)
[2017-07-22] MEDS: ASPIRIN EC 81 MG TAB PO SCH (09:16)
[2017-07-22] MEDS: ALLOPURINOL 100 MG TAB PO SCH (09:16)
[2017-07-22] MEDS: ATORVASTATIN CALCIUM 40 MG TAB PO SCH (09:16)
--- NOTE | 2017-07-22 09:30 | PDINTPN ---
Scale Adjuster Progress Note Assessment/Plan: Assessment/plan: * Severe cardiomyopathy-ejection fraction approximately 10%. -continue dobutamine and dopamine drips per Cardiology * Coronary disease * Atrial fibrillation * Hyperlipidemia * Hypertension-blood pressure controlled * Renal insufficiency-creatinine down to 1.5 * PT/OT * Nutrition-adequate * Prognosis is grim long-term Subjective: Sitting up in chair. Comfortable. Complains of occasional headache. Objective: Vital Signs Temp Pulse Resp BP Pulse Ox 36.9 C 75 15 117/76 94 07/22/17 00:00 07/22/17 08:00 07/22/17 08:00 07/22/17 08:00 07/22/17 08:00 Laboratory Results 07/19/17 12:00 07/22/17 03:58 07/21/17 07/22/17 07/23/17 05:59 05:59 05:59 Intake Total 635 1047 Output Total 2600 1250 Balance -1965 -203 PT 35.0 SEC (12.0-15.0) H 07/22/17 03:58 INR 3.52 (0.83-1.16) H 07/22/17 03:58 - Time Spent With Patient Time Spent With Patient: 25 min of time spent with patient, over 1/2 involved with coordination of care or counseling Physical Exam - Physical Exam General Appearance: WD/WN, alert, no apparent distress EENT: PERRL/EOMI, normal ENT inspection, pharynx normal, TMs normal Neck: non-tender, full range of motion, supple, normal inspection Respiratory: chest non-tender, lungs clear, normal breath sounds Cardiac/Chest: regular rate, rhythm, systolic murmur Abdomen: normal bowel sounds, non-tender, soft Male Genitalia: deferred Rectal: deferred Skin: normal color, warm/dry Extremities: normal range of motion, non-tender, normal inspection, normal capillary refill Neuro/Psych: no motor/sensory deficits, alert, normal mood/affect, oriented x 3 ICD10 Worksheet Patient Problems: Problems Problem Status Onset A-fib Acute Atrial fibrillation Acute Cardiomyopathy Acute Chest pain Acute Congestive heart failure Acute
[2017-07-22] MEDS: WARFARIN SODIUM 5 MG TAB PO SCH (10:00)
--- NOTE | 2017-07-22 12:22 | SOAPPROG ---
SOAP Progress Note Assessment/Plan: Assessment: CHF hospital follow up note 61 y/o man SSO with following cardiac and medical issues: --CAD s/p LAD PCI 2008 with large anterior [place] --chronic ischemic systolic CHF with LVEF 10% and moderate MR --BIVAICD --PAF --CRI with usual baseline serum creatinine 1.2 Last cardiac cath 01/28 showed patent LAD stent with no new obstructive lesions. Echo 07/19/17 showed LVEF 10%, LVEDD 8.3cm, normal RVEF, moderate MR, mild TR. He has been hospitalized about six times in last two years (04/30, 07/28 , 01/28 and now this one 07/29). He has not insurance and illegal immigration status. I recommended VAD and OHT evaluation when I first meet him in 02/26 but not able to for above reasons. Now on IV DBT and IV Dopamine he feels okay. CP and shortness of breath are gone. He is nauseated but no PND, dizziness, palpitations or angina. He is but has his sons and their families near him but has elected not to tell his family how sick he is. On physical exam, he appears euvolemic and ARF probably from very low CO/CI and recent Metalozone use. He is feeling better except for a brief episode of nausea and lightheadedness this AM. I discussed again his case with [facility] and they cannot offer him a VAD and/or OHT without insurance and green card or SSN (none of which he has). We discussed hospice therapy and he is not ready to make any decisions. I discussed with him that we will probably get him home by Tuesday or Tuesday but risk of quickly re-decompensating high and what would he like to do. I suggested to him on previous visits going back to [place] and seeing if he could get a heart transplant or VAD covered there. He is not interested in that. Long discussion today about continued poor prognosis. I suggested we have Burmese speaking Palliative care consult this hospitalization. Our family service caseworker has found local hospice company that will care for his pro ezra upon discharge. Will have them meet him Tuesday or Tuesday before planned discharge home and have him enrolled in hospice program upon discharge. I suggested he change to no CPR or intubation and turn off AICD function (but keep pacer function on) at time of discharge early next week. He agreed to all these suggestions. PLAN: 1)wean off IV Dopamine today keeping MAP > 85 2)Lasix 40mg IV x one now 3)hold Coumadin today as INR >3.0 4)hopefully wean off IV dbt tomorrow and to PCU Tuesday 5)Palliative care and hospice consults as described above entire hospital visit done with millinery teacher in room 07/22/17 12:18 Subjective: no complaints today. No more episodes of dizziness and nausea. Denies CP, palpitations or PND. Has not had a bowel movement yet but is having flatus and no abdominal pain. Objective: Vital Signs Temp Pulse Resp BP Pulse Ox 36.9 C 77 18 111/69 92 07/22/17 00:00 07/22/17 10:00 07/22/17 10:00 07/22/17 10:00 07/22/17 10:00 Laboratory Results 07/19/17 12:00 07/22/17 03:58 07/21/17 07/22/17 07/23/17 05:59 05:59 05:59 Intake Total 635 1047 Output Total 2600 1250 Balance -1965 -203 PT 35.0 SEC (12.0-15.0) H 07/22/17 03:58 INR 3.52 (0.83-1.16) H 07/22/17 03:58 Physical Exam - Physical Exam General Appearance: alert EENT: normal ENT inspection Neck: full range of motion Respiratory: crackles, No lungs clear Cardiac/Chest: regular rate, rhythm, gallop, JVD, systolic murmur Peripheral Pulses: 2+: carotid (R), carotid (L), femoral (R), femoral (L), dorsalis-pedis (R), dorsalis-pedis (L) Abdomen: non-tender, No distended, No guarding Skin: warm/dry Extremities: No pedal edema Neuro/Psych: alert ICD10 Worksheet Patient Problems: Problems Problem Status Onset A-fib Acute Atrial fibrillation Acute Cardiomyopathy Acute Chest pain Acute Congestive heart failure Acute
[2017-07-22] MEDS ORDERED: FUROSEMIDE 40 MG/4 ML VIAL IVP ONE (12:23)
--- NOTE | 2017-07-22 12:37 | ASMTCMCOM ---
CM Note CM Note Notes: This is patient's fifth admission in the last year. He has an extensive cardiac history including CAD s/p LAD PCI in 2008, chronic ischemic CHF with LVEF 10%, BIVAICD, and CRI. He is unable to get the VAD and OHT that have been recommended d/t his lack of health insurance coverage. Per cardiology, there is no other recourse, and patient should go home with hospice. I spoke with patient. He understands that his prognosis is grim. He has accepted that he will soon. He does not, however, wish to share with his children the gravity of the situation. He says that his and brother (with whom he lives) know what's going on, but I'm not sure if they've been present for any conversations with physicians. I explained to patient that he needs to consider changing his code status to DNR. I also explained that we could find a hospice agency that may provide pro ezra services. I spoke about the above with Dr Griffin who reiterated this to patient. A palliative care consult has been ordered for Tuesday, and a hospice referral has been sent to . Hopefully, we can coordinate with the above, and include patient's family, and plan for discharge home on Tuesday. Case Mangement will follow. Date Signed: 07/22/2017 12:36 PM Electronically Signed By:Elisa Sierra RN
--- NOTE | 2017-07-22 16:11 | ASMTCMCOM ---
CM Note CM Note Notes: Palliative consult scheduled for TuesdayJuly 25. Patient's to attend. I also spoke with Trever Shi ([phone]) from [facility] who will await our call after the palliative meeting. Date Signed: 07/22/2017 04:10 PM Electronically Signed By:Elisa Sierra RN
[2017-07-22] MEDS: FAMOTIDINE 20 MG TAB PO SCH (19:45)
[2017-07-23] MEDS: DOBUTamine 500 MG in D5W 250 ML IV SCH (01:25)
[2017-07-23 06:59] LABS: INR 3.08 (0.83-1.16); PROTIME(PATIENT) 31.6 SEC (12.0-15.0)
[2017-07-23] MEDS: ALLOPURINOL 100 MG TAB PO SCH (08:47)
[2017-07-23] MEDS: SENNOSIDES/DOCUSATE SODIUM TAB PO SCH ×2 (08:47→21:38)
[2017-07-23] MEDS: AMIODARONE HCL 200 MG TAB PO SCH (08:47)
[2017-07-23] MEDS: ASPIRIN EC 81 MG TAB PO SCH (08:47)
[2017-07-23] MEDS: ATORVASTATIN CALCIUM 40 MG TAB PO SCH (08:47)
--- NOTE | 2017-07-23 09:17 | SOAPPROG ---
SOAP Progress Note Assessment/Plan: Assessment: CHF MD hospital follow up note 61 y/o man SSO with following cardiac and medical issues: --CAD s/p LAD PCI 2008 with large anterior [place] --chronic ischemic systolic CHF with LVEF 10% and moderate MR --BIVAICD --PAF --CRI with usual baseline serum creatinine 1.2 Last cardiac cath 01/28 showed patent LAD stent with no new obstructive lesions. Echo 07/19/17 showed LVEF 10%, LVEDD 8.3cm, normal RVEF, moderate MR, mild TR. He has been hospitalized about six times in last two years (04/30, 07/28 , 01/28 and now this one 07/29). He has not insurance and illegal immigration status. I recommended VAD and OHT evaluation when I first meet him in 02/26 but not able to for above reasons. Now on IV DBT and IV Dopamine he feels okay. CP and shortness of breath are gone. He is nauseated but no PND, dizziness, palpitations or angina. He is but has his sons and their families near him but has elected not to tell his family how sick he is. On physical exam, he appears euvolemic and ARF probably from very low CO/CI and recent Metalozone use. He is feeling better except for a brief episode of nausea and lightheadedness this AM. I discussed again his case with [facility] and they cannot offer him a VAD and/or OHT without insurance and green card or SSN (none of which he has). We discussed hospice therapy and he is not ready to make any decisions. I discussed with him that we will probably get him home by Tuesday or Tuesday but risk of quickly re-decompensating high and what would he like to do. I suggested to him on previous visits going back to [place] and seeing if he could get a heart transplant or VAD covered there. He is not interested in that. Long discussion today about continued poor prognosis. I suggested we have Hebrew speaking Palliative care consult this hospitalization. Our welfare case worker has found local hospice company that will care for his pro ezra upon discharge. Will have them meet him Tuesday or Tuesday before planned discharge home and have him enrolled in hospice program upon discharge. I suggested he change to no CPR or intubation and turn off AICD function (but keep pacer function on) at time of discharge early next week. He is off IV dopamine now. His family does not want him to turn off AICD function of device or be no CPR or intubation. He would like to go back to full code. He has no new symptoms. Denies rest shortness of breath, CP, nausea or palpitations. PLAN: 1)wean off DBT gtt 1mcg/kg q4hrs to off today 2)make full code again 3)probably transfer to PCU tomorrow 4)Palliative care consult in Hebrew Tuesday afternoon. His family needs to understand nature of his CHF and no more treatment options and high likelihood of recurrent soon decompensation. Entire hospital visit today done with instructional designer present. 07/23/17 09:14 Subjective: no complaints. Denies CP, rest shortness of breath or PND. Objective: Vital Signs Temp Pulse Resp BP Pulse Ox 36.5 C 80 14 118/71 95 07/22/17 19:00 07/23/17 08:00 07/23/17 08:00 07/23/17 08:00 07/23/17 08:00 Laboratory Results 07/23/17 06:40 07/23/17 06:40 07/22/17 07/23/17 07/24/17 05:59 05:59 05:59 Intake Total 1047 859 Output Total 1250 475 Balance -203 384 PT 31.6 SEC (12.0-15.0) H 07/23/17 06:40 INR 3.08 (0.83-1.16) H 07/23/17 06:40 Physical Exam - Physical Exam General Appearance: alert EENT: normal ENT inspection Neck: non-tender Respiratory: lungs clear Cardiac/Chest: regular rate, rhythm, gallop, systolic murmur, No JVD Peripheral Pulses: 2+: carotid (R), carotid (L), femoral (R), femoral (L), dorsalis-pedis (R), dorsalis-pedis (L) Abdomen: non-tender, No guarding Skin: warm/dry Extremities: No pedal edema Neuro/Psych: alert ICD10 Worksheet Patient Problems: Problems Problem Status Onset A-fib Acute Atrial fibrillation Acute Cardiomyopathy Acute Chest pain Acute Congestive heart failure Acute
--- NOTE | 2017-07-23 09:30 | PDINTPN ---
Lap Machine Tender Progress Note Assessment/Plan: Assessment/plan: * Severe cardiomyopathy-ejection fraction approximately 10%. -continue dobutamine and dopamine drips per Cardiology * Coronary disease * Atrial fibrillation * Core status-now wishes to be full core * Hyperlipidemia * Hypertension-blood pressure controlled * Renal insufficiency-creatinine down to 1.5 * PT/OT * Nutrition-adequate * Prognosis is grim long-term Subjective: Sitting up in chair. Comfortable. Breathing easily. No current complaints. Objective: Vital Signs Temp Pulse Resp BP Pulse Ox 36.5 C 80 14 118/71 95 07/22/17 19:00 07/23/17 08:00 07/23/17 08:00 07/23/17 08:00 07/23/17 08:00 Laboratory Results 07/23/17 06:40 07/23/17 06:40 07/22/17 07/23/17 07/24/17 05:59 05:59 05:59 Intake Total 1047 859 Output Total 1250 475 Balance -203 384 PT 31.6 SEC (12.0-15.0) H 07/23/17 06:40 INR 3.08 (0.83-1.16) H 07/23/17 06:40 - Time Spent With Patient Time Spent With Patient: 25 min of time spent with patient, over 1/2 involved with coordination of care or counseling Physical Exam - Physical Exam General Appearance: WD/WN, alert, no apparent distress EENT: PERRL/EOMI, normal ENT inspection, pharynx normal, TMs normal Neck: non-tender, full range of motion, supple, normal inspection Respiratory: chest non-tender, lungs clear, normal breath sounds Cardiac/Chest: normal peripheral pulses, regular rate, rhythm, systolic murmur Peripheral Pulses: 2+: carotid (R), carotid (L), femoral (R), femoral (L), dorsalis-pedis (R), dorsalis-pedis (L) Abdomen: normal bowel sounds, non-tender, soft Male Genitalia: deferred Rectal: deferred Skin: normal color, warm/dry Extremities: normal range of motion, non-tender, normal inspection, normal capillary refill Neuro/Psych: no motor/sensory deficits, alert, normal mood/affect, oriented x 3 ICD10 Worksheet Patient Problems: Problems Problem Status Onset A-fib Acute Atrial fibrillation Acute Cardiomyopathy Acute Chest pain Acute Congestive heart failure Acute
[2017-07-23] MEDS: FAMOTIDINE 20 MG TAB PO SCH (21:38)
[2017-07-24 07:10] LABS: INR 2.26 (0.83-1.16)
[2017-07-24] MEDS: ASPIRIN EC 81 MG TAB PO SCH (08:46)
[2017-07-24] MEDS: ALLOPURINOL 100 MG TAB PO SCH (08:46)
[2017-07-24] MEDS: SENNOSIDES/DOCUSATE SODIUM TAB PO SCH ×2 (08:46→22:54)
[2017-07-24] MEDS: ATORVASTATIN CALCIUM 40 MG TAB PO SCH (08:46)
[2017-07-24] MEDS: AMIODARONE HCL 200 MG TAB PO SCH (08:46)
--- NOTE | 2017-07-24 08:57 | SOAPPROG ---
SOAP Progress Note Assessment/Plan: Assessment: CHF MD hospital follow up note 61 y/o man SSO with following cardiac and medical issues: --CAD s/p LAD PCI 2008 with large anterior TN --chronic ischemic systolic CHF with LVEF 10% and moderate MR --BIVAICD --PAF --CRI with usual baseline serum creatinine 1.2 Last cardiac cath 01/28 showed patent LAD stent with no new obstructive lesions. Echo 07/19/17 showed LVEF 10%, LVEDD 8.3cm, normal RVEF, moderate MR, mild TR. He has been hospitalized about six times in last two years (04/30, 07/28 , 01/28 and now this one 07/29). He has not insurance and illegal immigration status. I recommended VAD and OHT evaluation when I first meet him in 02/26 but not able to for above reasons. Now on IV DBT and IV Dopamine he feels okay. CP and shortness of breath are gone. He is nauseated but no PND, dizziness, palpitations or angina. He is but has his sons and their families near him but has elected not to tell his family how sick he is. On physical exam, he appears euvolemic and ARF probably from very low CO/CI and recent [employer] use. He is feeling better except for a brief episode of nausea and lightheadedness this AM. I discussed again his case with [facility] and they cannot offer him a VAD and/or OHT without insurance and green card or SSN (none of which he has). We discussed hospice therapy and he is not ready to make any decisions. I discussed with him that we will probably get him home by Tuesday or Tuesday but risk of quickly re-decompensating high and what would he like to do. I suggested to him on previous visits going back to [place] and seeing if he could get a heart transplant or VAD covered there. He is not interested in that. Long discussion today about continued poor prognosis. I suggested we have Syrian speaking Palliative care consult this hospitalization. Our senior case manager has found local hospice company that will care for his pro ezra upon discharge. Will have them meet him Tuesday or Tuesday before planned discharge home and have him enrolled in hospice program upon discharge. I suggested he change to no CPR or intubation and turn off AICD function (but keep pacer function on) at time of discharge early next week. He is off IV dopamine and dobutamine now. His family does not want him to turn off AICD function of device or be no CPR or intubation. He would like to go back to full code. He has no new symptoms. Denies rest shortness of breath, CP, nausea or palpitations. PLAN: 1)transfer out of ICU to [facility] Telemetry floor 2)restart Lasix 40mg POP qam. 3)restart Coumadin 5mg PO qam. 4)BP too low and heart too weak to restart Toprol XL or ACEI or aldactone 5)Palliative care consult tomorrow and hopefully convince pt and his family to accept pro ezra home hospice. 6)probably to his home Tuesday. 7)full code per pt and his family's wishes despite recommendations to change to no CPR or intubation and turn off AICD function of device per CHF . 07/24/17 08:54 Subjective: no complaints except mild nausea now. Off IV DBT for 12hrs. Denies CP, rest shortness of breath or PND. Objective: Vital Signs Temp Pulse Resp BP Pulse Ox 36.7 C 72 18 99/65 L 95 07/24/17 07:42 07/24/17 07:42 07/24/17 07:42 07/24/17 07:42 07/24/17 07:42 Laboratory Results 07/23/17 06:40 07/24/17 06:00 07/23/17 07/24/17 07/25/17 05:59 05:59 05:59 Intake Total 859 1583 Output Total 475 1550 Balance 384 33 PT 25.0 SEC (12.0-15.0) H 07/24/17 06:00 INR 2.26 (0.83-1.16) H 07/24/17 06:00 Physical Exam - Physical Exam General Appearance: alert EENT: pharynx normal Neck: full range of motion Respiratory: lungs clear Cardiac/Chest: regular rate, rhythm, gallop, JVD (jvp to 8cm.), systolic murmur Peripheral Pulses: 2+: carotid (R), carotid (L), femoral (R), femoral (L), dorsalis-pedis (R), dorsalis-pedis (L) Abdomen: non-tender, No distended, No guarding, No rebound Skin: warm/dry Extremities: No pedal edema Neuro/Psych: alert ICD10 Worksheet Patient Problems: Problems Problem Status Onset A-fib Acute Atrial fibrillation Acute Cardiomyopathy Acute Chest pain Acute Congestive heart failure Acute
--- NOTE | 2017-07-24 09:07 | PDINTPN ---
Professor Of Social Work Progress Note Assessment/Plan: Assessment/plan: * Severe cardiomyopathy-ejection fraction approximately 10%. -off dobutamine and dopamine drips * Coronary disease * Atrial fibrillation * Core status-now wishes to be full core * Hyperlipidemia * Hypertension-blood pressure controlled * Renal insufficiency-creatinine down to 1.5 * PT/OT * Nutrition-adequate * Prognosis is grim long-term * Disposition-agree with transfer to PCU Subjective: Sitting up in chair in resting comfortably. Good spirits. Objective: Vital Signs Temp Pulse Resp BP Pulse Ox 36.7 C 72 18 99/65 L 95 07/24/17 07:42 07/24/17 07:42 07/24/17 07:42 07/24/17 07:42 07/24/17 07:42 Laboratory Results 07/23/17 06:40 07/24/17 06:00 07/23/17 07/24/17 07/25/17 05:59 05:59 05:59 Intake Total 859 1583 Output Total 475 1550 Balance 384 33 PT 25.0 SEC (12.0-15.0) H 07/24/17 06:00 INR 2.26 (0.83-1.16) H 07/24/17 06:00 - Time Spent With Patient Time Spent With Patient: 25 min of time spent with patient, over 1/2 involved coordination of care or counseling Physical Exam - Physical Exam General Appearance: alert, no apparent distress EENT: PERRL/EOMI, normal ENT inspection Neck: non-tender, full range of motion, supple, normal inspection Respiratory: chest non-tender, lungs clear, normal breath sounds Cardiac/Chest: normal peripheral pulses, regular rate, rhythm, systolic murmur Peripheral Pulses: 2+: carotid (R), carotid (L), femoral (R), femoral (L), dorsalis-pedis (R), dorsalis-pedis (L) Abdomen: normal bowel sounds, non-tender, soft Male Genitalia: deferred Rectal: deferred Skin: normal color, warm/dry Extremities: normal range of motion, non-tender, normal inspection, normal capillary refill Neuro/Psych: no motor/sensory deficits, alert, normal mood/affect, oriented x 3 ICD10 Worksheet Patient Problems: Problems Problem Status Onset A-fib Acute Atrial fibrillation Acute Cardiomyopathy Acute Chest pain Acute Congestive heart failure Acute
[2017-07-24] MEDS: FUROSEMIDE 40 MG TAB PO SCH (09:28)
[2017-07-24] MEDS: WARFARIN SODIUM 5 MG TAB PO SCH (16:49)
[2017-07-25 04:43] LABS: INR 2.06 (0.83-1.16); PROTIME(PATIENT) 23.3 SEC (12.0-15.0)
[2017-07-25] MEDS: FUROSEMIDE 40 MG TAB PO SCH (08:16)
[2017-07-25] MEDS: ATORVASTATIN CALCIUM 40 MG TAB PO SCH (08:16)
[2017-07-25] MEDS: AMIODARONE HCL 200 MG TAB PO SCH (08:16)
[2017-07-25] MEDS: ALLOPURINOL 100 MG TAB PO SCH (08:16)
[2017-07-25] MEDS: ASPIRIN EC 81 MG TAB PO SCH (08:16)
[2017-07-25] MEDS: SENNOSIDES/DOCUSATE SODIUM TAB PO SCH (08:17)
--- NOTE | 2017-07-25 14:03 | SOAPPROG ---
ERNIE Progress Note Assessment/Plan: Assessment: 1. Coronary artery disease 2. Chronic systolic heart failure 3. Acute systolic heart failure 4. Dyslipidemia 5. PAF 6. Chronic renal insufficiency. The reader is referred to all the notes that have come before this. The patient has coronary artery disease with a stent in his left anterior descending artery and has been left with subsequent ischemic cardiomyopathy with an ejection fraction of 10%. He has moderate mitral regurgitation as well. He has a Bi V AICD in place. He has come in and cardiogenic shock he has improved now. He is going to have a palliative care consultation. At 1 point he did not want to be a full code but now evidently he does want to be a full code. I discussed his case with the the Heart failure service and they feel that he is ready to be discharged. They have recommended hospice before I totally support that recommendation. Is quite clear that patient was keep returning to the hospital. The heart failure service would like him to come follow-up with them in 7-10 days is their recommendation. I discussed with the patient going home and he seems comfortable with that idea. We will try to set this up for the morning after he has had palliative Care Conference night which is going to be happening later on in the early evening sometime when the family and translators are all available. A very extended period of time has been spent with the patient on by the previous doctors taking care of him regarding recommendations for palliative care and the fact that he has reached the end of the line that is available to him and the patient seems to not want to take the advice that is been given to him. There are no new problems today things are actually improved. The records have been reviewed. Plan: 07/25/17 14:00 07/25/17 14:04 Subjective: he reports that he is feeling okay today. he is not having chest pain he is not having shortness of breath He is sitting up in the room in walking about. he feels much improved from earlier. Objective: Vital Signs Temp Pulse Resp BP Pulse Ox 36.9 C 84 18 100/68 89 L 07/25/17 11:40 07/25/17 11:40 07/25/17 11:40 07/25/17 11:40 07/25/17 11:40 Laboratory Results 07/25/17 04:30 07/25/17 04:30 07/24/17 07/25/17 07/26/17 05:59 05:59 05:59 Intake Total 1583 1100 Output Total 1550 Balance 33 1100 PT 23.3 SEC (12.0-15.0) H 07/25/17 04:30 INR 2.06 (0.83-1.16) H 07/25/17 04:30 Physical Exam - Physical Exam General Appearance: no apparent distress Respiratory: rhonchi Cardiac/Chest: systolic murmur Abdomen: non-tender, soft Skin: warm/dry, pallor Extremities: No calf tenderness Neuro/Psych: normal mood/affect ICD10 Worksheet Patient Problems: Problems Problem Status Onset A-fib Acute Atrial fibrillation Acute Cardiomyopathy Acute Chest pain Acute Congestive heart failure Acute
--- NOTE | 2017-07-25 16:06 | ASMTCMCOM ---
CM Note CM Note Notes: 07/25/2017 Case Management Note Met w/pt, his , [facility] interpretor and Ramsey from Palliative to discuss d/c needs. Please see Palliative note for details. Contacted [facility] to inquire about palliative program. [facility] does not currently have palliative. Trever to contact Ramsey to further discuss options. Pt does not want hospice at this time. Case Management d/c poc: home with family support and follow up as directed. Per pt d/c is possible fadi. Date Signed: 07/25/2017 04:06 PM Electronically Signed By:Kary Ramos RN
[2017-07-25 16:25] VITALS: BP 94/63
--- NOTE | 2017-07-25 17:14 | GDS ---
[f rep st] DISCHARGE SUMMARY HOSPITAL COURSE: The patient was admitted to [facility] on 07/19/2017, with increase d shortness of breath and some midsternal chest discomfort. The patient has a history of myocardial infarction in 2008 to the left anterior descending artery with a very significant ischemic cardiomyop athy, and now with an ejection fraction of 10%. He has a Bi-V AICD. He has dyslipidemia. He has can d paroxysmal atrial fibrillation, cardioverted in the past, most recently, September of 2016. 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 He is using oxygen at night. He has had multiple h ospital admissions and he has been followed carefully by our heart failure service. He also has hypertension. He has chronic renal insufficiency and a history of gout. The patient, wh ile he was seen by the heart failure service, it was recommended over the years that he would be a ca ndidate for mechanical support of the heart, however, he is not eligible for that, according to the n otdavid in the records. He last had a cardiac catheterization 01/28, he had a patent LAD with no new ob structive lesions. An echocardiogram 07/19/2017, showed an ejection fraction of 10%, LVEDD of 8.3, n ormal RV EF, moderate MR, mild TR. He has been hospitalized over 6 times in the last 2 years. He had many discussions during this hospitalizations through the [place] speakers about hospice, abou t his poor prognosis, about the fact that he is not eligible for VAD treatment or OHT evaluation. Du ring the hospitalization, he decided he wanted his ICD turned off and then he changed his mind on alek t. He wanted to be a no code and then he changed his mind on that. So, at this point in time, he can s had a palliative care conference with [place]-speaking staff and he is saying that he would like to go home tonight. His prognosis is severely guarded and he is well aware of this. All his questions have been answered and he is being discharged at this time. His blood pressure at this time is 94/63, mean arterial pressure is 73, heart rate is 92, oxygen satu ration on 2 L is 96%. He is afebrile. His weight on discharge is 85.9 kg. Weight on admission was 82.7. He will follow up closely with the heart failure service and I have talked to him today about him, an d they would like to see him in 5-10 days. He is going to resume his Coumadin. His medications are listed. All his questions have been answered. His prognosis is very poor. His condition is critical. /[id number]/MODL
[2017-07-25] MEDS: WARFARIN SODIUM 5 MG TAB PO SCH (17:59)
--- NOTE | 2017-07-27 13:42 | ASDISCHSUM ---
Discharge Information Plan Status:Home with No Needs Medically Cleared to Leave:07/25/2017 Discharge Date:07/25/2017 06:05 PM CM D/C Disposition:Home, Routine, Self-Care ADT D/C Disposition:Home, Routine, Self-Care Projected Discharge Date:07/25/2017 11:00 AM Transportation at D/C:Family Discharge Delay Reason: Follow-Up Date:07/25/2017 11:00 AM Discharge Slot: Final Diagnosis: Placement Information Referral Type:*Hospice Referral ID:[id number] Provider Name:[facility] Address 1:[address] Phone Number: Address 2: Fax Number: City:[place] Selection Factors: State:[place] Patient Contact Information Contact Name:TERRELL Relationship: Address: Work Phone: [facility]: [facility] Phone: [facility] Code: Email: Financial Information Financial Class:Self-Pay Primary Plan Desc:SELF PAY Primary Plan Number: Secondary Plan Desc: Secondary Plan Number: Assessment Information [facility] CM Progress Note CM Note CM Note Notes: This is patient's fifth admission in the last year. He has an extensive cardiac history including CAD s/p LAD PCI in 2008, chronic ischemic CHF with LVEF 10%, BIVAICD, and CRI. He is unable to get the VAD and OHT that have been recommended d/t his lack of health insurance coverage. Per cardiology, there is no other recourse, and patient should go home with hospice. I spoke with patient. He understands that his prognosis is grim. He has accepted that he will soon. He does not, however, wish to share with his children the gravity of the situation. He says that his and brother (with whom he lives) know what's going on, but I'm not sure if they've been present for any conversations with physicians. I explained to patient that he needs to consider changing his code status to DNR. I also explained that we could find a hospice agency that may provide pro ezra services. I spoke about the above with Dr Griffin who reiterated this to patient. A palliative care consult has been ordered for Tuesday, and a hospice referral has been sent to [facility]. Hopefully, we can coordinate with the above, and include patient's family, and plan for discharge home on Tuesday. Case Mangement will follow. Date Signed: 07/22/2017 12:36 PM Electronically Signed By:Elisa Sierra RN [facility] Progress Note CM Note CM Note Notes: Palliative consult scheduled for TuesdayJuly 25. Patient's to attend. I also spoke with Trever Shi ([phone]) from [facility] who will await our call after the palliative meeting. Date Signed: 07/22/2017 04:10 PM Electronically Signed By:Elisa Sierra RN [facility] CM Progress Note CM Note CM Note Notes: 07/25/2017 Case Management Note Met w/pt, his , [facility] interpretor and Ramsey from Palliative to discuss d/c needs. Please see Palliative note for details. Contacted [facility] to inquire about palliative program. [facility] does not currently have palliative. Trever to contact Ramsey to further discuss options. Pt does not want hospice at this time. Case Management d/c poc: home with family support and follow up as directed. Per pt d/c is possible tonight. Date Signed: 07/25/2017 04:06 PM Electronically Signed By:Kary Ramos RN Case Management Discharge Plan Note Case Management Discharge Discharge Order Complete? Answers: Yes Patient to Obtain Answers: Independently Medications Transportation Arranged Answers: Family/Friends Faxed Final Orders Answers: Yes Agency/Facility Transfer Answers: Yes Report Printed & Faxed to Receiving Agency Family Notified Answers: Yes Notes: in room Discharge Comments Notes: 07/26/2017 Case Management Note [facility] agreed to take pt on [facility] [place] basis. Faxed orders. Notified Dr. Harris. Date Signed: 07/26/2017 02:38 PM Electronically Signed By:Kary Ramos RN Intervention Information Intervention Type:Family Meeting Date of Service:07/26/2017 02:40 PM Patient Type:Inpatient Staff Member:DEBBIE Ramos, Kary Hours: Discipline: Severity: Comment:
== END 2017-07-25 18:05 | disposition home or self-care (01) | DRG 292 ==
LOC: F2W 10:45 → F2N 15:56 → F2W 07-25 09:00
PROVIDERS: ADMIT Internal Medicine Cardiovascular Disease; ATTEND Internal Medicine
PROC: 02HV33Z Insertion of Infusion Device into Superior Vena Cava, Percutaneous Approach (ICD-10-PCS; principal; 2017-07-19)
DX: I50.23 Acute on chronic systolic (congestive) heart failure (principal); I25.5 Ischemic cardiomyopathy; N17.9 Acute kidney failure, unspecified; I12.9 Hypertensive chronic kidney disease with stage 1 through stage 4 chronic kidney disease, or unspecified chronic kidney disease; R07.89 Other chest pain; I47.2 Ventricular tachycardia; I27.20 Pulmonary hypertension, unspecified; R09.02 Hypoxemia; N18.9 Chronic kidney disease, unspecified; I25.2 Old myocardial infarction; I48.0 Paroxysmal atrial fibrillation; I95.9 Hypotension, unspecified; E78.5 Hyperlipidemia, unspecified; I25.10 Atherosclerotic heart disease of native coronary artery without angina pectoris; I34.0 Nonrheumatic mitral (valve) insufficiency; M10.9 Gout, unspecified; Z79.01 Long term (current) use of anticoagulants; Z79.899 Other long term (current) drug therapy; Z95.5 Presence of coronary angioplasty implant and graft; Z95.810 Presence of automatic (implantable) cardiac defibrillator; Z59.7 Insufficient social insurance and welfare support
CPT/HCPCS: C1751; J1250; J1265; J1940; J2405

== ENCOUNTER 2017-08-02 11:05 | Inpatient (IN) | payer SELFPAY ==
--- NOTE | 2017-08-02 11:20 | CPEKG ---
Heart Rate: 83 RR Interval: 723 P-R Interval: 172 QRSD Interval: 156 QT Interval: 412 QTC Interval: 485 P [place]: 100 QRS [place]: 126 EKG Severity - ABNORMAL ECG - EKG Impression: ATRIAL-SENSED VENTRICULAR-PACED RHYTHM Electronically Signed By: Nick Sinclair 02-Aug-2017 12:44:33
--- NOTE | 2017-08-02 11:22 | EDPHY ---
H & P Stated Complaint: SOB starting a week ago, right after D/C from admission here Time Seen by Provider: 08/02/17 11:22 - Medical/Surgical History Hx Asthma: No Hx Chronic Respiratory Disease: No Hx Diabetes: No Hx Cardiac Disease: Yes Hx Renal Disease: No Hx Cirrhosis: No Hx Alcoholism: No Hx HIV/AIDS: No Hx Splenectomy or Spleen Trauma: No Other PMH: Cardiac issues: previous pacemaker in 2008-sees [facility]. HTN., Ischemic cardiomyopathy, a-fib, VT, PM, CAD w/ stents, HLD, CHF, IA - Social History Smoking Status: Never smoked Constitutional: Initial Vital Signs O2 Sat (%) 94 08/02/17 11:06 O2 Delivery Mode Room Air O2 (L/minute) 2 Allergies/Adverse Reactions: No Known Allergies Allergy (Verified 08/02/17 11:07) Home Medications: Medication Instructions Recorded Aspirin EC [Aspirin EC 81 mg (*)] 81 mg PO DAILY 04/21/16 Amiodarone HCl [Pacerone] 200 mg PO DAILY 01/16/17 Allopurinol [Allopurinol 100 MG 100 mg PO DAILY 07/19/17 (*)] Atorvastatin Calcium [Lipitor 40 40 mg PO DAILY tab 07/25/17 mg (*)] Furosemide [Lasix 40 MG (*)] 40 mg PO DAILY #30 tab 07/25/17 Warfarin Sodium [Coumadin 5MG (*)] 5 mg PO DAILY AT 4PM tab 07/25/17 Medical Decision Making - Diagnostics Imaging Results: Imaging Impressions Chest X-Ray 08/02/17 11:28 Impression: Cardiomegaly with features of acute congestive heart failure with bilateral pleural effusions and pulmonary vascular congestion.. Imaging: I viewed and interpreted images myself ED Course/Re-evaluation: CHIEF COMPLAINT: Shortness of breath, chest pain HISTORY OF PRESENT ILLNESS: The patient is a 61 y/o male with a history of ischemic cardiomyopathy, a-fib, ventricular tachycardia, PM, CAD with stents, CHF, IA, and a pacemaker complaining of shortness of breath and chest pain. On 07/19/17 he was admitted to this hospital for CHF and renal failure. During this stay he met with multiple real estate director including his primary real estate director, Dr. Sinclair. On 07/26/17, 1 week ago, he was discharged home with palliative care follow up. Palliative care has not followed up with him yet. They removed several of his medications at discharge, but he has been taking his medications as prescribed. One day after discharge he developed shortness of breath even with 2L of supplemental oxygen. The shortness of breath has worsened, which brought him to the emergency department. Denies urinary complaints, headache, numbness, paresthesias, fever. A chief lifestyle officer was to communicate with the patient. REVIEW OF SYSTEMS: A 10 point review of systems was performed and is negative with the exception of the elements mentioned in the history of present illness. PHYSICAL EXAM: HR, BP, O2 Sat, RR. Temp noted General Appearance: Hypoxic, alert, well hydrated, appropriate, and non-toxic appearing. Head: Atraumatic without scalp tenderness or obvious injury Eyes: Pupils equal, round, reactive to light and accommodation, EOMI, no trauma , no injection. Ears: Clear bilaterally, no perforation, normal landmarks Nose: Atraumatic, no rhinorrhea, clear. Throat: There is no erythema or exudates, no lesions, normal tonsils, mucus membranes moist. Neck: Supple, nontender, no lymphadenopathy. Respiratory: Bilateral coarse rales at bases, good air excursion. No retractions , no distress, no wheezes, and no accessory muscle use. Cardiovascular: Regular rate and rhythm, no murmurs, rubs, or gallops. Bilateral carotid, radial, dorsalis pedis, and posterior tibial pulses intact. Good capillary refill all extremities. Gastrointestinal: Abdomen is soft, nontender, non-distended, no masses, no rebound, no guarding, no peritoneal signs. Musculoskeletal: Normal active ROM of all extremities, atraumatic. Neurological: Alert, appropriate, and interactive. The patient has normal DTRs and non-focal cranial nerves, motor, sensory, and cerebellar exam. Skin: No rashes, good turgor, no nodules on palpation. Past medical history: Hypertension, ischemic cardiomyopathy, a-fib, ventricular tachycardia, PM, CAD, CHF, IA Past surgical history: Pacemaker (2009), stents Family history: Denies Social history: Friend at bedside, lives in [place], DIAGNOSTICS/PROCEDURES/CRITICAL CARE TIME: The 12 lead EKG was interpreted by myself. See hard copy and/or "tracemaster" electronic copy for interpretation. Chest x-ray: Cardiomegaly, bilateral pleural effusions. DIFFERENTIAL DIAGNOSIS: The differential diagnosis for the patient's shortness of breath and hypoxemia included but was not limited to pneumonia, myocardial infarction, acute mountain sickness, high altitude pulmonary edema, congestive heart failure, and pulmonary embolus. MEDICAL DECISION MAKING: The patient is a 61 y/o male with a history of ischemic cardiomyopathy, a-fib, ventricular tachycardia, PM, CAD with stents, CHF, IA, and a pacemaker presenting with shortness of breath and chest pain. At triage he had O2Sats of 85% on 2L, so he is now on 5L room air. On exam the patient has bilateral coarse rales at the bases, but good air excursion. Labs, EKG, and chest x-ray ordered. 1227: Patient's BNP is worse since elevation. 1229: Patient's chest x-ray reveals cardiomegaly and bilateral pleural effusions. 1235: Spoke with hospitalist service, Dr. Geren accepts admission of this patient. Reassessed patient and discussed plan for admission; he is comfortable with this plan. - Data Points Laboratory Results: Laboratory Results 08/02/17 11:28 08/02/17 11:28 08/02/17 08/02/17 08/02/17 12:09 11:28 11:28 WBC RBC Hgb Hct MCV MCH MCHC RDW Plt Count MPV Neut % (Auto) Lymph % (Auto) Grimes % (Auto) Eos % (Auto) Baso % (Auto) Nucleat RBC Rel Count Absolute Neuts (auto) Absolute Lymphs (auto) Absolute Monos (auto) Absolute Eos (auto) Absolute Basos (auto) Absolute Nucleated RBC Immature Gran % Immature Gran # RBC/WBC/PLT Morphology Platelet Estimate PT 48.1 SEC H SEC REJ (12.0-15.0) INR 5.33 H* TNP (0.83-1.16) APTT 64.9 SEC H SEC TNP (23.0-38.0) Sodium 141 mEq/L mEq/L (135-145) Potassium 3.4 mEq/L mEq/L (3.3-5.0) Chloride 93 mEq/L L mEq/L (97-110) Carbon Dioxide 32 mEq/l H mEq/l (22-31) Anion Gap 16 mEq/L mEq/L (8-16) BUN 22 mg/dL mg/dL (7-23) Creatinine 1.0 mg/dL mg/dL (0.7-1.3) Estimated GFR > 60 Glucose 104 mg/dL H mg/dL (70-100) Calcium 9.2 mg/dL mg/dL (8.5-10.4) Troponin I 0.024 ng/mL ng/mL (0.000-0.034) NT-Pro-B Natriuret Pep 47937 pg/mL H pg/mL (0-125) 08/02/17 11:28 WBC 6.62 10^3/uL 10^3/uL (3.80-9.50) RBC 3.98 10^6/uL L 10^6/uL (4.40-6.38) Hgb 12.8 g/dL L g/dL (13.7-17.5) Hct 37.9 % L % (40.0-51.0) MCV 95.2 fL fL (81.5-99.8) MCH 32.2 pg pg (27.9-34.1) MCHC 33.8 g/dL g/dL (32.4-36.7) RDW 14.9 % % (11.5-15.2) Plt Count 290 10^3/uL 10^3/uL (150-400) MPV 9.9 fL fL (8.7-11.7) Neut % (Auto) 77.3 % H % (39.3-74.2) Lymph % (Auto) 8.8 % L % (15.0-45.0) Grimes % (Auto) 11.2 % % (4.5-13.0) Eos % (Auto) 1.7 % % (0.6-7.6) Baso % (Auto) 0.5 % % (0.3-1.7) Nucleat RBC Rel Count 0.0 % % (0.0-0.2) Absolute Neuts (auto) 5.12 10^3/uL 10^3/uL (1.70-6.50) Absolute Lymphs (auto) 0.58 10^3/uL L 10^3/uL (1.00-3.00) Absolute Monos (auto) 0.74 10^3/uL 10^3/uL (0.30-0.80) Absolute Eos (auto) 0.11 10^3/uL 10^3/uL (0.03-0.40) Absolute Basos (auto) 0.03 10^3/uL 10^3/uL (0.02-0.10) Absolute Nucleated RBC 0.00 10^3/uL 10^3/uL (0-0.01) Immature Gran % 0.5 % % (0.0-1.1) Immature Gran # 0.03 10^3/uL 10^3/uL (0.00-0.10) RBC/WBC/PLT Morphology TNP Platelet Estimate TNP PT INR APTT Sodium Potassium Chloride Carbon Dioxide Anion Gap BUN Creatinine Estimated GFR Glucose Calcium Troponin I NT-Pro-B Natriuret Pep Departure - Departure Disposition: [facility] In[facility] Acute Clinical Impression: Shortness of breath, Bilateral pleural effusion, Hypoxemia Congestive heart failure Qualifiers: Heart failure type: unspecified Heart failure chronicity: chronic Qualified Code(s): I50.9 - Heart failure, unspecified CHF exacerbation Qualifiers: Heart failure type: unspecified Qualified Code(s): I50.9 - Heart failure, unspecified Condition: Fair Referrals: Nick Sinclair MD [Medical Doctor] - As per Instructions Report Scribed for: Thompson Steiner Report Scribed by: Arlin William Date of Report: 08/02/17 Time of Report: 11:25
[2017-08-02 11:40] LABS: PLATELET COUNT 290 10^3/uL (150-400)
[2017-08-02 12:45] LABS: INR 5.33 (0.83-1.16)
[2017-08-02 12:47] LABS: PROTIME(PATIENT) 48.1 SEC (12.0-15.0)
[2017-08-02] MEDS ORDERED: ACETAMINOPHEN 325 MG TAB PO PRN (14:11)
[2017-08-02] MEDS ORDERED: ONDANSETRON 4 MG/2 ML VIAL IVP PRN (14:11)
[2017-08-02] MEDS ORDERED: ONDANSETRON DISINTEGRATING 4 MG TAB PO PRN (14:11)
[2017-08-02] MEDS ORDERED: PHYTONADIONE 100 MCG TAB PO ONE (15:44)
--- NOTE | 2017-08-02 16:15 | GHP ---
[f rep st] HISTORY AND PHYSICAL DATE OF ADMISSION: 08/02/2017 CHIEF COMPLAINT: Shortness of breath. HISTORY OF PRESENT ILLNESS: This is a 61-year-old male with a history of ischemic cardiomyopathy, wh o was hospitalized 07/19/2017 for acute systolic heart failure as well as renal insufficiency. The will hinton was treated and discharged on 07/25/2017. Recommendations at that time were made for the erin ent to continue with the heart failure service outpatient. They explained the prognosis was severely guarded and their recommendations for DNR status appropriate. The patient reports going home, dee dee jacobs to compliantly take his medications, and yet over the course of the last 48-hours has developed increasing shortness of breath, orthopnea, and mild swelling of the lower extremities. He does expe rience a tightness sensation across to the chest, associated with the shortness of breath and therefo re presented to the emergency department for evaluation. The patient denies any dizziness, any visio n changes, has been tolerating normal oral intake without nausea or vomiting. Denies any diarrhea, d enies any dysuria. Denies blood in his stool or his urine. PAST MEDICAL HISTORY: For this patient: 1. Coronary artery disease status post PCI of the LAD in 2008. 2. Ischemic cardiomyopathy. 3. Chronic systolic heart failure. 4. Paroxysmal atrial fibrillation. 5. Hypertension. 6. Hyperlipidemia. 7. Nocturnal hypoxia. 8. Chronic kidney disease. SOCIAL HISTORY: Patient denies tobacco, alcohol or illicit drugs. FAMILY HISTORY: Positive for coronary artery disease. ADVANCE DIRECTIVES: Patient is full code, full tube. REVIEW OF SYSTEMS: A 10-point Review of Systems is negative with the exception of that reported in t he HPI. PHYSICAL EXAMINATION: VITAL SIGNS: Blood pressure 117/77, heart rate 78, respiratory rate 19, satur ating 93% on 4 L. GENERAL: This is a healthy-appearing middle-aged male sitting up in bed. HEENT: Exam is notable for moist mucous membranes. Eye exam is negative for any icterus. CARDIAC EXAM: Will hinton is regular rate and rhythm. A systolic murmur is appreciated. PULMONARY: Patient has dimini shed breath sounds at bilateral bases, but no clear rales. GASTROINTESTINAL: Distended abdomen with positive bowel sounds. He is nontender. MUSCULOSKELETAL: Patient has trace lower extremity edema, left greater than right. NEUROLOGIC: He is alert and oriented x3. PSYCHIATRIC: He is pleasant and cooperative on interview and examination. SKIN: Negative for any rashes. DATA: Chest x-ray, which I personally reviewed and interpreted, shows bilateral pleural effusions an d vascular congestion. LABORATORY: White count 6.6, hematocrit 37.9, platelet count of 290. INR is 5.3, creatinine 1.0, so dium 141. BNP 11,800 last checked, it was 3260, 12-days ago. ASSESSMENT AND PLAN: This is a 61-year-old male with advanced ischemic cardiomyopathy who presents w [facility] acute systolic heart failure. 1. History of atrial fibrillation. Patient is currently in a paced rhythm. Will need to discuss wi th the patient ongoing plans related to his pacemaker ICD and goals of care. 2. Acute systolic heart failure. Patient reports compliance with medications. Suspect likely the i ssue is around dietary compliance. Will initiate Lasix IV 80 twice daily per Cardiology recommendati ons, to continue the difficult conversations around his ongoing treatment. 3. Acute hypoxic respiratory failure secondary to acute systolic heart failure. Will follow patient 's oxygen saturations during diuresis. 4. Coagulopathy. The patient is on outpatient warfarin, presenting with an INR of 5.33. We will ho ld the patient's warfarin this evening. Recheck an INR in the morning. Will additionally consider 5 0 mcg of vitamin K to bring him down slightly and ask Pharmacy to review medications to verify we do not have any interactions. 5. Hypertension, patient's blood pressures are well controlled. We will continue his outpatient reg imen. 6. Gout. Will continue patient's allopurinol. He is not having an acute exacerbation. 7. Prophylaxis: Holding anticoagulants with an INR 5.3. 8. Diet: Cardiac. I am going to place a dietary consultation to spend directed time educating erin ent about salt intake and heart failure. DISPOSITION: Expecting greater than 2-midnights as the patient is presenting with acute systolic hea rt failure requiring IV diuretics and close monitoring of his anticoagulation. It appears the patient has refused recently hospice as an outpatient. I have discussed the case with Cardiology. We will admit and begin IV diuresis. /[id number]/MODL
[2017-08-02] MEDS: FUROSEMIDE 100 MG/10 ML VIAL IVP SCH (16:20)
--- NOTE | 2017-08-02 16:33 | ASMTCMCOM ---
CM Note CM Note Notes: 08/02/2017 Case Management Note Pt is known to case management with recent d/c last week on 07/26/2017. Pt went home with Ana Paula beltrán. Per patent legal assistant Ana Paula saw pt yesterday. Notified Ramsey Jamil of admission. Please see palliative note from last admission for details. Pt does not have insurance at this time limiting community supports available. Case Management previously referred pt to [facility]. Will follow up with [facility] rep. Pt is followed by [facility] and [facility]. Case Management d/c poc: home with Ana Paula Beltrán. Case Management to follow. Date Signed: 08/02/2017 04:32 PM Electronically Signed By:Kary Ramos RN
--- NOTE | 2017-08-02 17:25 | PDMN ---
Medical Necessity Medical necessity: MCG: M190 heart failure A-2 days: SOB, orthopnea, mild swelling of lower extremities chest tightness, HX of afib, acute systolic heart failure with acute hypoxic resp. failure secondary to above, cxr shows bilat. pleural effusions and vascular congestion. coagulopathy INR of 5.33, hold warfarin, pt req IV diuretics and further monitoring of his anticoagulation, anticipate > 2 midnights
[2017-08-02] MEDS ORDERED: PROTOCOL POTASSIUM 1 DOSE MISC PRN (17:39)
[2017-08-02] MEDS ORDERED: POTASSIUM CL 10 MEQ TAB PO ONE (19:53)
[2017-08-02] MEDS ORDERED: CANN-EASE 2 GM TUBE TP PRN (20:50)
[2017-08-02] MEDS: MELATONIN 3 MG TAB PO PRN (21:49)
[2017-08-03 04:27] LABS: PLATELET COUNT 229 10^3/uL (150-400)
[2017-08-03 04:55] LABS: PROTIME(PATIENT) 49.1 SEC (12.0-15.0)
[2017-08-03 04:57] LABS: INR 5.48 (0.83-1.16)
[2017-08-03] MEDS ORDERED: POTASSIUM CL 10 MEQ TAB PO ONE ×2 (07:24→17:40)
[2017-08-03] MEDS: ATORVASTATIN CALCIUM 40 MG TAB PO SCH (08:59)
[2017-08-03] MEDS: AMIODARONE HCL 200 MG TAB PO SCH (08:59)
[2017-08-03] MEDS: ALLOPURINOL 100 MG TAB PO SCH (08:59)
[2017-08-03] MEDS ORDERED: AMIODARONE HCL 200 MG PO SCH (09:00)
[2017-08-03] MEDS: FUROSEMIDE 100 MG/10 ML VIAL IVP SCH ×2 (09:00→16:00)
[2017-08-03] MEDS ORDERED: ASPIRIN EC 81 MG TAB PO SCH (09:00)
--- NOTE | 2017-08-03 13:02 | HOSPPROG ---
Hospitalist Progress Note Assessment/Plan: #CHF with exacerbation, systolic #Acute hypoxic resp failure #Coagulopathy in setting of chronic AC #Hx of Afib, s/p PPM #Hypotension, slight Plan: -Cont Amio -Con Lasix BID -If able to tolerate in the future, consider BB and BARBARA-I -Hold Aspirin -Monitor INR. No e/o of bleeding at this time. No K for now, previously given Subjective: still SOB. no n/v/d. no cp. still with pedal edema Objective: Vital Signs Temp Pulse Resp BP Pulse Ox 36.4 C 70 19 110/66 96 08/03/17 11:28 08/03/17 11:28 08/03/17 11:28 08/03/17 11:28 08/03/17 11:28 Laboratory Results 08/03/17 03:27 08/03/17 03:27 08/02/17 08/03/17 08/04/17 05:59 05:59 05:59 Intake Total 1100 Output Total 1000 Balance 100 PT 49.1 SEC (12.0-15.0) H 08/03/17 03:27 INR 5.48 (0.83-1.16) H* 08/03/17 03:27 - Physical Exam Constitutional: no apparent distress Eyes: PERRL, EOMI Ears, Nose, Mouth, Throat: moist mucous membranes, hearing normal, ears appear normal Cardiovascular: regular rate and rhythym, edema Respiratory: reduced air movement, No clear to auscultation Gastrointestinal: normoactive bowel sounds, soft, non-tender abdomen Skin: warm Musculoskeletal: generalized weakness Neurologic: AAOx3 Psychiatric: interacting appropriately, not anxious, not encephalopathic Lymph, Heme, Immunologic: No petechiae ICD10 Worksheet Patient Problems: Problems Problem Status Onset Bilateral pleural effusion Acute CHF exacerbation Acute Congestive heart failure Acute Hypoxemia Acute Shortness of breath Acute A-fib Acute Atrial fibrillation Acute Cardiomyopathy Acute Chest pain Acute
--- NOTE | 2017-08-03 14:34 | ASMTCMCOM ---
CM Note CM Note Notes: Ramsey and Paige from [facility] had a palliative meeting w/ pt today. A CEMENTING BULK MATERIAL OPERATOR will f/u with pt on Tuesday. RHODA communicated this w/ Dr. Oconnell. Pts case discussed in morning rounds. CM spoke w/ Aditi with [employer] and they have submitted an emergency medicaid application on pt. Aditi obtained a income verfication letter from pts brother. CM to follow. Plan: [facility] Palliative Outpatient Date Signed: 08/03/2017 02:34 PM Electronically Signed By:TOMMY Stroud
--- NOTE | 2017-08-03 16:41 | PDCARPN ---
Cardiology Progress Note Chief Complaint: end stage CHF Assessment/Plan: Assessment: 61-y/o M with WI/PCI to LAD 2008, dyslipidemia, sCHF, ICM with EF 10%, bi-V ICD , PAF s/p cardioversion in in April and September of 2016, and nocturnal hypoxemia on home O2. Recent admission for CHF exacerbation and TY from 07/19- . He was admitted for dobutamine and dopamine to enhance diuresis and provide pressor support. Last cardiac cath 01/28 showed patent LAD stent with no new obstructive lesions. Echo 07/19/17 showed LVEF 10%, LVEDD 8.3cm, normal RVEF, moderate MR, mild TR. He has been hospitalized about six times in last two years (04/30, 07/28, 01/28 and now this one 07/29). He has no insurance due to being undocumented. Dr. Griffin saw him through his last hospitalization and recommended VAD and OHT evaluation. However, [facility] would not accept him as a candidate. He was therefore advised to be discharged with hospice care and have his ICD turned off. He declined both of these recommendations. He is readmitted with NYHA FC IV symptoms with volume overload, pleural effusions pulmonary edema, and pnd/orthopnea. He reports shortness of breath is somewhat improved but continues to note in his chest, particularly worse in the evening. He is now on daytime O2. All of his medications except Lasix, Warfarin and Amiodarone were stopped during last hospitalization. #. end-stage SCHF: limited options due to lack of insurance possibly discharge to hospice consider presenting to [facility] for next CHF exacerbation to become part of their heart failure program as they have the advanced therapies that would help him on IV lasix #. PAF: currently in SR with V-pacing continue Amiodarone #. coagulopathy: being reversed #. CAD: no new obstructive disease and symptoms likely not angina given that patient frequently reports this discomfort #. CKD: Cr improved 08/03/17 16:42 Subjective: Less short of breath. Reviewed/Discussed With: hospitalist (Dr. Oconnell) Objective: Vital Signs (8 Hrs) Temp Pulse Resp BP Pulse Ox 08/03/17 11:28 97.6 F 70 19 110/66 96 08/03/17 10:32 90 L Intake/Output (24 Hrs) 08/02/17 08/03/17 08/04/17 05:59 05:59 05:59 Intake Total 1100 Output Total 1000 Balance 100 Intake: Oral (ml) 1100 Output: Urine (ml) 1000 Urinal 1000 Other: Weight 85 kg Number of Voids Toilet 1 Urinal 1 Result Diagrams: 08/03/17 03:27 08/03/17 03:27 - Physical Exam Constitutional: no apparent distress Eyes: anicteric sclera Cardiovascular: regular rate and rhythm, No systolic murmur Respiratory: reduced air movement, inspiratory crackles Gastrointestinal: other (distended) Neurologic: AAOx3 Psychiatric: cooperative, interactive ICD10 Worksheet Patient Problems: Problems Problem Status Onset Bilateral pleural effusion Acute CHF exacerbation Acute Congestive heart failure Acute Hypoxemia Acute Shortness of breath Acute A-fib Acute Atrial fibrillation Acute Cardiomyopathy Acute Chest pain Acute
[2017-08-03] MEDS: MELATONIN 3 MG TAB PO PRN (21:31)
[2017-08-03] MEDS ORDERED: POTASSIUM CL 20 MEQ TAB PO ONE (23:00)
[2017-08-04 04:05] LABS: PLATELET COUNT 243 10^3/uL (150-400)
[2017-08-04 05:01] LABS: INR 4.2 (0.83-1.16); PROTIME(PATIENT) 40.1 SEC (12.0-15.0)
[2017-08-04] MEDS: FUROSEMIDE 100 MG/10 ML VIAL IVP SCH (09:14)
[2017-08-04] MEDS: AMIODARONE HCL 200 MG TAB PO SCH (09:15)
[2017-08-04] MEDS: ALLOPURINOL 100 MG TAB PO SCH (09:15)
[2017-08-04] MEDS: ATORVASTATIN CALCIUM 40 MG TAB PO SCH (09:15)
[2017-08-04] MEDS ORDERED: POTASSIUM CL 10 MEQ TAB PO ONE ×2 (09:23→18:38)
[2017-08-04] MEDS ORDERED: FUROSEMIDE 100 MG/10 ML VIAL IVP SCH (09:37)
[2017-08-04] MEDS ORDERED: FUROSEMIDE 40 MG/4 ML VIAL IVP ONE (09:45)
--- NOTE | 2017-08-04 12:11 | HOSPPROG ---
Hospitalist Progress Note Assessment/Plan: 61 yo with End Stage CHF with acute exacerbation CXR today personally reviewed shows worse congestion #CHF with exacerbation, systolic #Acute hypoxic resp failure #Coagulopathy in setting of chronic AC #Hx of Afib, s/p PPM #Hypotension, slight #PCMN Plan: -Cont Amio -Con Lasix BID but increase dose. May need to consider addition of other agent and/or Albumin. -Nutrition consult to attempt to maximize protein intake -If able to tolerate in the future, consider BB and BARBARA-I -Hold Aspirin -Monitor INR. No e/o of bleeding at this time. No K for now, previously given. Overall improving D/w Cards, patient, pharmacy, nursing, pillowcase cleaner Subjective: feels short of breath. additional diuretics given Objective: Vital Signs Temp Pulse Resp BP Pulse Ox 36.4 C 70 19 103/75 96 08/04/17 11:47 08/04/17 11:47 08/04/17 11:47 08/04/17 11:47 08/04/17 11:47 Laboratory Results 08/04/17 03:29 08/04/17 03:29 08/03/17 08/04/17 08/05/17 05:59 05:59 05:59 Intake Total 1100 850 400 Output Total 1000 550 525 Balance 100 300 -125 PT 40.1 SEC (12.0-15.0) H 08/04/17 03:29 INR 4.20 (0.83-1.16) H 08/04/17 03:29 - Physical Exam Constitutional: no apparent distress, not in pain Eyes: PERRL, EOMI Ears, Nose, Mouth, Throat: moist mucous membranes Cardiovascular: regular rate and rhythym, no murmur, rub, or gallop, edema Respiratory: reduced air movement Gastrointestinal: normoactive bowel sounds, soft, non-tender abdomen Skin: warm Neurologic: AAOx3 Psychiatric: interacting appropriately, not anxious, not encephalopathic Lymph, Heme, Immunologic: No petechiae ICD10 Worksheet Patient Problems: Problems Problem Status Onset Bilateral pleural effusion Acute CHF exacerbation Acute Congestive heart failure Acute Hypoxemia Acute Shortness of breath Acute A-fib Acute Atrial fibrillation Acute Cardiomyopathy Acute Chest pain Acute
--- NOTE | 2017-08-04 13:27 | PDCARPN ---
Cardiology Progress Note Chief Complaint: end-stage CHF Assessment/Plan: Assessment: 61-y/o M with NE/PCI to LAD 2008, dyslipidemia, sCHF, ICM with EF 10%, bi-V ICD , PAF s/p cardioversion in in April and September of 2016, and nocturnal hypoxemia on home O2. Recent admission for CHF exacerbation and TY from 07/19- . He was admitted for dobutamine and dopamine to enhance diuresis and provide pressor support. Last cardiac cath 01/28 showed patent LAD stent with no new obstructive lesions. Echo 07/19/17 showed LVEF 10%, LVEDD 8.3cm, normal RVEF, moderate MR, mild TR. He has been hospitalized about six times in last two years (04/30, 07/28, 01/28 and now this one 07/29). He has no insurance due to being undocumented. Dr. Griffin saw him through his last hospitalization and recommended VAD and OHT evaluation. However, [facility] would not accept him as a candidate. He was therefore advised to be discharged with hospice care and have his ICD turned off. He declined both of these recommendations. He is readmitted with NYHA FC IV symptoms with volume overload, pleural effusions pulmonary edema, and pnd/orthopnea. He reports shortness of breath is somewhat improved but continues to note in his chest, burning, particularly worse in the evening. He is now on daytime O2. All of his medications except Lasix, Warfarin and Amiodarone were stopped during last hospitalization. #. end-stage SCHF: limited options due to lack of insurance possibly discharge to hospice consider presenting to [facility] for next CHF exacerbation to become part of their heart failure program as they have the advanced therapies that would help him on IV lasix and dose increased today due to pnd #. PAF: currently in SR with V-pacing continue Amiodarone #. coagulopathy: being reversed #. CAD: no new obstructive disease and symptoms likely not angina given that patient frequently reports this discomfort #. CKD: Cr stable 08/04/17 13:26 Subjective: Feels poorly with dyspnea. Reviewed/Discussed With: hospitalist (Dr. Oconnell) Objective: Vital Signs (8 Hrs) Temp Pulse Resp BP Pulse Ox 08/04/17 11:47 97.6 F 70 19 103/75 96 08/04/17 07:49 97.8 F 76 14 110/71 96 Intake/Output (24 Hrs) 08/03/17 08/04/17 08/05/17 05:59 05:59 05:59 Intake Total 1100 850 400 Output Total 1000 550 525 Balance 100 300 -125 Intake: Oral (ml) 1100 850 400 Output: Urine (ml) 1000 550 525 Urinal 1000 550 525 Other: Weight 85 kg 83.37 kg Number of Voids Toilet 1 3 Urinal 1 1 Result Diagrams: 08/04/17 03:29 08/04/17 03:29 Telemetry: Paced - Physical Exam Constitutional: no apparent distress Eyes: anicteric sclera Cardiovascular: regular rate and rhythm Respiratory: clear to auscultate bilat, reduced air movement Skin: no rashes, no abrasions Neurologic: AAOx3 Psychiatric: cooperative, interactive ICD10 Worksheet Patient Problems: Problems Problem Status Onset Bilateral pleural effusion Acute CHF exacerbation Acute Congestive heart failure Acute Hypoxemia Acute Shortness of breath Acute A-fib Acute Atrial fibrillation Acute Cardiomyopathy Acute Chest pain Acute
[2017-08-04] MEDS: LORazepam 0.5 MG TAB PO SCH ×3 (14:29→21:26)
[2017-08-04] MEDS: FUROSEMIDE 120 MG in D5W 50 ML IV SCH (14:31)
[2017-08-05] MEDS: LORazepam 0.5 MG TAB PO SCH ×5 (01:43→23:35)
[2017-08-05 04:52] LABS: INR 3.33 (0.83-1.16); PROTIME(PATIENT) 33.6 SEC (12.0-15.0)
[2017-08-05] MEDS ORDERED: POTASSIUM CL 10 MEQ TAB PO ONE (08:01)
[2017-08-05] MEDS: ATORVASTATIN CALCIUM 40 MG TAB PO SCH (09:39)
[2017-08-05] MEDS: AMIODARONE HCL 200 MG TAB PO SCH (09:39)
[2017-08-05] MEDS: ALLOPURINOL 100 MG TAB PO SCH (09:39)
[2017-08-05] MEDS: FUROSEMIDE 120 MG in D5W 50 ML IV SCH ×2 (09:40→17:12)
--- NOTE | 2017-08-05 12:39 | PDCARPN ---
Cardiology Progress Note Chief Complaint: end-stage CHF Assessment/Plan: Assessment: 61-y/o M with RI/PCI to LAD 2008, dyslipidemia, sCHF, ICM with EF 10%, bi-V ICD , PAF s/p cardioversion in in April and September of 2016, and nocturnal hypoxemia on home O2. Recent admission for CHF exacerbation and TY from 07/19- . He was admitted for dobutamine and dopamine to enhance diuresis and provide pressor support. Last cardiac cath 01/28 showed patent LAD stent with no new obstructive lesions. Echo 07/19/17 showed LVEF 10%, LVEDD 8.3cm, normal RVEF, moderate MR, mild TR. He has been hospitalized about six times in last two years (04/30, 07/28, 01/28 and now this one 07/29). He has no insurance due to being undocumented. Dr. Griffin saw him through his last hospitalization and recommended VAD and OHT evaluation. However, [facility] would not accept him as a candidate. He was therefore advised to be discharged with hospice care and have his ICD turned off. He declined both of these recommendations. He is readmitted with NYHA FC IV symptoms with volume overload, pleural effusions pulmonary edema, and pnd/orthopnea. He reports shortness of breath is somewhat improved but continues to note in his chest, burning, particularly worse in the evening. He is now on daytime O2. All of his medications except Lasix, Warfarin and Amiodarone were stopped during last hospitalization. #. end-stage SCHF: limited options due to lack of insurance agreeing to discharge with palliative services and they can potentially provide him IV lasix at home consider presenting to [facility] for next CHF exacerbation to become part of their heart failure program as they have the advanced therapies that would help him on IV lasix and dose increased yesterday due to pnd weight coming down and net neg -1200 in 24 hours with 3 kg weight loss #. PAF: currently in SR with V-pacing continue Amiodarone #. coagulopathy: being reversed #. CAD: no new obstructive disease and symptoms likely not angina given that patient frequently reports this discomfort #. CKD: Cr stable 25 minutes spent at bedside discussing goals of care. Pt is aware that his prognosis is very poor. He has iterated that he wants to present to [facility] for future exacerbation to see if they have any options that they are able to provide him. 08/05/17 12:39 Subjective: Feeling better but O2 still drops on ambulation. Reviewed/Discussed With: family, hospitalist (Dr. Oconnell), multidisciplinary team (Kianna Ogden, noodle press operator) Time Spent with Patient: greater than 25 minutes Time Spent with Patient: Greater than 25 minutes spent on this patients care, greater than 50% of time spent counseling, educating, and coordinating care regarding the above mentioned plan. Objective: Vital Signs (8 Hrs) Temp Pulse Resp BP Pulse Ox 08/05/17 11:24 97.9 F 74 20 102/81 H 96 08/05/17 07:26 98.0 F 75 18 108/69 96 Intake/Output (24 Hrs) 08/04/17 08/05/17 08/06/17 05:59 05:59 05:59 Intake Total 850 1100 Output Total 550 2325 Balance 300 -1225 Intake: Oral (ml) 850 970 IV Infused (ml) 130 Furosemide 120 mg In D5w 130 50 ml @ 124 mls/hr IV BIDDIUR ALTHEA Rx#: [id number] Output: Urine (ml) 550 2325 Urinal 550 2325 Other: Weight 83.37 kg 81.9 kg Number of Voids Toilet 3 Urinal 1 1 Number of Stools Toilet 1 Result Diagrams: 08/04/17 03:29 08/05/17 03:40 - Physical Exam Constitutional: no apparent distress Eyes: anicteric sclera Cardiovascular: regular rate and rhythm Respiratory: reduced air movement, inspiratory crackles Gastrointestinal: normoactive bowel sounds, no tenderness Skin: other (trace-1+ edema) Musculoskeletal: no muscular tenderness, no joint effusions Neurologic: AAOx3 Psychiatric: cooperative, interactive ICD10 Worksheet Patient Problems: Problems Problem Status Onset Bilateral pleural effusion Acute CHF exacerbation Acute Congestive heart failure Acute Hypoxemia Acute Shortness of breath Acute A-fib Acute Atrial fibrillation Acute Cardiomyopathy Acute Chest pain Acute
--- NOTE | 2017-08-05 13:09 | HOSPPROG ---
Hospitalist Progress Note Assessment/Plan: 61 yo with End Stage CHF with acute exacerbation improvement on high dose diuretics however, he has a high likelihood of decompensation cont current diuresis today, re-eval in a.m d/w cards, cm, nursing, pt #CHF with exacerbation, systolic #Acute hypoxic resp failure #Coagulopathy in setting of chronic AC -improving -restart Warfarin soon -will need f/u at [facility] #Hx of Afib, s/p PPM #Hypotension, slight, monitorin #PCMN -nutrition consulting Plan: -Cont Amio -Con Lasix -Nutrition consult to attempt to maximize protein intake -If able to tolerate in the future, consider BB and BARBARA-I -Restart Aspirin -Monitor INR. No e/o of bleeding at this time. No K for now, previously given. Overall improving -We had discussion regarding end of life Subjective: feeling better. Wants further diuresis. no cp. Objective: Vital Signs Temp Pulse Resp BP Pulse Ox 36.6 C 74 20 102/81 H 96 08/05/17 11:24 08/05/17 11:24 08/05/17 11:24 08/05/17 11:24 08/05/17 11:24 Laboratory Results 08/04/17 03:29 08/05/17 03:40 08/04/17 08/05/17 08/06/17 05:59 05:59 05:59 Intake Total 850 1100 Output Total 550 2325 Balance 300 -1225 PT 33.6 SEC (12.0-15.0) H 08/05/17 03:40 INR 3.33 (0.83-1.16) H 08/05/17 03:40 - Physical Exam Constitutional: no apparent distress Eyes: PERRL Ears, Nose, Mouth, Throat: moist mucous membranes Cardiovascular: regular rate and rhythym, edema Respiratory: reduced air movement, expiratory wheeze Gastrointestinal: normoactive bowel sounds, soft, non-tender abdomen Skin: warm Musculoskeletal: No generalized weakness Neurologic: AAOx3 Psychiatric: interacting appropriately, not anxious Lymph, Heme, Immunologic: No petechiae ICD10 Worksheet Patient Problems: Problems Problem Status Onset Bilateral pleural effusion Acute CHF exacerbation Acute Congestive heart failure Acute Hypoxemia Acute Shortness of breath Acute A-fib Acute Atrial fibrillation Acute Cardiomyopathy Acute Chest pain Acute
[2017-08-05] MEDS ORDERED: WARFARIN SODIUM 2.5 MG TAB PO ONE (16:30)
--- NOTE | 2017-08-05 16:51 | ASMTCMCOM ---
CM Note CM Note Notes: 08/05/2017 Case Management Note Contacted Ana Paula to inquire about Palliative administering IV lasix. Paige from [facility] had teleconference with providers. Unfortunately if pt remains under palliative care because there is no home care agency to administer the IV due to lack of insurance. If pt were to agree to hospice IV lasix would be part of the protocol for comfort and an RN would be able to administer it at home. Met w/pt and interpretor to discuss. Pt agreeable to hospice if able to start under full code status and allowed to visit [facility] for assessment if decline occurs. Called Paige. [facility] to visit pt tomorrow to sign onto service. Ana Paula will contact case management with appointment time tomorrow to arrange for interpretor to attend meeting with pt tomorrow. D/C time will depend on when medications can be delivered to pt house by Ana Paula. Directly asked pt if he was agreeable to no further visits to the hospital. He stated he was after he visited [facility]. Discussed comfort cares and the progression of allowing nature to take its course. Pt stated he was agreeable. Pt did not have any further questions for case management. [facility]. Case Management to follow. Date Signed: 08/05/2017 04:50 PM Electronically Signed By:Kary Ramos RN
[2017-08-06 04:33] LABS: INR 2.81 (0.83-1.16); PROTIME(PATIENT) 29.5 SEC (12.0-15.0)
[2017-08-06] MEDS: LORazepam 0.5 MG TAB PO SCH ×4 (06:30→23:23)
[2017-08-06] MEDS ORDERED: POTASSIUM CL 10 MEQ TAB PO ONE ×2 (09:49→09:52)
[2017-08-06] MEDS: FUROSEMIDE 120 MG in D5W 50 ML IV SCH (09:55)
[2017-08-06] MEDS: AMIODARONE HCL 200 MG TAB PO SCH (09:55)
[2017-08-06] MEDS: ALLOPURINOL 100 MG TAB PO SCH (09:55)
[2017-08-06] MEDS: ATORVASTATIN CALCIUM 40 MG TAB PO SCH (09:55)
--- NOTE | 2017-08-06 13:23 | HOSPPROG ---
Hospitalist Progress Note Assessment/Plan: 61 yo with End Stage CHF with acute exacerbation improvement on high dose diuretics #CHF with exacerbation, systolic #Acute hypoxic resp failure #Coagulopathy, resolved #Hx of Afib, s/p PPM #Hypotension, slight, monitorin #PCMN -nutrition consulting Plan: -Cont Amio -Con Lasix but change to PO today -Nutrition consult to attempt to maximize protein intake -If able to tolerate in the future, consider BB and BARBARA-I -Restart Aspirin -cont Coumadin, dose per pharmacy -will keep overnight as we have transitioned to PO Lasix. If does ok then can d/ c tomorrow Subjective: no cp. still with SIMS. + diuresis. Feels better. Objective: Vital Signs Temp Pulse Resp BP Pulse Ox 36.5 C 70 24 H 102/75 96 08/06/17 12:00 08/06/17 12:00 08/06/17 12:00 08/06/17 12:00 08/06/17 12:00 Laboratory Results 08/04/17 03:29 08/06/17 03:30 08/05/17 08/06/17 08/07/17 05:59 05:59 05:59 Intake Total 1100 1600 Output Total 2325 1730 Balance -1225 -130 PT 29.5 SEC (12.0-15.0) H 08/06/17 03:30 INR 2.81 (0.83-1.16) H 08/06/17 03:30 - Physical Exam Constitutional: no apparent distress, not in pain Eyes: PERRL, EOMI Ears, Nose, Mouth, Throat: moist mucous membranes, hearing normal Cardiovascular: regular rate and rhythym, edema Respiratory: reduced air movement Gastrointestinal: normoactive bowel sounds, soft, non-tender abdomen Genitourinary: no bladder fullness Skin: warm Neurologic: AAOx3 Psychiatric: interacting appropriately, not anxious, not encephalopathic Lymph, Heme, Immunologic: No petechiae ICD10 Worksheet Patient Problems: Problems Problem Status Onset Bilateral pleural effusion Acute CHF exacerbation Acute Congestive heart failure Acute Hypoxemia Acute Shortness of breath Acute A-fib Acute Atrial fibrillation Acute Cardiomyopathy Acute Chest pain Acute
[2017-08-06] MEDS ORDERED: WARFARIN SODIUM 5 MG TAB PO ONE (13:45)
[2017-08-06] MEDS: FUROSEMIDE 40 MG TAB PO SCH (15:42)
--- NOTE | 2017-08-06 18:05 | ASMTCMCOM ---
CM Note CM Note Notes: Richie from [facility] palliative was here today and met w/pt. He was not able to sign him on w/Hospice today as pt plans to follow up w/[facility] tomorrow to see if there are any other treatment options and therefore Hospice would have to be revoked tomorrow. Pt understood this and will follow up w/[facility] regarding what he finds out at [place]. Discussed this w/Dr Oconnell. Pt will likely dc tomorrow. Spoke w/July at [facility] and confirmed that they could not take pt on Hospice now. She will make sure that they follow up with pt tomorrow or Tuesday. Please see CM note from 08/05 for more background on this case. Date Signed: 08/06/2017 06:04 PM Electronically Signed By:Cammy Fontenot RN
[2017-08-07 04:45] LABS: INR 2.79 (0.83-1.16); PROTIME(PATIENT) 29.3 SEC (12.0-15.0)
[2017-08-07] MEDS: LORazepam 0.5 MG TAB PO SCH ×3 (06:19→15:47)
[2017-08-07] MEDS: FUROSEMIDE 40 MG TAB PO SCH ×2 (08:18→14:00)
[2017-08-07] MEDS: ATORVASTATIN CALCIUM 40 MG TAB PO SCH (08:18)
[2017-08-07] MEDS: AMIODARONE HCL 200 MG TAB PO SCH (08:19)
[2017-08-07] MEDS: ALLOPURINOL 100 MG TAB PO SCH (08:19)
[2017-08-07] MEDS ORDERED: POTASSIUM CL 10 MEQ TAB PO ONE (08:21)
[2017-08-07] MEDS ORDERED: POTASSIUM CL 10 MEQ TAB ONE (08:24)
--- NOTE | 2017-08-07 13:37 | PDDCSUM ---
Discharge Summary Discharge Summary: 61 yo with End Stage CHF with acute exacerbation improvement on high dose diuretics He has end stage CHF but currently is resistant to hospice. He want to continue with aggressive diuresis He will be d/c with Lasix 80mg BID. he will f/u with PCP and [facility] in 2-4 weeks DDX: #CHF with exacerbation, systolic #Acute hypoxic resp failure #Coagulopathy, resolved, now back on Coumadin #Hx of Afib, s/p PPM #Hypotension #PCMN -nutrition consulting Exam: NAD AAOX3 RRR DECREASED LUNG SOUNDS S/NT/ND TRACE LE EDEMA MEDS: SEE MED REC TOTAL TIME SPENT ON D/C IS 35 MINS
[2017-08-07 13:38] VITALS: BP 104/67
[2017-08-07] MEDS ORDERED: WARFARIN SODIUM 5 MG TAB ONE (13:59)
--- NOTE | 2017-08-07 14:00 | ASMTCMCOM ---
CM Note CM Note Notes: Chart reviewed. patient discussed in rounds. He is end stage heart failure. He is going to seek second opinion at a [facility]. He is current on [facility]. They will reach out to him per July. CM available should other needs arise. Plan: Home independent Date Signed: 08/07/2017 01:59 PM Electronically Signed By:Soraida Guadalupe RN
[2017-08-07] MEDS ORDERED: WARFARIN SODIUM 5 MG TAB PO SCH (16:00)
== END 2017-08-07 15:46 | disposition home or self-care (01) | DRG 291 ==
LOC: OBSVTOIN 14:12 → F2W 14:29
PROVIDERS: ADMIT Student in an Organized Health Care Education/Training Program; ATTEND Family Medicine
DX: I50.84 End stage heart failure (principal); I50.23 Acute on chronic systolic (congestive) heart failure; J96.01 Acute respiratory failure with hypoxia; I13.0 Hypertensive heart and chronic kidney disease with heart failure and stage 1 through stage 4 chronic kidney disease, or unspecified chronic kidney disease; E44.0 Moderate protein-calorie malnutrition; D68.9 Coagulation defect, unspecified; J90 Pleural effusion, not elsewhere classified; J81.1 Chronic pulmonary edema; I47.2 Ventricular tachycardia; I95.9 Hypotension, unspecified; I25.5 Ischemic cardiomyopathy; I48.0 Paroxysmal atrial fibrillation; N18.9 Chronic kidney disease, unspecified; M10.9 Gout, unspecified; I34.0 Nonrheumatic mitral (valve) insufficiency; I25.10 Atherosclerotic heart disease of native coronary artery without angina pectoris; E78.5 Hyperlipidemia, unspecified; I25.2 Old myocardial infarction; Z79.01 Long term (current) use of anticoagulants; Z95.810 Presence of automatic (implantable) cardiac defibrillator; Z95.5 Presence of coronary angioplasty implant and graft; Z59.7 Insufficient social insurance and welfare support; Z66 Do not resuscitate
CPT/HCPCS: 84134-90; 97161-GP; 97165-GO; J1940

== ENCOUNTER 2017-08-15 05:06 | Inpatient (IN) | payer SELFPAY ==
[2017-08-15] MEDS ORDERED: ONDANSETRON DISINTEGRATING 4 MG TAB PO PRN (07:27)
[2017-08-15] MEDS ORDERED: ACETAMINOPHEN 325 MG TAB PO PRN (07:27)
[2017-08-15] MEDS ORDERED: ONDANSETRON 4 MG/2 ML VIAL IVP PRN (07:27)
--- NOTE | 2017-08-15 07:39 | CPEKG ---
Heart Rate: 141 RR Interval: 426 P-R Interval: 108 QRSD Interval: 168 QT Interval: 380 QTC Interval: 582 P [place]: 0 QRS [place]: -106 T Wave [place]: 57 EKG Severity - ABNORMAL ECG - EKG Impression: POSSIBLE ATRIAL FIBRILLATION WITH VENTRICULAR PACING Electronically Signed By: Theodora Cuellar 15-Aug-2017 16:34:10
[2017-08-15] MEDS ORDERED: ALTEPLASE 2 MG VIAL IVP PRN (07:53)
[2017-08-15] MEDS ORDERED: DOPamine/DEXTROSE/250 ML BAG IV ONE (08:04)
[2017-08-15 08:19] LABS: PLATELET COUNT 247 10^3/uL (150-400)
[2017-08-15 08:27] LABS: INR 2.65 (0.83-1.16); PROTIME(PATIENT) 28.2 SEC (12.0-15.0)
[2017-08-15] MEDS ORDERED: DOBUTamine 500 MG in D5W 250 ML IV SCH (08:30)
--- NOTE | 2017-08-15 08:30 | GHP ---
[f rep st] HISTORY AND PHYSICAL DATE OF ADMISSION: 08/15/2017 HISTORY OF PRESENT ILLNESS: Mr. Hennessy is a pleasant 61-year-old gentleman with a history of ischemic cardiomyopathy with an EF as low as 10% as measured by here less than a month ago. He was admitted to this hospital twice in the month of July with advanced heart failure and was diuresed. He has rece ntly been admitted to [facility] to the Heart Failure Service for consideration of LVAD and or heart transplant. As best I can tell, these things were not recommended and a palliative care consult was provided. He was discharged from that hospital yesterday and notably he was discharged on Bumex, lisinopril and Zaroxolyn, all of which are new medication for him. His prior diuretic jagdish men had been Lasix 80 twice daily here in [place]. He presented to the [facility] in [place], which I believe is a [facility], with weakness and headache as well as nausea and dry heaves. He was found to be hypotensive there. I spoke with that emergency medicine doctor overnight who acknowledged that the patient may b e dry and gave him 750 cc of IV fluids in 250 cc boluses. He was also started on dobutamine for hypotension. With resulting ectopy and tachycardia. When I speak with the patient, the interaction is limited by his absence of Filipino and my poor Spani sh, but there is from what I can tell he is not having chest pain, he has a headache, he has nausea. He is alert and able to consider and answer questions as the language allows. It is notable that hi s alertness does not change whether the blood pressure cuff read is 110/70 or 50/40. He has distal p ulses notable and the ER physician from [place] suggests the same. He was noted to have a creatinine of 2.8 up from 1.45 earlier. REVIEW OF SYSTEMS: Complete 10-point review of systems conducted, negative except as noted in the HP I. PAST MEDICAL HISTORY: 1. Ischemic cardiomyopathy with EF of 10%. 2. Coronary artery disease with PCI of the LAD in 2008. 3. Chronic systolic heart failure. 4. Paroxysmal atrial fibrillation on amiodarone. 5. Hypertension. 6. Hyperlipidemia. 7. Nocturnal hypoxia. 8. Chronic kidney disease. Baseline creatinine here at this hospital appears to be in the 1s, at le ast during his last admission it was 1.45 upon on discharge from [facility]. Notably on the July 19, 2017, his creatinine was 2.7 when he presented to this hospital and at that time he was felt to b e in heart failure. 9. Biventricular AICD. FAMILY HISTORY: Coronary artery disease. SOCIAL HISTORY: He is a lifelong nonsmoker. Occasional alcohol. No illicit drugs. ALLERGIES: He has no known drug allergies. MEDICATIONS: Most recent medication list includes amiodarone, Lipitor 40, aspirin 81, Bumex 2 twice daily, lisinopril 2.5 daily, metolazone 2.5 daily, nitroglycerin p.r.n., potassium, and warfarin. PHYSICAL EXAMINATION: PRESENTING VITALS: Here, blood pressure 111/92, pulse 150, breathing 32 times a minute, 97% on 4 L. GENERAL: No acute distress. Sclerae are anicteric. Oropharynx is clear. M ucous membranes are moist. NECK: Supple. There is no lymphadenopathy. LUNGS: Show some crackles at the bases, but otherwise unremarkable. HEART: S1, S2 and tachycardic. There is no systolic murm ur. ABDOMEN: Soft. EXTREMITIES: His lower extremities are without edema. There is no presacral e elina. Calves are nontender. SKIN: Without rash. NEUROLOGIC: Nonfocal. LABS: From an outside hospital. Sodium 131, potassium 3.4, chloride 88, bicarb 29, BUN 44, creatini ne 2.0. Notably, his BUN and creatinine were 29 and 1.45 earlier in the day. His BNP is 6000. INR is 2.4. White count 8.6, hematocrit 35, platelets are 362,000. Troponin is 0.04, which is a negativ e in their system. I do not have a baseline BNP. In the University system, our BNP is in the 5-11,0 00 range. Notably on the when he presented for heart failure his BNP was 5000, on the it wa s 11,800. Chest x-ray from the outside hospital shows bibasilar infiltrates. I am report looking at a report. I have discussed the case at the outside hospital emergency medicine doctor as well as Dr Ermelinda Snider of [facility]. EKG interpreted by me shows tachycardic paced rhythm, at rial paced at 141 with left axis deviation. There is a wide QRS. Compared with prior EKGs from [facility], the rate is faster and is otherwise largely similar. ASSESSMENT AND PLAN: A 61-year-old gentleman with advanced heart failure, who presents with hypotens ion, kidney injury and likely volume depletion. 1. Hypotension. The patient needs an A line. The patient is mentating with a map of 40, which is a n uncommon scenario. He has distal pulses again, which is an uncommon scenario. I think the dobutam ine that he is on for hypotension, actually is creating tachycardia, which is an situation for him. Notably the patient was recently put in Trendelenburg and then sat up and he became blurre d vision with low maps recorded. This is obviously indicative of under perfusion of his brain. I th ink the dobutamine may be contributing to hypotension in this patient. We will wean this off, an A l ine has been ordered and it will be placed. We are giving him a 250 cc bolus at this time. Again, I believe that the driving cause of his hypotension is the very low EF with volume depletion. 2. Acute kidney injury. This is hemodynamic. The patient's creatinine has been relatively normal h ere and it was relatively normal on discharge from the [facility] where he was started on 2 potent diuretics as well as an BARBARA inhibitor, which he had previously not been on and I think that is driving it. He will receive in total about a liter of fluid since midnight after my 250 cc bolus. We will have to follow this. I do have labs ordered. 3. Advanced heart failure. The patient has advanced heart failure. We need further records from [facility], they are unavailable at this time, to understand what the plans were regarding his access to advanced heart failure treatment. For now we will deal with his hemodynamics in the short term. 4. Code status. The patient, it sounds like may have had some conversations about do not resuscitat e given the language barrier. I am unable to verify that so for the short term he will be full code. 5. History of ventricular tachycardia. The patient has an AICD. 6. Atrial fibrillation. I believe that is what is driving his wide rhythm in response to vasopresso r agents. He has a therapeutic INR. 7. Prophylaxis. The patient is therapeutically anticoagulated. DISPOSITION: ICU. Forty-five minutes critical care time spent on this patient. /[id number]/MODL
[2017-08-15] MEDS: NS 1,000 ML IV SCH ×2 (08:32→12:35)
--- NOTE | 2017-08-15 08:39 | POSTANESTH ---
Post Anesthetic Evaluation Cardiovascular Status: Tx Hyper/Hypo-tension, Tx Over/Under Hydration, Other, See Comment (EMERGENT A-Line placement, chloraprep, sterile placement, no complications. 20g Right Radial A-line)
[2017-08-15] MEDS ORDERED: AMIODARONE HCL 200 MG TAB PO SCH (09:00)
[2017-08-15] MEDS ORDERED: AMIODARONE HCL 200 ML IV ONE (09:02)
[2017-08-15] MEDS ORDERED: AMIODARONE HCL 100 ML IV ONE (09:02)
--- NOTE | 2017-08-15 10:01 | GCON ---
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 HISTORY OF PRESENT ILLNESS: The patient is a very pleasant 61-year-old male, well known to me, with a past medical history, including a myocardial infarction, atrial fibrillation, hyperlipidem ia, hypertension, chronic renal insufficiency, and severe cardiomyopathy. He was evaluated at [facility] recently and was sent home on a high dose of diuretic. He presented to the emergency room in [facility] and was subsequently transferred here. At that time, he was complaining of feeling unwell. Mariann clements was admitted to the intensive care unit and currently is awake and alert. Is on dopamine and dobut amine. Of note, he was hospitalized at [facility] approximately 1 month ago for a deco mpensation of his cardiomyopathy. He was in the intensive care unit, on dobutamine and dopamine for approximately 5 days. PAST MEDICAL HISTORY: Significant for cardiomyopathy, with a last ejection fraction of approximately 10%, atrial fibrillation, hyperlipidemia, hypertension, chronic renal insufficiency, and a myocardia l infarction. PAST SURGICAL HISTORY: AICD implanted. FAMILY HISTORY: Significant for coronary artery disease. SOCIAL HISTORY: No history of tobacco use. Infrequent alcohol use. He is and has good [employer] support. Of note, he is a [place] national. ALLERGIES: No known allergies to medications. PHYSICAL EXAM: VITAL SIGNS: Blood pressure is /62. Pulse is 101. Respirations are 24, t emperature 36.5, oxygen saturation 97% on 4 L. GENERAL: He is a mildly overweight 61-year-old [place] ar[place] male who is resting comfortably on supplemental oxygen. HEENT: Eyes: PERRL, EOMI. Throat show s no erythema or tonsillar hypertrophy. NECK: Supple. There is no cervical adenopathy. HEART: Ir regular/regular with a 2/6 systolic murmur, left sternal border, without radiation. LUNGS: Diminish ed breath sounds, bibasilar rales. ABDOMEN: Soft and nontender. Bowel sounds are present. EXTREMI TIES: No clubbing, cyanosis, or edema. LABORATORY DATA: White count is 5.6, hemoglobin 10, hematocrit 31, and platelet count is 247. Chemi stries are currently pending. PT and INR are pending. Chest x-ray shows cardiomegaly. There is kayla dence of pulmonary edema. Pacemaker is present. IMPRESSION: 1. Severe end-stage cardiomyopathy with an ejection fraction of 10%. 2. Atrial fibrillation. 3. Shock, presumably hypovolemia, likely secondary to over diuresis. 4. Acute on chronic renal insufficiency. 5. History of coronary artery disease with a myocardial infarction. 6. Hyperlipidemia. 7. History of hypertension. RECOMMENDATIONS: 1. Continue with hydration. Will give IV fluids somewhat gingerly. 2. Agree with dopamine and dobutamine. 3. Cardiology to see. 4. Consider echocardiogram. 5. Follow BUN and creatinine closely. 6. Agree with PICC line. 7. Patient is currently full cor. /[id number]/MODL
--- NOTE | 2017-08-15 10:01 | ASMTCMCOM ---
CM Note CM Note Notes: 61yr old male admitted for CP, Cardiomyopathy, Afib, CHF, Bilat PE, Hypoxemia. Has been to [facility] in July, [facility] for consideration ofLVAD or hrt transplant-not recommended and [facility] in [place]. Being tx medically here for hypotension, advanced hrt failure and AKD. CM to follow for discharge needs. Date Signed: 08/15/2017 10:00 AM Electronically Signed By:Chantelle Spring LCSW
--- NOTE | 2017-08-15 13:19 | HOSPPROG ---
Hospitalist Progress Note Assessment/Plan: 61-year-old man with a history of ischemic cardiomyopathy with EF 10-20% is admitted within 24 hr after being discharged from [facility]. Please see admitting H&P for full details comes in with malaise and was found to have acute on chronic renal failure and hypotension. After starting on some dobutamine he became tachycardic with significant ectopy and is transferred here from [facility] emergency room. # acute on chronic renal failure with poor urine output. Likely secondary over diuresis although complicated by severe cardiomyopathy. He has been hydrated very slowly as the patient is quite tenuous. * Continue to monitor renal function with slow hydration * PVR checked and is minimal # ischemic cardiomyopathy with EF 10%. Ineligible for transplant given his documentation status so VAD not appropriate. * appreciate cardiology input # cardiogenic shock versus hypovolemic shock. Slow IV fluids, patient currently on pressors including dobutamine and dopamine # a arrhythmias: Patient with pacemaker placed currently on amiodarone Subjective: Patient new to me and chart reviewed. History of multiple hospitalizations for end-stage cardiomyopathy, patient and not interested in palliative care at this time although long-term prognosis, even short-term prognosis is poor Objective: Vital Signs Temp Pulse Resp BP Pulse Ox 36.5 C 120 H 20 103/40 L 93 08/15/17 07:08 08/15/17 12:00 08/15/17 12:00 08/15/17 12:00 08/15/17 12:00 Laboratory Results 08/15/17 08:10 08/15/17 08:10 08/14/17 08/15/17 08/16/17 05:59 05:59 05:59 Output Total 250 Balance -250 PT 28.2 SEC (12.0-15.0) H 08/15/17 08:10 INR 2.65 (0.83-1.16) H 08/15/17 08:10 - Physical Exam Constitutional: chronically ill appearing Cardiovascular: No regular rate and rhythym (Tachy), No edema Respiratory: no respiratory distress ICD10 Worksheet Patient Problems: Problems Problem Status Onset Cardiomyopathy Acute Chest pain Acute Atrial fibrillation Acute Congestive heart failure Acute CHF exacerbation Acute Shortness of breath Acute Bilateral pleural effusion Acute Hypoxemia Acute A-fib Acute
--- NOTE | 2017-08-15 15:20 | SOAPPROG ---
ERNIE Progress Note Assessment/Plan: Assessment: 1. Coronary artery disease with previous anterior infarct status post PCI/ stenting of the LAD. 2. Residual severe, end-stage ischemic cardiomyopathy with an ejection fraction of 10-15 present with a severely dilated left ventricle and chronic [place] heart Association functional class 4 systolic congestive heart failure. 3. Moderate to severe functional mitral regurgitation. 4. Paroxysmal atrial fibrillation/flutter currently in atrial fibrillation/ flutter with a rapid ventricular response. 5. Medical history complicated by social factors to include his undocumented status and lack of availability of advanced congestive heart failure therapies in this country. 6. Acute renal insufficiency likely related to ATN in the setting of hypotension. His current hemodynamic instability is certainly complicated by his arrhythmia however, even in sinus rhythm in the past he has had tenuous hemodynamics and chronic heart failure. His major barrier to appropriate care is more related to his social status rather than specific medical therapies. I think it is important that an ethics consult be asked for and that the social workers get involved. I did have a long conversation with he and his today regarding his health and his poor prognosis. I specifically addressed the fact that we really have limited options for providing him care here. We talked at length about hospice care as well. Plan: 1. An ethics consult has been asked for. 2. He was started on amiodarone intravenously. 3. At the present time I do not think he requires additional diuretic therapy. 4. He has been placed on a slow infusion of normal saline. 5. I will make him NPO after midnight and plan for cardioversion in the morning. 6. We could consider ablation of his AV node. 7. Ideally we would be able to transfer him to [place] where he could have definitive care. The logistics of that are really not clear to me at the present time. 8. For the time being I would discontinue his outpatient lisinopril dose and any other heart failure specific medications such as beta-blockers. 9. Will carefully follow his renal function. 10. His prognosis is extremely poor. 08/15/17 15:21 Subjective: The patient was seen and examined in the presence of an gas operation manager. His chart was reviewed. I personally reviewed his previous echocardiogram. He has known CAD with a previous infarct back in 2008. At that time, he underwent PCI and stenting of the LAD. His most recent cardiac catheterization was this last January which demonstrated patency of his LAD stent. His ejection fraction was 10 to 15% at that time with an EDP in the low 30s. He has a history of chronic systolic congestive heart failure with the Biotronik biventricular ICD in place. Additionally, he has a history of paroxysmal atrial fibrillation on amiodarone and systemic anticoagulation. He underwent cardioversion of atrial fibrillation back in April of this year. He has had several hospitalizations with decompensated congestive heart failure. He has been seen by the congestive Heart failure Service both at this institution and at the [facility]. Because of his status as an undocumented alien he has been turned down for advanced congestive heart failure therapies such as left ventricular assist device or cardiac transplantation. Apparently, he was hospitalized at the [facility] as recently as last week. He was discharged only to be readmitted to the hospital at [facility] in [place]. At that time he had symptoms of severe fatigue and was noted to be profoundly hypotensive with a blood pressure of 50 mmHg systolic. He was started on dobutamine and dopamine and subsequently transferred here. Since he has arrived here he has been persistently tachycardic. Fortunately, his hemodynamics have improved. His systolic pressures have been in the 90s. He is not experiencing any current chest discomfort. He is not experiencing orthopnea, PND or significant edema. He denies fever, chills and sweats. I did have his ICD interrogated. It appears that he is in rapid atrial flutter with 2-1 conduction with periods of time of atrial fibrillation and minimal biventricular pacing. Objective: Vital Signs Temp Pulse Resp BP Pulse Ox 36.5 C 124 H 25 H 95/34 L 97 08/15/17 07:08 08/15/17 14:00 08/15/17 14:00 08/15/17 14:00 08/15/17 14:00 Laboratory Results 08/15/17 08:10 08/15/17 08:10 08/14/17 08/15/17 08/16/17 05:59 05:59 05:59 Output Total 600 Balance -600 PT 28.2 SEC (12.0-15.0) H 08/15/17 08:10 INR 2.65 (0.83-1.16) H 08/15/17 08:10 Physical Exam - Physical Exam General Appearance: WD/WN, no apparent distress Neck: non-tender, full range of motion Respiratory: crackles (At the base), No normal breath sounds, No respiratory distress, No accessory muscle use, No rhonchi Cardiac/Chest: gallop (Loud 3rd heart sound), tachycardia (Tachycardia), No edema, No JVD Peripheral Pulses: 1+: carotid (R), carotid (L), femoral (R) Abdomen: non-tender, soft Rectal: deferred Neuro/Psych: oriented x 3 ICD10 Worksheet Patient Problems: Problems Problem Status Onset A-fib Acute Atrial fibrillation Acute Bilateral pleural effusion Acute CHF exacerbation Acute Cardiomyopathy Acute Chest pain Acute Congestive heart failure Acute Hypoxemia Acute Shortness of breath Acute
--- NOTE | 2017-08-15 15:38 | PDMN ---
Medical Necessity Medical necessity: Patient meets inpatient criteria per physician note and [facility] [place] -[place] Heart Failure (tachycardia to 120-130's after initial treatment; tachypnea to 32; sat 90% on 4LPM O2; history of ischemic cardiomyopathy w/EF 10% < 1 mo. prior; diuresed x 2 twice in July; started on amiodarone IV gtt after initial fluid challenge and dobutamine gtt weaned; anticipated LOS > 2 midnights for ongoing management of end-stage cardiomyopathy.)
[2017-08-15] MEDS ORDERED: AMIODARONE HCL 540 MG in D5W 300 ML IV ONE (15:45)
--- NOTE | 2017-08-15 16:19 | ASMTCMCOM ---
CM Note CM Note Notes: Dr Hansen had a long discussion with patient and his . [facility] does not have the expertise to perform needed operation. The only hospital in [place] that has the expertise is and they have told them they are unable to help given he is not a [place] citizen. Dr. Hansen encouraged them to return to [place] where they could get care. They have lived in [place] and have no family or wouldn't know how to access the needed medical assistance. Patient doesn't want to at home and doesn't want his children knowing how sick he is. Ethics, Dr. Sethi present and wondered how best to compromise with patient to help him feel comfortable with care outside the hospital. Contacted [facility] who reports that they met with patient Tuesday when he was at and they were going to open his case at home Tuesday. They will come to talk to him tomorrow at 11:00 for a possible admit to their Care Ctr. [facility] sent updated patient info. Date Signed: 08/15/2017 04:18 PM Electronically Signed By:Chantelle Spring LCSW
[2017-08-15] MEDS: WARFARIN SODIUM 2.5 MG TAB PO SCH (16:44)
[2017-08-16 04:46] LABS: INR 2.6 (0.83-1.16); PLATELET COUNT 286 10^3/uL (150-400); PROTIME(PATIENT) 27.8 SEC (12.0-15.0)
--- NOTE | 2017-08-16 09:29 | SOAPPROG ---
SOAP Progress Note Assessment/Plan: Assessment: 1. Coronary artery disease with previous anterior infarct status post PCI/ stenting of the LAD. 2. Residual severe, end-stage ischemic cardiomyopathy with an ejection fraction of 10-15 present with a severely dilated left ventricle and chronic [place] heart Association functional class 4 systolic congestive heart failure. 3. Moderate to severe functional mitral regurgitation. 4. Paroxysmal atrial fibrillation/flutter currently in atrial fibrillation/ flutter with a rapid ventricular response. 5. Medical history complicated by social factors to include his undocumented status and lack of availability of advanced congestive heart failure therapies in this country. 6. Acute renal insufficiency likely related to ATN in the setting of hypotension. The for the last 24 hr he has been stable. His creatinine now has nearly normalized. We were able to reduce his dopamine and dobutamine to very small doses. Currently he is on 2 mcg per kilos per minute of dopamine and 1.25 micrograms/kilos per minute of dobutamine. He continues to be in atrial fibrillation. We have not seen any sustained ventricular arrhythmias. I did talk to him this morning about his code status. He was really unwilling to change his mind regarding his resuscitation status. Plan: 1. Ongoing discussions will be had with he and his family regarding his poor prognosis and code status. 2. Fortunately, we do have a customer relations representative from the ethics service helping us with this decision-making process. 3. I would like to try to wean down his dopamine and dobutamine to as low as possible. 4. I will plan for a quick TERESITA and cardioversion later today. Obviously, this will be a higher risk procedure than usual. I do feel that sinus rhythm would likely significantly improve his hemodynamics. Hopefully will be able to maintain sinus rhythm after his amiodarone load. 5. I wonder if he might benefit from an AV node ablation. I will discuss this with the EP service. 6. Would like to try to contact Cardiology in [place] to see what benefits he might have there. 7. His prognosis is poor. 08/16/17 09:26 Subjective: He has remained stable overnight. He continues to be in atrial fibrillation however his heart rates have improved. Today he has no complaints specifically denying dyspnea and anginal quality chest discomfort. He slept well and is able to lie flat. He does not have any edema. Multiple conversations have been had with both he individually and his family regarding his general health and code status. An ethics consult was obtained. Overall, there really has been no change in either his desires or his family's desires regarding his resuscitation status. Objective: Vital Signs Temp Pulse Resp BP Pulse Ox 36.8 C 93 19 102/65 96 08/16/17 08:00 08/16/17 08:00 08/16/17 08:00 08/16/17 08:00 08/16/17 08:00 Laboratory Results 08/16/17 04:25 08/16/17 04:25 08/15/17 08/16/17 08/17/17 05:59 05:59 05:59 Intake Total 3299.4 Output Total 3375 Balance -75.6 PT 27.8 SEC (12.0-15.0) H 08/16/17 04:25 INR 2.60 (0.83-1.16) H 08/16/17 04:25 Physical Exam - Physical Exam General Appearance: WD/WN, no apparent distress Neck: non-tender, full range of motion Respiratory: lungs clear, No decreased breath sounds, No crackles, No rales, No rhonchi Cardiac/Chest: gallop (Loud 3rd heart sound), tachycardia, irregularly irregular Peripheral Pulses: 1+: carotid (R), carotid (L) Abdomen: normal bowel sounds, non-tender Male Genitalia: deferred Rectal: deferred Neuro/Psych: alert, oriented x 3 ICD10 Worksheet Patient Problems: Problems Problem Status Onset A-fib Acute Atrial fibrillation Acute Bilateral pleural effusion Acute CHF exacerbation Acute Cardiomyopathy Acute Chest pain Acute Congestive heart failure Acute Hypoxemia Acute Shortness of breath Acute
--- NOTE | 2017-08-16 09:42 | HOSPPROG ---
Hospitalist Progress Note Assessment/Plan: 61-year-old man with a history of ischemic cardiomyopathy with EF 10-20% is admitted within 24 hr after being discharged from [facility]. Please see admitting H&P for full details comes in with malaise and was found to have acute on chronic renal failure and hypotension. After starting on some dobutamine he became tachycardic with significant ectopy and is transferred here from [facility] emergency room. Discussed in multidisciplinary rounds. # acute on chronic renal failure with poor urine output. Likely secondary over diuresis although complicated by severe cardiomyopathy. He has been hydrated very slowly as the patient is quite tenuous. * Improved creatinine today * PVR checked and is minimal # ischemic cardiomyopathy with EF 10%. Ineligible for transplant given his documentation status so VAD not appropriate. * appreciate cardiology input * Trial of wean off dobutamine and dopamine * Possible cardioversion * Continue amiodarone for now * Defer to Cardiology regarding medications to resume. # cardiogenic shock versus hypovolemic shock. Slow IV fluids, patient currently on pressors including dobutamine and dopamine # a arrhythmias: Patient with pacemaker placed currently on amiodarone Subjective: feeling better today. no cp Objective: Vital Signs Temp Pulse Resp BP Pulse Ox 36.8 C 93 19 102/65 96 08/16/17 08:00 08/16/17 08:00 08/16/17 08:00 08/16/17 08:00 08/16/17 08:00 Laboratory Results 08/16/17 04:25 08/16/17 04:25 08/15/17 08/16/17 08/17/17 05:59 05:59 05:59 Intake Total 3299.4 Output Total 3375 Balance -75.6 PT 27.8 SEC (12.0-15.0) H 08/16/17 04:25 INR 2.60 (0.83-1.16) H 08/16/17 04:25 - Physical Exam Constitutional: chronically ill appearing Eyes: PERRL Ears, Nose, Mouth, Throat: moist mucous membranes Cardiovascular: irregularly irregular, No regular rate and rhythym (tachy) Respiratory: no respiratory distress, clear to auscultation Gastrointestinal: normoactive bowel sounds Genitourinary: no bladder fullness Skin: normal color Neurologic: AAOx3 Psychiatric: interacting appropriately ICD10 Worksheet Patient Problems: Problems Problem Status Onset Cardiomyopathy Acute Chest pain Acute Atrial fibrillation Acute Congestive heart failure Acute CHF exacerbation Acute Shortness of breath Acute Bilateral pleural effusion Acute Hypoxemia Acute A-fib Acute
--- NOTE | 2017-08-16 09:43 | CPEKG ---
Heart Rate: 78 RR Interval: 769 QRSD Interval: 170 QT Interval: 420 QTC Interval: 479 QRS [place]: 263 T Wave [place]: 70 EKG Severity - ABNORMAL ECG - EKG Impression: AFIB/FLUT AND V-PACED COMPLEXES Electronically Signed By: Theodora Cuellar 16-Aug-2017 20:31:34
--- NOTE | 2017-08-16 10:00 | PDINTPN ---
Clinical Informatics Strategist Progress Note Assessment/Plan: Assessment/plan: * End-stage cardiomyopathy-the on dobutamine and dopamine * Atrial fibrillation/flutter-question cardioversion * Shock-still requiring dopamine * Chronic renal insufficiency * With acute renal failure history of myocardial infarction coronary disease * AICD * VT prophylaxis * Stress ulcer prophylaxis Subjective: Resting comfortably. Breathing easily. No current pain. Objective: Vital Signs Temp Pulse Resp BP Pulse Ox 36.8 C 93 19 102/65 96 08/16/17 08:00 08/16/17 08:00 08/16/17 08:00 08/16/17 08:00 08/16/17 08:00 Laboratory Results 08/16/17 04:25 08/16/17 04:25 08/15/17 08/16/17 08/17/17 05:59 05:59 05:59 Intake Total 3299.4 Output Total 3375 Balance -75.6 PT 27.8 SEC (12.0-15.0) H 08/16/17 04:25 INR 2.60 (0.83-1.16) H 08/16/17 04:25 - Time Spent With Patient Time Spent With Patient: 35 min of time spent with patient, over 1/2 involved coordination of care or counseling Physical Exam - Physical Exam General Appearance: alert, no apparent distress EENT: PERRL/EOMI, normal ENT inspection Neck: non-tender, full range of motion, supple, normal inspection Respiratory: chest non-tender, lungs clear, normal breath sounds Cardiac/Chest: normal peripheral pulses, regular rate, rhythm, systolic murmur Peripheral Pulses: 2+: carotid (R), carotid (L), femoral (R), femoral (L), dorsalis-pedis (R), dorsalis-pedis (L) Abdomen: normal bowel sounds, non-tender, soft Male Genitalia: deferred Rectal: deferred Skin: normal color, warm/dry Extremities: normal range of motion, non-tender, normal inspection, normal capillary refill Neuro/Psych: alert ICD10 Worksheet Patient Problems: Problems Problem Status Onset A-fib Acute Atrial fibrillation Acute Bilateral pleural effusion Acute CHF exacerbation Acute Cardiomyopathy Acute Chest pain Acute Congestive heart failure Acute Hypoxemia Acute Shortness of breath Acute
[2017-08-16] MEDS ORDERED: AMIODARONE A.FIB-18HR INFSN (ORDER 3/3) IV SCH (10:15)
[2017-08-16] MEDS ORDERED: ATROPINE SULFATE 1 MG/10 ML SYR IVP ONE (11:18)
[2017-08-16] MEDS ORDERED: NS 1,000 ML IV ONE (11:18)
[2017-08-16] MEDS ORDERED: ATROPINE SULFATE 1 MG/10 ML SYR ONE (11:32)
[2017-08-16] MEDS ORDERED: POTASSIUM Cl (KCl) 50 ML IV ONE (11:45)
[2017-08-16] MEDS ORDERED: PROPOFOL/EMULSION 500 MG/50 ML BOTTLE IV ONE (13:02)
--- NOTE | 2017-08-16 13:21 | PDTEE1 ---
TERESITA Cardioversion Procedure Procedure: electrical cardioversion Indications: atrial fibrillation Consent: signed and in chart Anticoagulation: warfarin Procedural Details: Pads were placed in anterior-posterior position. TERESITA probe was advanced and standard images obtained. There is no evidence of left atrial or left atrial appendage thrombus. Synchronized cardioversion attempt #1: 200J Results: normal sinus rhythm Conclusions: successful TERESITA cardioversion Patient Problems: Problems Problem Status Onset A-fib Acute Atrial fibrillation Acute Bilateral pleural effusion Acute CHF exacerbation Acute Cardiomyopathy Acute Chest pain Acute Congestive heart failure Acute Hypoxemia Acute Shortness of breath Acute
--- NOTE | 2017-08-16 13:28 | PDANEPAE ---
ANE Past Medical History - Pulmonary History Hx Oxygen in Use at Home: Yes O2 in Use at Home (L/minute): 2 Hx Sleep Apnea: No - Endocrine History Hx Diabetes: No - Chronic Pain History Chronic Pain: No ANE Review of Systems Review of Systems: - Pacemaker Pacemaker Coremaker Machine: BiotroniHYLA Mobile Pacemaker Mode: DVI Date Pacemaker Last Checked: June 2017 ANE Patient History - Allergies Allergies/Adverse Reactions: No Known Allergies Allergy (Verified 08/02/17 11:07) - Home Medications Home Medications: Amiodarone HCl [Pacerone] 200 mg PO DAILY 01/16/17 [Last Taken 08/14/17] Bumetanide [Bumex (*)] 2 mg PO BID 08/15/17 [Last Taken 08/14/17 21:00] Lisinopril [Zestril 2.5 mg (*)] 2.5 mg PO DAILY 08/15/17 [Last Taken 08/14/17] Metolazone 2.5 mg PO DAILY 08/15/17 [Last Taken 08/14/17] Potassium Cl [Klor-Con 20 meq (*)] 20 meq PO DAILY 08/15/17 [Last Taken 08/14/17 ] Warfarin Sodium [Coumadin 2.5MG (*)] 2.5 mg PO DAILY16 08/15/17 [Last Taken 05/29] - Smoking Hx Smoking Status: Never smoked ANE Labs/Vital Signs - Labs Result Diagrams: 08/16/17 04:25 08/16/17 04:25 - Vital Signs Blood Pressure: 103/60 Heart Rate: 96 Respiratory Rate: 19 O2 Sat (%): 95 Height: 162.56 cm Weight: 85 kg ANE Physical Exam - Airway Neck exam: decreased ROM Mallampati Score: Class 3 Mouth exam: poor dentition - Pulmonary Pulmonary: no respiratory distress - Cardiovascular Cardiovascular: irregularly irregular - ASA Status ASA Status: IV ANE Anesthesia Plan Total IV Anesthesia: Yes Urgent/Emergent Case: Juli jiménez completed preop but documented later for safe timely pt care
[2017-08-16] MEDS ORDERED: ALBUTEROL 3 ML DEYVIAL IH PRN (13:29)
[2017-08-16] MEDS ORDERED: NALOXONE HCL 0.4 MG/ML INJ IVP PRN (13:29)
--- NOTE | 2017-08-16 13:29 | POSTANESTH ---
Post Anesthetic Evaluation Cardiovascular Status: Similar to Pre-Op Cond Respiratory Status: Similar to Pre-op Cond. Level of Consciousness/Mental Status: Mildly Sleepy, Arousable Pain Control: Adequate, Prn Tx Ordered Nausea/Vomiting Control: Adequate, Prn Tx Ordered Complications Possibly Related to Anesthesia: None Noted
--- NOTE | 2017-08-16 13:40 | ECHO ---
[email or web address] [id number] Main: [phone] Fax: Transesophageal Echocardiography Name: ZOEY BANG MR#: [id number] Study Date: 08/16/2017 Study Time: 12:30 PM Date of : 1955 Age: 61 year(s) Height: ( ) Weight: ( ) BSA: Gender: Male Examination: TERESITA Indication: CHF, Pre Cardioversion Image Quality: Contrast: Requested by: Dung Hansen Heart Rate: Rhythm: Atrial fibrillation BP: 100 mmHg/60 mmHg Procedure Staff Breaker Mechanic: Oswaldo Asif RDCS Reading Physician: Dung Hansen MD Requesting Provider: TERESITA Exam Details Conclusions: Severely reduced systolic LV function. The ejection fraction is estimated to be 5-10 %. Good color flow doppler in the left atrial appendage. No thrombus in left appendage. Proceeded with successful elective DC cardioversion.. Measurements: Chambers Valvular Assessment AV/MV Valvular Assessment TV/PV Normal Normal Normal Name Value Range Name Value Range Name Value Range EF Range: 5-10 % Additional Measurements: Findings: Left Ventricle: Severely reduced systolic LV function. The ejection fraction is estimated to be 5-10 %. Left Atrial Appendage: Good color flow doppler in the left atrial appendage. No thrombus in left appendage. Exam Comments: Proceeded with successful elective DC cardioversion.. l1n Patient: ZOEY BANG Study Date: 08/16/2017 Page 1 of 2 12:30 PM (No Signature Object) Patient: ZOEY BANG Study Date: 08/16/2017 Page 2 of 2 12:30 PM [id number]
--- NOTE | 2017-08-16 14:25 | ASMTCMCOM ---
CM Note CM Note Notes: Patient was cardioverted today. GLAD[facility] hospice visit was put on hold. Patient may not be appropriate for [facility] at this time. Date Signed: 08/16/2017 02:25 PM Electronically Signed By:Chantelle Spring LCSW
[2017-08-16] MEDS: WARFARIN SODIUM 2.5 MG TAB PO SCH (15:29)
[2017-08-17 05:30] LABS: INR 2.55 (0.83-1.16); PROTIME(PATIENT) 27.4 SEC (12.0-15.0)
[2017-08-17] MEDS: AMIODARONE HCL 200 MG TAB PO SCH ×2 (07:38→09:45)
--- NOTE | 2017-08-17 08:52 | PDINTPN ---
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 Will consult ethics Subjective: Sitting up in chair eating breakfast. Comfortable. Not breathless. Objective: Vital Signs Temp Pulse Resp BP Pulse Ox 37.1 C 73 22 H 108/61 96 08/16/17 20:00 08/17/17 07:41 08/17/17 07:41 08/17/17 07:41 08/17/17 07:41 Laboratory Results 08/16/17 04:25 08/16/17 04:25 08/16/17 08/17/17 08/18/17 05:59 05:59 05:59 Intake Total 3299.4 1903 Output Total 3375 900 Balance -75.6 1003 PT 27.4 SEC (12.0-15.0) H 08/17/17 05:05 INR 2.55 (0.83-1.16) H 08/17/17 05:05 Laboratory Results 08/16/17 04:25 08/16/17 04:25 08/17/17 08/16/17 05:05 04:25 PT 27.4 SEC H SEC 27.8 SEC H SEC (12.0 - 15.0) (12.0 - 15.0) INR 2.55 H (0.83 - 1.16) - Time Spent With Patient Time Spent With Patient: 25 min of time spent with patient, over 1/2 involved with coordination of care or counseling Physical Exam - Physical Exam General Appearance: WD/WN, alert, no apparent distress EENT: PERRL/EOMI Neck: non-tender, full range of motion, supple, normal inspection Respiratory: crackles (Few basilar), No respiratory distress, No accessory muscle use Cardiac/Chest: normal peripheral pulses, regular rate, rhythm, systolic murmur Peripheral Pulses: 2+: carotid (R), carotid (L), femoral (R), femoral (L), dorsalis-pedis (R), dorsalis-pedis (L) Abdomen: normal bowel sounds, non-tender, soft Male Genitalia: deferred Rectal: deferred Skin: normal color, warm/dry Extremities: normal range of motion, non-tender, normal inspection, normal capillary refill Neuro/Psych: no motor/sensory deficits, alert, normal mood/affect, oriented x 3 ICD10 Worksheet Patient Problems: Problems Problem Status Onset A-fib Acute Atrial fibrillation Acute Bilateral pleural effusion Acute CHF exacerbation Acute Cardiomyopathy Acute Chest pain Acute Congestive heart failure Acute Hypoxemia Acute Shortness of breath Acute
--- NOTE | 2017-08-17 09:25 | SOAPPROG ---
SOAP Progress Note Assessment/Plan: Assessment: 1. Coronary artery disease with previous anterior infarct status post PCI/ stenting of the LAD. 2. Residual severe, end-stage ischemic cardiomyopathy with an ejection fraction of 10-15 present with a severely dilated left ventricle and chronic [place] heart Association functional class 4 systolic congestive heart failure. 3. Moderate to severe functional mitral regurgitation. 4. Paroxysmal atrial fibrillation/flutter currently in atrial fibrillation/ flutter with a rapid ventricular response. 5. Medical history complicated by social factors to include his undocumented status and lack of availability of advanced congestive heart failure therapies in this country. 6. Acute renal insufficiency likely related to ATN in the setting of hypotension with subsequent normalization of his creatinine. He has been stable for the last 24 hr maintaining sinus rhythm following his cardioversion. He requires 2 L of oxygen which is his baseline. He does, however, continued to require low-dose dopamine for pressure support. Plan: 1. Today, his IV amiodarone will be discontinued and he will be started on p.o. Amiodarone. 2. I would like him to have a PA and lateral chest x-ray. 3. We will continue to make efforts to wean and discontinue his dopamine. 4. Depending on his clinical course throughout the day we may restart oral diuretic therapy. 5. We will continue conversations with he and his regarding palliative care /hospice. 6. His prognosis is poor. 08/17/17 09:24 Subjective: He appears to be doing well today. He has maintained sinus rhythm overnight. Unfortunately, he continues to require low-dose of dopamine to support his blood pressure. He has no complaints of chest pain, dyspnea or edema. Objective: Vital Signs Temp Pulse Resp BP Pulse Ox 37.1 C 73 22 H 108/61 96 08/16/17 20:00 08/17/17 07:41 08/17/17 07:41 08/17/17 07:41 08/17/17 07:41 Laboratory Results 08/16/17 04:25 08/16/17 04:25 08/16/17 08/17/17 08/18/17 05:59 05:59 05:59 Intake Total 3299.4 1903 Output Total 3375 900 Balance -75.6 1003 PT 27.4 SEC (12.0-15.0) H 08/17/17 05:05 INR 2.55 (0.83-1.16) H 08/17/17 05:05 Physical Exam - Physical Exam General Appearance: WD/WN, no apparent distress Neck: non-tender, full range of motion Respiratory: rales (At both bases) Cardiac/Chest: regular rate, rhythm, gallop (Soft 3rd heart sound), No edema, No JVD, No bradycardia, No tachycardia, No diastolic murmur, No systolic murmur Peripheral Pulses: 1+: carotid (R), carotid (L) Abdomen: non-tender, soft Male Genitalia: deferred Rectal: deferred ICD10 Worksheet Patient Problems: Problems Problem Status Onset A-fib Acute Atrial fibrillation Acute Bilateral pleural effusion Acute CHF exacerbation Acute Cardiomyopathy Acute Chest pain Acute Congestive heart failure Acute Hypoxemia Acute Shortness of breath Acute
[2017-08-17] MEDS ORDERED: PROTOCOL MAGNESIUM 1 DOSE IV PRN (10:36)
[2017-08-17] MEDS ORDERED: PROTOCOL POTASSIUM 1 DOSE MISC PRN (10:36)
[2017-08-17] MEDS ORDERED: POTASSIUM CL 10 MEQ TAB PO ONE (11:40)
--- NOTE | 2017-08-17 16:46 | HOSPPROG ---
Hospitalist Progress Note Assessment/Plan: DIAGNOSES: # acute cardiogenic shock # end-stage ischemic cardiomyopathy with congestive heart failure # acute renal failure due to cardiorenal syndrome # severe mitral regurgitation # atrial fib with rapid ventricular response PLANS: -continue dopamine drip at this time -delay any further attempts at diuresis until more stable -as he is not a candidate for transplant, will resume palliative discussions with patient and family when they are available -switching to p. O. amiodarone today, continue monitor car operator -follow electrolytes closely replace potassium and magnesium as needed Seen by me today on hospitals rounds as well as ICU multi disciplinary rounds I reviewed in detail with doctors Danielle and amada My conversations with patient today done through protozoologist SUBJECTIVE: At this time the patient is comfortable without dyspnea chest pain leg pain or swelling Eating okay OBJECTIVE Vitals reviewed: Dropped blood pressure quickly and with tachycardia upon standing despite pressor drip, no fever [employer], my review: Sinus Exam: alert oriented skin warm dry color ok resps not labored lungs few basilar rales heart regular abd soft nondistended nontender, bowel sounds present limbs warm, no edema iv site ok Laboratory data: Potassium and creatinine stable Chest x-ray today, two view: My interpretation shows a very large cardiac silhouette, small bilateral effusions and bibasilar atelectasis, no significant pulmonary edema Objective: Vital Signs Temp Pulse Resp BP Pulse Ox 37.1 C 74 16 97/58 L 97 08/16/17 20:00 08/17/17 16:00 08/17/17 16:00 08/17/17 16:00 08/17/17 16:00 Laboratory Results 08/16/17 04:25 08/17/17 10:00 08/16/17 08/17/17 08/18/17 06:59 06:59 06:59 Intake Total 3299.4 1903 Output Total 3375 900 Balance -75.6 1003 PT 27.4 SEC (12.0-15.0) H 08/17/17 05:05 INR 2.55 (0.83-1.16) H 08/17/17 05:05 - Time Spent With Patient Time Spent with Patient: greater than 35 minutes Time Spent with Patient: Greater than 35 minutes spent on this patients care, greater than 50% of time spent counseling, educating, and coordinating care regarding the above mentioned plan. ICD10 Worksheet Patient Problems: Problems Problem Status Onset A-fib Acute Atrial fibrillation Acute Bilateral pleural effusion Acute CHF exacerbation Acute Cardiomyopathy Acute Chest pain Acute Congestive heart failure Acute Hypoxemia Acute Shortness of breath Acute
[2017-08-17] MEDS: WARFARIN SODIUM 2.5 MG TAB PO SCH (17:32)
[2017-08-18 06:13] LABS: INR 2.35 (0.83-1.16); PROTIME(PATIENT) 25.7 SEC (12.0-15.0)
[2017-08-18] MEDS ORDERED: POTASSIUM CL 10 MEQ TAB PO ONE ×2 (08:33→20:54)
--- NOTE | 2017-08-18 08:42 | PDINTPN ---
[employer] Launch Commander Progress Note Assessment/Plan: Assessment/plan: * End-stage cardiomyopathy-improved. Off dobutamine and dopamine currently. * Atrial fibrillation/flutter-now in normal sinus rhythm after cardioversion -agree with oral amiodarone * Shock-resolved * Chronic renal insufficiency * With acute renal failure history of myocardial infarction coronary disease * AICD * VT prophylaxis * Stress ulcer prophylaxis * Disposition-unclear at this time. Will consult ethics 08/18/17 08:40 Subjective: Sitting up in chair. Comfortable. No pain. Breathing easily. Objective: Vital Signs Temp Pulse Resp BP Pulse Ox 36.0 C 70 18 101/66 97 08/17/17 20:00 08/18/17 06:00 08/18/17 06:00 08/18/17 06:00 08/18/17 06:00 Laboratory Results 08/16/17 04:25 08/18/17 05:55 08/17/17 08/18/17 08/19/17 05:59 05:59 05:59 Intake Total 1903 800 Output Total 900 1200 Balance 1003 -400 PT 25.7 SEC (12.0-15.0) H 08/18/17 05:55 INR 2.35 (0.83-1.16) H 08/18/17 05:55 Laboratory Results 08/16/17 04:25 08/18/17 05:55 08/18/17 08/18/17 05:55 05:55 PT 25.7 SEC H SEC (12.0 - 15.0) INR 2.35 H (0.83 - 1.16) Calcium 9.0 mg/dL mg/dL (8.5 - 10.4) Magnesium 2.0 mg/dL mg/dL (1.6 - 2.3) Chest [id number] by myself. Pacemaker in good position. Cardiomegaly is present. Pulmonary edema has diminished. - Time Spent With Patient Time Spent With Patient: 25 min of time spent with patient, over 1/2 involved with coordination of care or counseling Case discussed with nursing and cardiology Physical Exam - Physical Exam General Appearance: WD/WN, alert EENT: PERRL/EOMI Neck: non-tender, full range of motion, supple, normal inspection Respiratory: chest non-tender, lungs clear, normal breath sounds Cardiac/Chest: regular rate, rhythm, systolic murmur Peripheral Pulses: 2+: carotid (R), carotid (L), femoral (R), femoral (L), dorsalis-pedis (R), dorsalis-pedis (L) Abdomen: normal bowel sounds, non-tender, soft Male Genitalia: deferred Rectal: deferred Skin: normal color, warm/dry Extremities: normal range of motion, non-tender, normal inspection, normal capillary refill Neuro/Psych: alert ICD10 Worksheet Patient Problems: Problems Problem Status Onset A-fib Acute Atrial fibrillation Acute Bilateral pleural effusion Acute CHF exacerbation Acute Cardiomyopathy Acute Chest pain Acute Congestive heart failure Acute Hypoxemia Acute Shortness of breath Acute
[2017-08-18] MEDS: AMIODARONE HCL 200 MG TAB PO SCH (09:00)
[2017-08-18] MEDS: BUMETANIDE 2 MG TAB PO SCH (09:00)
--- NOTE | 2017-08-18 09:00 | SOAPPROG ---
ERNIE Progress Note Assessment/Plan: Assessment: 1. Coronary artery disease with previous anterior infarct status post PCI/ stenting of the LAD. 2. Residual severe, end-stage ischemic cardiomyopathy with an ejection fraction of 10-15 present with a severely dilated left ventricle and chronic [place] heart Association functional class 4 systolic congestive heart failure. 3. Moderate to severe functional mitral regurgitation. 4. Paroxysmal atrial fibrillation/flutter currently in atrial fibrillation/ flutter with a rapid ventricular response. 5. Medical history complicated by social factors to include his undocumented status and lack of availability of advanced congestive heart failure therapies in this country. 6. Acute renal insufficiency likely related to ATN in the setting of hypotension with subsequent normalization of his creatinine. Over the last 24 hr he has shown significant improvement he is off of his dopamine was stable hemodynamics. He is oxygenating well. On examination he has scant bibasilar rales and ankle edema only. Plan: 1. At this point I think we can transfer him to the PCU. 2. I would like to observe him for the next 48-72 hours. 3. During the next several days we will plan to reinstitute his diuretics as well as potentially start low-dose Latrell inhibitor therapy. 4. I have asked electrophysiology to see him regarding the potential utility of AV node ablation. I also wonder if his biventricular ICD can be optimized to help improve his cardiac function. 5. Will restart his atorvastatin. 08/18/17 09:08 Objective: Vital Signs Temp Pulse Resp BP Pulse Ox 36.0 C 70 18 101/66 97 08/17/17 20:00 08/18/17 06:00 08/18/17 06:00 08/18/17 06:00 08/18/17 06:00 Laboratory Results 08/16/17 04:25 08/18/17 05:55 08/17/17 08/18/17 08/19/17 05:59 05:59 05:59 Intake Total 1903 800 Output Total 900 1200 Balance 1003 -400 PT 25.7 SEC (12.0-15.0) H 08/18/17 05:55 INR 2.35 (0.83-1.16) H 08/18/17 05:55 Physical Exam - Physical Exam General Appearance: WD/WN, no apparent distress Neck: non-tender, full range of motion Respiratory: crackles (Isolated to the bases) Cardiac/Chest: regular rate, rhythm, gallop (Soft 3rd heart sound), systolic murmur (1/6 holosystolic murmur at the apex), No edema, No JVD Peripheral Pulses: 1+: carotid (R), carotid (L) Abdomen: non-tender, soft Male Genitalia: deferred Rectal: deferred ICD10 Worksheet Patient Problems: Problems Problem Status Onset Cardiomyopathy Acute Chest pain Acute Atrial fibrillation Acute Congestive heart failure Acute CHF exacerbation Acute Shortness of breath Acute Bilateral pleural effusion Acute Hypoxemia Acute A-fib Acute
--- NOTE | 2017-08-18 14:11 | CPEKG ---
Heart Rate: 82 RR Interval: 732 P-R Interval: 264 QRSD Interval: 156 QT Interval: 456 QTC Interval: 533 P [place]: 35 QRS [place]: -111 T Wave [place]: 71 EKG Severity - ABNORMAL ECG - EKG Impression: SINUS RHYTHM WITH INTERMITTENT VENTRICULAR-PACED COMPLEXES EKG Impression: COMPARED WITH 08/16/2017 AT 9:41 A.M., SINUS RHYTHM NOW PRESENT Electronically Signed By: Theodora Cuellar 18-Aug-2017 18:18:51
[2017-08-18] MEDS: WARFARIN SODIUM 2.5 MG TAB PO SCH (15:36)
[2017-08-18] MEDS: BUMETANIDE 1 MG TAB PO SCH (15:36)
--- NOTE | 2017-08-18 16:12 | HOSPPROG ---
Hospitalist Progress Note Assessment/Plan: DIAGNOSES: # acute cardiogenic shock * Required pressor support but we have now as of today been able to wean off of that # end-stage ischemic cardiomyopathy with congestive heart failure, EF 10%, ongoing class 4 CHF symptoms # acute renal failure due to cardiorenal syndrome * Has resolved with pressor support correction of hypotension # severe mitral regurgitation # atrial fib with rapid ventricular response * Is on full anticoagulation with INR in range I reviewed in detail today with Dr. Torrey Hansen. The optimal medical therapy for him would be a heart transplant, however given his social issues that will probably not be available to him. It is not available here in this country. Dr. Hansen is attempting to contact planting machine crewman in [place] to see if there is any way he could potentially be a candidate for transplant there or an intravascular assist device. For now optimizing medical management with medications will be the plan. Hopefully he will be able to tolerate some diuresis going forward. Dr. Hansen has reprogrammed the pacemaker to a turn off the left and right ventricular pacing leads as he did not feel biventricular pacing was being beneficial, leaving the atrial lead turned on to prevent bradycardias. He will review further with our electrophysiologists to see what their recommendations are. Also he is interested to see if they and AFib ablation could be of any help. PLANS: -review of pacemaker management with crane follower, as well as to see what their thoughts are on an AFib ablation procedure -delay any further attempts at diuresis until more stable; may consider trial of that soon -ongoing cardiac monitoring, careful assessment of vital signs and volume status and respirations -continue amiodarone to hopefully avoid further AFib -follow electrolytes closely replace potassium and magnesium as needed Seen by me today on hospitals rounds as well as ICU multi disciplinary rounds I reviewed in detail with doctors Danielle and amada My conversations with patient today done through school health aide SUBJECTIVE: At this time the patient is comfortable without dyspnea chest pain leg pain or swelling Eating okay OBJECTIVE Vitals reviewed: Now off dopamine, blood pressures are somewhat variable and do get low at times still, no fever, respirations stable [employer], my review: Sinus Exam: alert oriented skin warm dry color ok resps not labored lungs few basilar rales heart regular abd soft nondistended nontender, bowel sounds present limbs warm, no edema iv site ok Laboratory data: Creatinine bit better at 0.9, electrolytes good INR 2.3 12 lead EKG done today, my review of tracing: The rhythm is paced, some via the left ventricular lead in some via the right ventricular lead, no acute abnormalities otherwise Objective: Vital Signs Temp Pulse Resp BP Pulse Ox 36.6 C 88 18 112/78 96 08/18/17 12:00 08/18/17 12:00 08/18/17 12:00 08/18/17 12:00 08/18/17 12:00 Laboratory Results 08/16/17 04:25 08/18/17 05:55 08/17/17 08/18/17 08/19/17 06:59 06:59 06:59 Intake Total 1903 800 300 Output Total 900 1200 Balance 1003 -400 300 PT 25.7 SEC (12.0-15.0) H 08/18/17 05:55 INR 2.35 (0.83-1.16) H 08/18/17 05:55 ICD10 Worksheet Patient Problems: Problems Problem Status Onset A-fib Acute Atrial fibrillation Acute Bilateral pleural effusion Acute CHF exacerbation Acute Cardiomyopathy Acute Chest pain Acute Congestive heart failure Acute Hypoxemia Acute Shortness of breath Acute
[2017-08-18] MEDS: ATORVASTATIN CALCIUM 40 MG TAB PO SCH (22:03)
[2017-08-19 06:54] LABS: INR 2.17 (0.83-1.16); PROTIME(PATIENT) 24.2 SEC (12.0-15.0)
[2017-08-19] MEDS: AMIODARONE HCL 200 MG TAB PO SCH (08:58)
[2017-08-19] MEDS: BUMETANIDE 2 MG TAB PO SCH (08:58)
[2017-08-19] MEDS: ATORVASTATIN CALCIUM 40 MG TAB PO SCH (09:02)
--- NOTE | 2017-08-19 09:20 | SOAPPROG ---
SOAP Progress Note Assessment/Plan: Assessment: 1. Coronary artery disease with previous anterior infarct status post PCI/ stenting of the LAD. 2. Residual severe, end-stage ischemic cardiomyopathy with an ejection fraction of 10-15 present with a severely dilated left ventricle and chronic [place] heart Association functional class 4 systolic congestive heart failure. 3. Moderate to severe functional mitral regurgitation. 4. Paroxysmal atrial fibrillation/flutter currently in atrial fibrillation/ flutter with a rapid ventricular response. 5. Medical history complicated by social factors to include his undocumented status and lack of availability of advanced congestive heart failure therapies in this country. 6. Acute renal insufficiency likely related to ATN in the setting of hypotension with subsequent normalization of his creatinine. He continues to do well. He is maintaining sinus rhythm. At the present time he is able to ambulate without limiting symptoms of dyspnea. Unfortunately, I think we may have reached the end of our options. He is not willing to travel to [place] to receive the necessary care and [facility] in light of his undocumented status. Plan: 1. Today I would like to start a low-dose of Aldactone. He has been placed on 12-,1/2 mg daily. 2. I have also placed him on a low-dose of a potassium supplementation. 3. I would like to monitor him in the hospital here for another 24-48 hours. 4. We may consider starting a low-dose BARBARA-inhibitor. 5. His overall prognosis is poor. 08/19/17 09:19 Subjective: Today he is doing well. He slept well without any difficulties. He has been able to walk in the hallways without limiting symptoms of dyspnea. He has no symptoms of anginal quality chest discomfort. I appreciate the input from electrophysiology. His device was report and yesterday to exclude right ventricular and left ventricular pacing due to concerns regarding placement of his coronary sinus lead and the effects on his QRS complex. I have been in contact with a mailing specialist in [place]. From their standpoint, they think that they might be able to help him there. However, in talking to the patient today he states that he is not willing to travel to [place] due to concerns regarding reentry into this country. Objective: Vital Signs Temp Pulse Resp BP Pulse Ox 36.6 C 63 18 101/69 98 08/19/17 08:35 08/19/17 08:35 08/19/17 08:35 08/19/17 08:35 08/19/17 08:35 Laboratory Results 08/16/17 04:25 08/19/17 06:30 08/18/17 08/19/17 08/20/17 05:59 05:59 05:59 Intake Total 800 720 Output Total 1200 1075 Balance -400 -355 PT 24.2 SEC (12.0-15.0) H 08/19/17 06:30 INR 2.17 (0.83-1.16) H 08/19/17 06:30 Physical Exam - Physical Exam General Appearance: WD/WN, no apparent distress Neck: full range of motion, supple Respiratory: lungs clear, No crackles, No rales, No rhonchi Cardiac/Chest: regular rate, rhythm, gallop (Soft 3rd heart sound), No edema, No JVD Peripheral Pulses: 1+: carotid (R), carotid (L) Abdomen: normal bowel sounds, non-tender, soft Male Genitalia: deferred Rectal: deferred ICD10 Worksheet Patient Problems: Problems Problem Status Onset A-fib Acute Atrial fibrillation Acute Bilateral pleural effusion Acute CHF exacerbation Acute Cardiomyopathy Acute Chest pain Acute Congestive heart failure Acute Hypoxemia Acute Shortness of breath Acute
[2017-08-19] MEDS ORDERED: POTASSIUM CL 10 MEQ TAB PO ONE ×2 (09:39→19:37)
[2017-08-19] MEDS ORDERED: MAGNESIUM SULF 1 GM/DEXTROSE 100 ML BAG IV ONE (09:48)
[2017-08-19] MEDS: SPIRONOLACTONE 25 MG TAB PO SCH (09:58)
[2017-08-19] MEDS: POTASSIUM CL 20 MEQ TAB PO SCH (09:59)
[2017-08-19] MEDS: BUMETANIDE 1 MG TAB PO SCH ×2 (10:06→15:47)
--- NOTE | 2017-08-19 10:09 | CPEKG ---
Heart Rate: 85 RR Interval: 706 P-R Interval: 225 QRSD Interval: 154 QT Interval: 328 QTC Interval: 390 QRS [place]: -94 T Wave [place]: 92 EKG Severity - ABNORMAL ECG - EKG Impression: A-V DUAL-PACED RHYTHM WITH SOME INHIBITION EKG Impression: FIRST DEGREE AV BLOCK EKG Impression: RIGHT BUNDLE BRANCH BLOCK Electronically Signed By: Theodora Cuellar 20-Aug-2017 10:25:47
[2017-08-19] MEDS ORDERED: MAGNESIUM SULF 1 GM/DEXTROSE 100 ML IV ONE (10:20)
--- NOTE | 2017-08-19 14:21 | HOSPPROG ---
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 He is up and walking in his room without difficulty but has not been out hallway yet. Had a good night sleep last night. 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, 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: Sinus Exam: alert oriented skin warm dry color ok resps not labored lungs few basilar rales heart regular abd soft nondistended nontender, bowel sounds present limbs warm, no edema iv site ok Laboratory data: INR in range at 2.1 Metabolic panel looks good 12 lead EKG done today, my interpretation of tracing: Mixed sinus rhythm with pacing, right bundle branch block pattern, nothing acute unchanged from prior EKGs Objective: Vital Signs Temp Pulse Resp BP Pulse Ox 36.8 C 63 18 103/73 97 08/19/17 12:14 08/19/17 12:14 08/19/17 12:14 08/19/17 12:14 08/19/17 12:14 Laboratory Results 08/16/17 04:25 08/19/17 06:30 08/18/17 08/19/17 08/20/17 06:59 06:59 06:59 Intake Total 800 720 Output Total 1200 1075 Balance -400 -355 PT 24.2 SEC (12.0-15.0) H 08/19/17 06:30 INR 2.17 (0.83-1.16) H 08/19/17 06:30 - Time Spent With Patient Time Spent with Patient: greater than 35 minutes Time Spent with Patient: Greater than 35 minutes spent on this patients care, greater than 50% of time spent counseling, educating, and coordinating care regarding the above mentioned plan. ICD10 Worksheet Patient Problems: Problems Problem Status Onset A-fib Acute Atrial fibrillation Acute Bilateral pleural effusion Acute CHF exacerbation Acute Cardiomyopathy Acute Chest pain Acute Congestive heart failure Acute Hypoxemia Acute Shortness of breath Acute
--- NOTE | 2017-08-19 15:05 | ASMTCMCOM ---
CM Note CM Note Notes: Spiritual care met w/ pt today. Pt is under the impression that if he has palliative he cannot get admitted to the hospital. Spiritual care informed him that this is information is incorrect. CM met pt w/ field mechanic. CM also informed pt that he can be admitted to the hospital w/ palliative services. Pt reports that he will speak w/ his to see if he would like palliative going forward. Pt will notify CM what he decides. CM spoke w/ Paige at [facility]. Paige will call pt next week to follow up. CM to follow. Plan: TBD Date Signed: 08/19/2017 03:05 PM Electronically Signed By:TOMMY Stroud
[2017-08-19] MEDS: WARFARIN SODIUM 2.5 MG TAB PO SCH (15:47)
[2017-08-20 07:07] LABS: INR 2.38 (0.83-1.16)
[2017-08-20] MEDS ORDERED: MAGNESIUM SULF 1 GM/DEXTROSE 100 ML IV ONE (08:53)
[2017-08-20] MEDS ORDERED: POTASSIUM CL 10 MEQ TAB PO ONE (08:53)
[2017-08-20] MEDS: POTASSIUM CL 20 MEQ TAB PO SCH (09:27)
[2017-08-20] MEDS: AMIODARONE HCL 200 MG TAB PO SCH (09:27)
[2017-08-20] MEDS: SPIRONOLACTONE 25 MG TAB PO SCH (09:27)
[2017-08-20] MEDS: ATORVASTATIN CALCIUM 40 MG TAB PO SCH (09:27)
[2017-08-20] MEDS: BUMETANIDE 2 MG TAB PO SCH (09:27)
[2017-08-20] MEDS ORDERED: SPIRONOLACTONE 25 MG TAB PO SCH ×2 (09:52)
--- NOTE | 2017-08-20 09:55 | SOAPPROG ---
ERNIE Progress Note Assessment/Plan: Assessment: 1. Coronary artery disease with previous anterior infarct status post PCI/ stenting of the LAD. 2. Residual severe, end-stage ischemic cardiomyopathy with an ejection fraction of 10-15 present with a severely dilated left ventricle and chronic [employer] functional class 4 systolic congestive heart failure. 3. Moderate to severe functional mitral regurgitation. 4. Paroxysmal atrial fibrillation/flutter. Admitted with RVR. Status post cardioversion and on high-dose amiodarone maintaining sinus rhythm. On systemic anticoagulation with Coumadin. 5. Medical history complicated by social factors to include his undocumented status and lack of availability of advanced congestive heart failure therapies in this country. He has declined to travel to [place] to receive more advanced heart failure treatments. 6. Acute renal insufficiency likely related to ATN in the setting of hypotension with subsequent normalization of his creatinine. Plan: 1. At this point I think he can be discharged from the hospital. 2. I would like him to make an appointment to see me in the office sometime next week. I would like him to have a chemistry panel prior to that office visit. 3. His current medications can be continued. 4. His prognosis is poor. Subjective: He appears to be doing well. He slept well last night. Today he has no complaints specifically denying dyspnea, orthopnea, PND and edema. Objective: Vital Signs Temp Pulse Resp BP Pulse Ox 36.8 C 71 16 107/73 98 08/20/17 07:14 08/20/17 07:14 08/20/17 07:14 08/20/17 07:14 08/20/17 07:14 Laboratory Results 08/16/17 04:25 08/20/17 06:45 08/19/17 08/20/17 08/21/17 05:59 05:59 05:59 Intake Total 720 1160 Output Total 1075 750 Balance -355 410 PT 26.0 SEC (12.0-15.0) H 08/20/17 06:45 INR 2.38 (0.83-1.16) H 08/20/17 06:45 Physical Exam - Physical Exam General Appearance: WD/WN, no apparent distress Neck: supple Respiratory: lungs clear, No crackles, No rales, No rhonchi Cardiac/Chest: regular rate, rhythm, No edema, No gallop, No JVD Peripheral Pulses: 1+: carotid (R), carotid (L) Abdomen: non-tender, soft Male Genitalia: deferred Rectal: deferred Neuro/Psych: alert, oriented x 3 ICD10 Worksheet Patient Problems: Problems Problem Status Onset Cardiomyopathy Acute Chest pain Acute Atrial fibrillation Acute Congestive heart failure Acute CHF exacerbation Acute Shortness of breath Acute Bilateral pleural effusion Acute Hypoxemia Acute A-fib Acute
[2017-08-20] MEDS ORDERED: SPIRONOLACTONE 25 MG TAB PO ONE (10:15)
[2017-08-20] MEDS: BUMETANIDE 1 MG TAB PO SCH (15:58)
[2017-08-20] MEDS: WARFARIN SODIUM 2.5 MG TAB PO SCH (15:58)
--- NOTE | 2017-08-20 16:32 | PDDCSUM ---
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 Dung Hansen cardiology PROCEDURES: PICC line insertion TERESITA and electrocardioversion from atrial fibrillation HOSPITAL COURSE SUMMARY: This patient with known severe end-stage cardiomyopathy ejection fraction approximately 10% has had great deal of difficulty staying of hospital despite maximal medical therapy and a good low-salt diet. He comes in at this time with shortness of breath pulmonary edema peripheral edema rapid atrial fibrillation. He was hypotensive with acute renal failure and signs of cardiogenic shock. He required several days of IV pressor therapy in the ICU. He was converted electrically from AFib to sinus and his amiodarone increased from 200 daily to 400 daily. He did not receive diuresis initially as it was not felt he would tolerate that but once he was taken off of the pressors and blood pressures stabilized he did have some very allen diuresis here. He has had remarkable recovery back to being able to ambulate in the hallway on oxygen. At this point he is stable for discharge to home but is felt to be at high risk of ongoing severe heart failure symptoms. An implantable assist device or heart transplant would be medically recommended, but as he is of [place] origin and undocumented here he does not have any type of insurance or finding and these procedures will not be available time here. We did discuss with him in detail that would be recommended that he try to calender supervisor with some providers in [place] to see if he can get such procedures there, however he does not feel that this will be feasible for him for right is reasons and he is currently unwilling to try to travel to [place] to seek out this care. A big part of it seems to probably be that he has been here for some decades in all of his family is currently here, he has for that he would not be able to come back into this country after going into [place]. At this time he is stable for discharge to home but will require very close monitoring so will be seen this coming week with Dr. Hansen in the clinic. He does understand the importance of the low sodium diet and understands his medication changes which is been explained to him through overweaver here PENDING TEST RESULTS: None MEDICATION CHANGES: Bumex dose decreased to 1 mg morning, 2 mg afternoon Aldactone added Amiodarone on increased to total 400 mg daily Metolazone discontinued FOLLOW-UP PLAN: With Dr. Hansen this week in Cardiology Clinic Greater than 35 minutes bedside and care coordination time today
[2017-08-20 17:46] VITALS: BP 96/62
--- NOTE | 2017-08-21 08:44 | ASDISCHSUM ---
Discharge Information Plan Status:Home with No Needs Medically Cleared to Leave:08/20/2017 Discharge Date:08/20/2017 06:28 PM CM D/C Disposition:Home, Routine, Self-Care ADT D/C Disposition:Home, Routine, Self-Care Projected Discharge Date:08/17/2017 11:00 AM Transportation at D/C: Discharge Delay Reason: Follow-Up Date:08/17/2017 11:00 AM Discharge Slot: Final Diagnosis:CP, Cardiomyopathy, Afib, CHF, Bilat PE, Hypoxemia Placement Information Referral Type:*Hospice Referral ID:[id number] Provider Name: Address 1: Phone Number: Address 2: Fax Number: City: Selection Factors: State: Referral Type:Palliative Care Referral ID:[id number] Provider Name:[facility] Address 1:[address] Phone Number: Address 2: Fax Number: City Hospital:[place] Selection Factors: State:[place] Patient Contact Information Contact Name:TERRELL Relationship: Address: Work Phone: City: Alternate Phone: [facility]/Zip Code: Email: Financial Information Financial Class:Self-Pay Primary Plan Desc:SELF PAY Primary Plan Number: Secondary Plan Desc: Secondary Plan Number: Assessment Information [facility] CM Progress Note CM Note CM Note Notes: 61yr old male admitted for CP, Cardiomyopathy, Afib, CHF, Bilat PE, Hypoxemia. Has been to [facility] in July, [facility] for consideration ofLVAD or hrt transplant-not recommended and [facility] in [place]. Being tx medically here for hypotension, advanced hrt failure and AKD. CM to follow for discharge needs. Date Signed: 08/15/2017 10:00 AM Electronically Signed By:Chantelle Spring LCSW [facility] CM Progress Note CM Note CM Note Notes: Dr Hansen had a long discussion with patient and his . [facility] does not have the expertise to perform needed operation. The only hospital in [place] that has the expertise is and they have told them they are unable to help given he is not a [place] citizen. Dr. Hansen encouraged them to return to [place] where they could get care. They have lived in [place] for [place] and have no family or wouldn't know how to access the needed medical assistance. Patient doesn't want to at home and doesn't want his children knowing how sick he is. Ethics, Dr. Sethi present and wondered how best to compromise with patient to help him feel comfortable with care outside the hospital. Contacted [facility] who reports that they met with patient Tuesday when he was at and they were going to open his case at home Tuesday. They will come to talk to him tomorrow at 11:00 for a possible admit to their Care Ctr. [facility] sent updated patient info. Date Signed: 08/15/2017 04:18 PM Electronically Signed By:Chantelle Spring LCSW [facility] Progress Note CM Note CM Note Notes: Patient was cardioverted today. [facility] hospice visit was put on hold. Patient may not be appropriate for in-pt Hospice Care Ctr at this time. Date Signed: 08/16/2017 02:25 PM Electronically Signed By:Chantelle Spring LCSW [facility] Progress Note CM Note CM Note Notes: Spiritual care met w/ pt today. Pt is under the impression that if he has palliative he cannot get admitted to the hospital. Spiritual care informed him that this is information is incorrect. CM met pt w/ mapping technician. CM also informed pt that he can be admitted to the hospital w/ palliative services. Pt reports that he will speak w/ his to see if he would like palliative going forward. Pt will notify CM what he decides. CM spoke w/ Paige at [facility]. Paige will call pt next week to follow up. CM to follow. Plan: TBD Date Signed: 08/19/2017 03:05 PM Electronically Signed By:TOMMY Stroud Case Management Discharge Plan Note Case Management Discharge Discharge Order Complete? Answers: Yes Patient to Obtain Answers: via Family Medications Transportation Arranged Answers: Family/Friends Discharge Comments Notes: 08/21/2017 Case Management Note Pt discharged on 08/20/2017 after case management completed shift. Pt discharged without services. Faxed records to [facility]. [facility] to call pt to check if pt wants services. If pt choses to use [facility] it will be pro ezra. Unable to offer any other services due to lack of insurance. Pt is connected to [facility] for follow up cares. Case Management d/c poc: home with family support. Date Signed: 08/21/2017 08:43 AM Electronically Signed By:Kary Ramos RN Intervention Information
[2017-08-21] MEDS ORDERED: SPIRONOLACTONE 25 MG TAB PO SCH (09:00)
== END 2017-08-20 18:28 | disposition home or self-care (01) | DRG 292 ==
LOC: F2N 06:53 → F2W 08-18 11:55
PROVIDERS: ADMIT Internal Medicine; ATTEND Internal Medicine
PROC: 02HV33Z Insertion of Infusion Device into Superior Vena Cava, Percutaneous Approach (ICD-10-PCS; 2017-08-15)
PROC: B245ZZ4 Ultrasonography of Left Heart, Transesophageal (ICD-10-PCS; principal; 2017-08-16)
PROC: 5A2204Z Restoration of Cardiac Rhythm, Single (ICD-10-PCS; principal; 2017-08-16)
DX: I13.0 Hypertensive heart and chronic kidney disease with heart failure and stage 1 through stage 4 chronic kidney disease, or unspecified chronic kidney disease (principal); I50.22 Chronic systolic (congestive) heart failure; I50.84 End stage heart failure; N17.9 Acute kidney failure, unspecified; I95.2 Hypotension due to drugs; I25.5 Ischemic cardiomyopathy; T44.5X5A Adverse effect of predominantly beta-adrenoreceptor agonists, initial encounter; R51 Headache; R11.0 Nausea; R00.0 Tachycardia, unspecified; I25.10 Atherosclerotic heart disease of native coronary artery without angina pectoris; I48.0 Paroxysmal atrial fibrillation; E86.1 Hypovolemia; E78.5 Hyperlipidemia, unspecified; I25.2 Old myocardial infarction; Z95.5 Presence of coronary angioplasty implant and graft; Z95.810 Presence of automatic (implantable) cardiac defibrillator; I34.0 Nonrheumatic mitral (valve) insufficiency; Z60.8 Other problems related to social environment
CPT/HCPCS: 97116-GP; 97162-GP; 97165-GO; 97535-GO; C1751; J0282; J0461; J1250; J1265; J2704; J3475; J3480